=== PATIENT | female | born 1940 | race African-American/Black ===

== ENCOUNTER 2017-12-26 13:27 | Inpatient (IN) | payer MEDICARE, BC ==
[2017-12-26] MEDS ORDERED: RX INFO: IV CONTRAST WAS GIVEN 1 EACH MISC MISCELLANE PRN (13:56)
[2017-12-26] MEDS ORDERED: FAMOTIDINE 20 MG/2 ML VIAL IV STA (13:58)
[2017-12-26] MEDS ORDERED: methylPREDNISolone SOD SUCCI 125 MG/2 ML VIAL IV STA (13:58)
[2017-12-26] MEDS ORDERED: diphenhydrAMINE 50 MG/ML 1 ML VIAL IVP STA (13:58)
--- NOTE | 2017-12-26 14:17 | ED ---
Neuro HPI - General Chief Complaint: Neuro Symptoms/Deficit Stated Complaint: poss stroke Time Seen by Provider: 12/26/17 13:47 Source: patient Mode of arrival: wheelchair Limitations: no limitations - History of Present Illness Is the patient presenting with stroke symptoms?: Yes Last Known Well Date: 12/25/17 Last Known Well Time: 22:00 Initial Comments: 's patient is 77-year-old woman who presents to be evaluated for possible stroke. She states that she was feeling in her usual state condition when she went to bed last night, but she woke around 9 this morning and noticed that her right leg felt like it was heavy and swollen, and her right hand felt "like it was asleep." She states that the symptoms lasted for a number of minutes and did improve. However she noticed that around 10 AM she was having difficulty with expressing herself, she is having a hard time with word finding. When the patient's family saw her they felt that she should be seen in emergency department. Patient does note that she may have had a stroke in October of this year, having left-sided weakness and trouble with word finding and the patient states that she was not seen in the emergency Department for this, once here primary physician. Location: right arm, right leg History of same: Yes Place: home Severity: mild Quality: weak Improves With: time Worsens With: none Context: other (Woke with symptoms) Treatments Prior to Arrival: Aspirin - Related Data Home Medications: Home Medications Medication Instructions Recorded Confirmed Albuterol Inhaler [Ventolin Hfa 2 puff INHALATION RT-Q6H PRN 12/06/15 12/26/17 Inhaler] Budesonide [Pulmicort Flexhaler] 2 puff INHALATION RT-BID 12/26/17 12/26/17 Clopidogrel [Plavix] 75 mg PO DAILY 12/26/17 12/26/17 Levothyroxine Sodium [Synthroid] 75 mcg PO DAILY 12/26/17 12/26/17 Previous Rx's Medication Instructions Recorded Levalbuterol Nebulized [Xopenex 1.25 mg INHALATION RT-QID PRN #300 12/08/15 Nebulized] ml Aspirin EC [Ecotrin Low Dose] 81 mg PO DAILY #30 tablet. 12/28/17 Atorvastatin Calcium [Lipitor] 10 mg PO HS #30 tab 12/28/17 Allergies/Adverse Reactions: Allergies Allergy/AdvReac Type Severity Reaction Status Date / Time Iodinated Contrast- Oral and Allergy Anaphylaxis Verified 12/26/17 16:49 IV Dye [Iodinated Contrast Media - IV Dye] montelukast sodium Allergy Cough Verified 12/26/17 16:49 [From [facility]] Penicillins Allergy Rash/Hives Verified 12/26/17 16:49 prednisone Allergy Unknown Verified 12/26/17 16:49 Review of Systems ROS Statement: Those systems with pertinent positive or pertinent negative responses have been documented in the HPI. ROS Other: All systems not noted in ROS Statement are negative. Constitutional: Reports: weakness. Denies: fever, chills Eyes: Denies: vision change ENT: Denies: ear pain, hearing loss Respiratory: Denies: cough, dyspnea Cardiovascular: Denies: chest pain, palpitations, syncope Gastrointestinal: Denies: abdominal pain, vomiting, diarrhea Genitourinary: Denies: dysuria, hematuria Musculoskeletal: Denies: back pain Skin: Denies: rash Neurological: Reports: as per HPI, weakness, numbness. Denies: headache, paresthesias, confusion, abnormal gait, vertigo Hematological/Lymphatic: Denies: easy bleeding General Exam Limitations: no limitations General appearance: alert, in no apparent distress Head exam: Present: atraumatic, normocephalic, normal inspection Eye exam: Present: normal appearance. Absent: scleral icterus, conjunctival injection ENT exam: Present: normal oropharynx Neck exam: Present: normal inspection, full ROM Respiratory exam: Present: normal lung sounds bilaterally. Absent: respiratory distress, wheezes, rales, rhonchi, stridor Cardiovascular Exam: Present: regular rate, normal rhythm, normal heart sounds. Absent: systolic murmur, diastolic murmur, rubs, gallop GI/Abdominal exam: Present: soft. Absent: distended, tenderness, guarding, rebound, mass Extremities exam: Present: normal inspection, normal capillary refill. Absent: pedal edema, calf tenderness Back exam: Present: normal inspection. Absent: CVA tenderness (R), CVA tenderness (L) Skin exam: Present: warm, dry, intact, normal color. Absent: rash Stroke MDM - Lab Data Result diagrams: 12/28/17 05:40 12/28/17 05:40 Lab Results 12/26/17 12/26/17 12/26/17 Range/Units 14:23 14:23 14:23 WBC 5.3 (3.8-10.6) k/uL RBC 4.51 (3.80-5.40) m/uL Hgb 13.4 (11.4-16.0) gm/dL Hct 41.9 (34.0-46.0) % MCV 92.9 (80.0-100.0) fL MCH 29.6 (25.0-35.0) pg MCHC 31.8 (31.0-37.0) g/dL RDW 13.2 (11.5-15.5) % Plt Count 302 (150-450) k/uL Neutrophils % 65 % Lymphocytes % 23 % Monocytes % 6 % Eosinophils % 4 % Basophils % 1 % Neutrophils # 3.5 (1.3-7.7) k/uL Lymphocytes # 1.2 (1.0-4.8) k/uL Monocytes # 0.3 (0-1.0) k/uL Eosinophils # 0.2 (0-0.7) k/uL Basophils # 0.0 (0-0.2) k/uL PT (9.0-12.0) sec INR (<1.2) APTT (22.0-30.0) sec Sodium 144 (137-145) mmol/L Potassium 4.4 (3.5-5.1) mmol/L Chloride 107 (98-107) mmol/L Carbon Dioxide 27 (22-30) mmol/L Anion Gap 10 mmol/L BUN 14 (7-17) mg/dL Creatinine 1.00 (0.52-1.04) mg/dL Est GFR (CKD-EPI)AfAm 63 (>60 ml/min/1.73 sqM) Est GFR (CKD-EPI)NonAf 55 (>60 ml/min/1.73 sqM) Glucose 91 (74-99) mg/dL Calcium 9.5 (8.4-10.2) mg/dL Total Bilirubin 0.5 (0.2-1.3) mg/dL AST 26 (14-36) U/L ALT 27 (9-52) U/L Alkaline Phosphatase 44 (38-126) U/L Total Creatine Kinase 348 H (30-135) U/L CK-MB (CK-2) 4.3 H* (0.0-2.4) ng/mL CK-MB (CK-2) Rel Index 1.2 Troponin I <0.012 (0.000-0.034) ng/mL Total Protein 6.5 (6.3-8.2) g/dL Albumin 3.9 (3.5-5.0) g/dL 12/26/17 Range/Units 14:23 WBC (3.8-10.6) k/uL RBC (3.80-5.40) m/uL Hgb (11.4-16.0) gm/dL Hct (34.0-46.0) % MCV (80.0-100.0) fL MCH (25.0-35.0) pg MCHC (31.0-37.0) g/dL RDW (11.5-15.5) % Plt Count (150-450) k/uL Neutrophils % % Lymphocytes % % Monocytes % % Eosinophils % % Basophils % % Neutrophils # (1.3-7.7) k/uL Lymphocytes # (1.0-4.8) k/uL Monocytes # (0-1.0) k/uL Eosinophils # (0-0.7) k/uL Basophils # (0-0.2) k/uL PT 10.7 (9.0-12.0) sec INR 1.1 (<1.2) APTT 24.4 (22.0-30.0) sec Sodium (137-145) mmol/L Potassium (3.5-5.1) mmol/L Chloride (98-107) mmol/L Carbon Dioxide (22-30) mmol/L Anion Gap mmol/L BUN (7-17) mg/dL Creatinine (0.52-1.04) mg/dL Est GFR (CKD-EPI)AfAm (>60 ml/min/1.73 sqM) Est GFR (CKD-EPI)NonAf (>60 ml/min/1.73 sqM) Glucose (74-99) mg/dL Calcium (8.4-10.2) mg/dL Total Bilirubin (0.2-1.3) mg/dL AST (14-36) U/L ALT (9-52) U/L Alkaline Phosphatase (38-126) U/L Total Creatine Kinase (30-135) U/L CK-MB (CK-2) (0.0-2.4) ng/mL CK-MB (CK-2) Rel Index Troponin I (0.000-0.034) ng/mL Total Protein (6.3-8.2) g/dL Albumin (3.5-5.0) g/dL - Medical Decision Making Patient is a 77-year-old woman presenting with neurologic complaints but outside of the treatment window. It does appear that she is having multiple close TIAs, and patient be admitted to have further workup and neurology consultation. - EKG Data -: EKG Interpreted by Me EKG shows normal: sinus rhythm, axis (All), intervals (Normal), QRS complexes ( Normal), ST-T waves (Normal) Rate: normal (Rate 60 bpm) Interpretation: normal EKG Past Medical History Past Medical History: Asthma, CVA/TIA History of Any Multi-Drug Resistant Organisms: None Reported Past Surgical History: Hysterectomy, Orthopedic Surgery Additional Past Surgical History / Comment(s): thyroid, B/L knee surg Past Anesthesia/Blood Transfusion Reactions: No Reported Reaction Past Psychological History: No Psychological Hx Reported Smoking Status: Never smoker Past Alcohol Use History: None Reported Past Drug Use History: None Reported - Past Family History Father Family Medical History: Diabetes Mellitus Course Vital Signs 12/26/17 12/26/17 12/26/17 13:35 15:18 16:30 Temperature 97.7 F Pulse Rate 69 56 L 58 L Pulse Rate [ Internet Ecommerce Specialist ] Respiratory 18 17 17 Rate Blood Pressure 145/82 166/81 137/79 Blood Pressure [Right Arm] O2 Sat by Pulse 100 100 100 Oximetry 12/26/17 12/26/17 12/26/17 16:55 17:55 18:55 Temperature Pulse Rate Pulse Rate [ 60 72 62 Internet Ecommerce Specialist ] Respiratory 17 17 17 Rate Blood Pressure Blood Pressure 134/74 128/70 147/72 [Right Arm] O2 Sat by Pulse 100 99 Oximetry 12/26/17 19:37 Temperature Pulse Rate 64 Pulse Rate [ Internet Ecommerce Specialist ] Respiratory 17 Rate Blood Pressure 149/72 Blood Pressure [Right Arm] O2 Sat by Pulse 99 Oximetry Disposition Clinical Impression: TIA (transient ischemic attack) Disposition: ADMITTED IP TO THIS HOSP Condition: Stable Is patient prescribed a controlled substance at d/c from ED?: No
[2017-12-26 14:41] LABS: Albumin 3.9 g/dL (3.5-5.0); Calcium 9.5 mg/dL (8.4-10.2); Potassium 4.4 mmol/L (3.5-5.1); Total Bilirubin 0.5 mg/dL (0.2-1.3); Total Protein 6.5 g/dL (6.3-8.2)
[2017-12-26 14:43] LABS: Basophils % (A) 1 %; Eosinophils # (A) 0.2 k/uL (0-0.7); Eosinophils % (A) 4 %; HCT 41.9 % (34.0-46.0); HGB 13.4 gm/dL (11.4-16.0); Lymphocytes # (A) 1.2 k/uL (1.0-4.8); Lymphocytes % (A) 23 %; MCH 29.6 pg (25.0-35.0); MCHC 31.8 g/dL (31.0-37.0); MCV 92.9 fL (80.0-100.0); Monocytes # (A) 0.3 k/uL (0-1.0); Monocytes % (A) 6 %; Neutrophils # (A) 3.5 k/uL (1.3-7.7); Neutrophils % (A) 65 %; Platelet Count 302 k/uL (150-450); RBC 4.51 m/uL (3.80-5.40); RDW 13.2 % (11.5-15.5); WBC 5.3 k/uL (3.8-10.6)
[2017-12-26 14:46] LABS: INR 1.1 (<1.2); Partial Thromboplastin Time 24.4 sec (22.0-30.0); Prothrombin Time 10.7 sec (9.0-12.0)
--- NOTE | 2017-12-26 14:46 | XR ---
EXAMINATION TYPE: XR chest 1V portable DATE OF EXAM: 12/26/2017 COMPARISON: December 06, 2015. HISTORY: Shortness of breath TECHNIQUE: Single frontal view of the chest is obtained. FINDINGS: There is no focal air space opacity, pleural effusion, or pneumothorax seen. The cardiac silhouette size is within normal limits. The osseous structures are intact. IMPRESSION: No acute process.
[2017-12-26 14:54] LABS: Creatine Kinase 348 U/L (30-135)
--- NOTE | 2017-12-26 15:00 | CT ---
EXAMINATION TYPE: CT brain wo con for TPA DATE OF EXAM: 12/26/2017 COMPARISON: NONE HISTORY: Patient poor historian. Neuro deficits. CT DLP: 809.2 mGycm Automated exposure control for dose reduction was used. FINDINGS: No acute hemorrhage or major vessel territorial infarct is identified. There is no mass, mass effect, or midline shift. Calvarium is unremarkable. The ventricles and sulci are age-appropriate. However, there are mild chronic white matter ischemic changes noted. Mastoid air cells are well aerated. IMPRESSION: NO SIGNIFICANT FINDINGS. FINDINGS WERE DISCUSSED OVER THE PHONE WITH THE ORDERING PHYSICIAN DR. Yovani gary, BY DR. WING AT 1607 12/26/2017
[2017-12-26 15:05] LABS: Troponin I <0.012 ng/mL (0.000-0.034)
[2017-12-26 15:09] LABS: Creatine Kinase MB 4.3 ng/mL (0.0-2.4)
--- NOTE | 2017-12-26 15:39 | CT ---
EXAMINATION TYPE: CT angio head neck DATE OF EXAM: 12/26/2017 HISTORY: Patient poor historian. Neuro deficits. COMPARISON: CT of the head obtained earlier today CT DLP: 286.4 mGycm. Automated Exposure Control for Dose Reduction was Utilized. TECHNIQUE: CTA scan of the neck is performed with IV Contrast, patient injected with 100 mL of Isovu e 300, axial images are obtained, coronal and sagittal reformatted images are reviewed. Three-D recon structed and MIP images are created on an independent workstation and reviewed. FINDINGS: Carotid/Vascular Structures: There is a normal three-vessel aortic arch. There is a retropharyngeal c ourse to the left internal carotid artery especially at the level of C3. No significant stenosis is i dentified in either internal carotid artery. [place] vessels appear unremarkable. There is no definite aneurysm, dissection, or arteriove nous malformation identified. The right A1 segment is very hypoplastic. There is an anterior communic ating artery identified. Intracranial venous structures appear unremarkable. Other: None IMPRESSION: No significant abnormality is seen. Retropharyngeal course to the left internal carotid artery is noted.
[2017-12-26] MEDS ORDERED: ASPIRIN 325 MG TAB PO STA (16:24)
[2017-12-26 18:20] LABS: Appearance,Urine Clear (Clear); Bacteria,Urine Rare /hpf; Bilirubin,Urine Negative (Negative); Blood,Urine Negative (Negative); Color,Urine Light Yellow; Glucose,Urine (UA) Negative (Negative); Ketones,Urine Negative (Negative); Leukocyte Esterase,Urine Small (Negative); Nitrite,Urine Negative (Negative); Protein,Urine Negative (Negative); RBC,Urine <1 /hpf (0-5); Specific Gravity,Urine 1.037 (1.001-1.035); Squamous Epithelial Cell,Urine 3 /hpf (0-4); Urobilinogen,Urine <2.0 mg/dL (<2.0); WBC,Urine 1 /hpf (0-5)
[2017-12-26] MEDS: BUDESONIDE 1 MG/2 ML NEBU INHALATION SCH (19:53)
[2017-12-26 20:30] VITALS: BMI 32.2
[2017-12-27 04:12] LABS: Cholesterol 173 mg/dL (<200); HDL Cholesterol 70 mg/dL (40-60); LDL Cholesterol,Calculated 95 mg/dL (0-99); Triglycerides 42 mg/dL (<150)
[2017-12-27] MEDS: LEVOTHYROXINE 112 MCG TAB PO SCH (06:47)
[2017-12-27] MEDS: CLOPIDOGREL 75 MG TAB PO SCH (08:04)
[2017-12-27] MEDS: ASPIRIN 325 MG TAB PO SCH (08:04)
[2017-12-27] MEDS ORDERED: AZITHROMYCIN 500 MG TAB PO SCH (09:00)
--- NOTE | 2017-12-27 11:02 | P.HPIM ---
History of Present Illness H&P Date: 12/27/17 Chief Complaint: Right-sided weakness and heaviness in the arm and leg This is a 77-year-old female with a known history of CVA, asthma and hypothyroidism. Patient reports she was just recently diagnosed with a stroke in October. And recently last week she went to her PCP with concerns of stroke like symptoms. And workup was started outpatient. Dr. Gabriel had started patient on Plavix. Apparently yesterday morning around 9:00 patient woke up with headache in the front of her head with right arm and leg weakness and heaviness. She felt that the arm and leg were more swollen than the left. She also had some difficulty with finding her words. Patient reports that symptoms lasted for about 10 minutes. She called a family member who brought her into the emergency room for further evaluation and treatment. Patient reports that the evening before she had been in her usual state of health. Patient denies any chest pain or shortness of breath. Denies any heart palpitations, dizziness or lightheadedness and any vision changes. She denies any nausea or vomiting. Denies any bowel movement changes or urinary symptoms. Computed tomography scan of the brain shows no acute changes. CTA of the neck shows no significant abnormality. EKG shows normal sinus rhythm. Chest x-ray was negative. Echocardiogram is pending. Neurology has been consulted. Review of Systems Please refer to HPI otherwise unremarkable Past Medical History Past Medical History: Asthma, CVA/TIA, Hyperlipidemia, Pneumonia History of Any Multi-Drug Resistant Organisms: None Reported Past Surgical History: Hysterectomy, Orthopedic Surgery Additional Past Surgical History / Comment(s): thyroid, B/L knee surg Past Anesthesia/Blood Transfusion Reactions: No Reported Reaction Past Psychological History: No Psychological Hx Reported Smoking Status: Never smoker Past Alcohol Use History: None Reported Past Drug Use History: None Reported - Past Family History Father Family Medical History: Diabetes Mellitus Medications and Allergies Home Medications Medication Instructions Recorded Confirmed Type Albuterol Inhaler [Ventolin Hfa 2 puff INHALATION RT-Q6H PRN 12/06/15 12/26/17 History Inhaler] Levalbuterol Nebulized [Xopenex 1.25 mg INHALATION RT-QID PRN #300 12/08/15 Rx Nebulized] ml Budesonide [Pulmicort Flexhaler] 2 puff INHALATION RT-BID 12/26/17 12/26/17 History Clopidogrel [Plavix] 75 mg PO DAILY 12/26/17 12/26/17 History Levothyroxine Sodium [Synthroid] 75 mcg PO DAILY 12/26/17 12/26/17 History Allergies Allergy/AdvReac Type Severity Reaction Status Date / Time Iodinated Contrast- Oral and Allergy Anaphylaxis Verified 12/26/17 16:49 IV Dye [Iodinated Contrast Media - IV Dye] montelukast sodium Allergy Cough Verified 12/26/17 16:49 [From [facility]] Penicillins Allergy Rash/Hives Verified 12/26/17 16:49 prednisone Allergy Unknown Verified 12/26/17 16:49 Physical Exam Vitals: Vital Signs Temp Pulse Pulse Pulse Resp BP BP 12/27/17 08:00 16 12/27/17 07:58 97.5 F L 64 16 116/66 12/27/17 04:00 97 F L 58 L 16 90/51 12/27/17 00:00 97.5 F L 85 16 112/59 12/26/17 20:06 66 12/26/17 20:00 97.5 F L 90 16 122/66 12/26/17 19:54 62 12/26/17 19:37 64 17 149/72 12/26/17 18:55 62 17 147/72 12/26/17 17:55 72 17 128/70 12/26/17 16:55 60 17 134/74 12/26/17 16:30 58 L 17 137/79 12/26/17 15:18 56 L 17 166/81 12/26/17 13:35 97.7 F 69 18 145/82 Pulse Ox 12/27/17 08:00 12/27/17 07:58 98 12/27/17 04:00 97 12/27/17 00:00 99 12/26/17 20:06 12/26/17 20:00 100 12/26/17 19:54 12/26/17 19:37 99 12/26/17 18:55 99 12/26/17 17:55 100 12/26/17 16:55 12/26/17 16:30 100 12/26/17 15:18 100 12/26/17 13:35 100 Intake and Output 12/26/17 12/27/17 12/27/17 22:59 06:59 14:59 Intake Total 360 Balance 360 Intake: Oral 360 Other: # Voids 1 Weight 82.6 kg 82.6 kg Head normocephalic Neck supple Lungs clear to auscultation bilaterally no wheezing or crackles Heart regular rate and rhythm S1-S2, no rub or gallop Abdomen is soft nontender nondistended positive bowel sounds no hepatosplenomegaly Extremities no edema Neuro alert and orientated to 3. No facial droop or slurred speech. 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 Results CBC & Chem 7: 12/26/17 14:23 12/26/17 14:23 Labs: Abnormal Lab Results - Last 24 Hours (Table) 12/26/17 12/26/17 12/27/17 Range/Units 14:23 16:36 03:35 Total Creatine Kinase 348 H (30-135) U/L CK-MB (CK-2) 4.3 H* (0.0-2.4) ng/mL HDL Cholesterol 70 H (40-60) mg/dL Ur Specific [place] 1.037 H (1.001-1.035) Ur Leukocyte Esterase Small H (Negative) Urine Bacteria Rare H (None) /hpf Thrombosis Risk Factor Assmnt - Choose All That Apply Any of the Below Risk Factors Present?: Yes Each Factor Represents 1 point: Obesity (BMI >25) Other Risk Factors: Yes Each Risk Factor Represents 3 Points: Age 75 years or older Other congenital or acquired thrombophilia - If yes, enter type in comment: No Thrombosis Risk Factor Assessment Total Risk Factor Score: 4 Thrombosis Risk Factor Assessment Level: Moderate Risk Assessment and Plan Assessment: 1. Right-sided weakness with difficulty finding her words: Possible TIA. Symptoms resolved after 10 minutes. Computed tomography scan of the brain shows no acute changes. CT of the neckand abnormality. EKG and telemetry is showing normal sinus rhythm. Echo is pending. Neurology has been consulted. Continue with telemetry monitoring to rule out any atrial fibrillation. Continue with aspirin and Plavix. Consult PT OT 2. History of recent stroke in October 3. Hypothyroidism continue Synthroid 4. Asthma stable continue with the Pulmicort and albuterol nebulizer treatments GI prophylaxis Pepcid and DVT prophylaxis Lovenox Time with Patient: Greater than 30 (Greater than 50% of the total time spent in counseling and coordination of care.I performed an examination of the patient and discussed their management with the physician Sanitarian Aide. I have reviewed the Physician Sanitarian Aide's notes and agree with the documented findings and plan of care)
--- NOTE | 2017-12-27 11:29 | ECHOF ---
Referral Reason:Thrombus MEASUREMENTS -------- HEIGHT: 160.0 cm WEIGHT: 82.6 kg BP: 90/51 RVIDd: 2.5 cm (< 3.3) IVSd: 1.3 cm (0.6 - 1.1) LVIDd: 3.5 cm (3.9 - 5.3) LVPWd: 1.0 cm (0.6 - 1.1) IVSs: 1.4 cm LVIDs: 2.4 cm LVPWs: 1.1 cm LA Diam: 3.4 cm (2.7 - 3.8) LAESV Index (A-L): 29.68 ml/m Ao Diam: 2.8 cm (2.0 - 3.7) AV Cusp: 1.7 cm (1.5 - 2.6) LA Diam: 3.3 cm (2.7 - 3.8) MV EXCURSION: 16.703 mm (> 18.000) MV EF SLOPE: 37 mm/s (70 - 150) EPSS: 0.2 cm MV E Dylan: 0.63 m/s MV DecT: 189 ms MV A Dylan: 1.05 m/s MV E/A Ratio: 0.60 RAP: 5.00 mmHg RVSP: 14.00 mmHg FINDINGS -------- Sinus rhythm. This was a technically adequate study. The left ventricular size is normal. There is mild concentric left ventricular hypertrophy. Overa ll left ventricular systolic function is low-normal with, an EF between 50 - 55 %. The right ventricle is normal in size. The left atrial size is normal. LA is midly dilated 29-33ml/m2. The right atrial size is normal. The aortic valve is trileaflet, and appears structurally normal. No aortic stenosis or regurgitation. Mild mitral annular calcification present. Mild mitral regurgitation is present. Mild tricuspid regurgitation present. There is no evidence of pulmonary hypertension. The right v entricular systolic pressure, as measured by Doppler, is 14.00mmHg. Trace/mild (physiologic) pulmonic regurgitation. The aortic root size is normal. There is no pericardial effusion. CONCLUSIONS -------- 1. The left ventricular size is normal. 2. There is mild concentric left ventricular hypertrophy. 3. Overall left ventricular systolic function is low-normal with, an EF between 50 - 55 %. 4. LA is midly dilated 29-33ml/m2. 5. The aortic valve is trileaflet, and appears structurally normal. No aortic stenosis or regurgitati on. 6. Mild mitral annular calcification present. 7. Mild mitral regurgitation is present. 8. Mild tricuspid regurgitation present. 9. There is no evidence of pulmonary hypertension. 10. The right ventricular systolic pressure, as measured by Doppler, is 14.00mmHg. 11. Trace/mild (physiologic) pulmonic regurgitation. 12. The aortic root size is normal. 13. There is no pericardial effusion. AIRPLANE ELECTRICIAN: Mendy Montague RDCS
[2017-12-27] MEDS: ALBUTEROL NEBULIZED 2.5 MG/3 ML INHALATION PRN ×2 (11:49→20:26)
[2017-12-27] MEDS: BUDESONIDE 1 MG/2 ML NEBU INHALATION SCH ×2 (11:59→20:26)
[2017-12-27] MEDS: ENOXAPARIN 40 MG/0.4 ML SYRINGE SQ SCH (12:25)
--- NOTE | 2017-12-27 21:36 | P.CNNES ---
History of Present Illness Consult date: 12/27/17 History of Present Illness: The patient is a 77-year-old right-handed black female who woke up on Wednesday morning with swelling of the hands and legs and face. She also had a transient episode of slurred speech and right-sided weakness. One week prior to that she had had an event similar with swelling of the face arm and legs and slurred speech lasting for less than a minute. At that time she had seen her primary care physician Dr. Gabriel who placed her on Plavix. The patient states she stopped taking Plavix on because she was afraid that it might interfere with one of her asthma medications because she did not tell the doctor about the asthma pill. The patient reports that yesterday she had 2 events similar to each other where she experienced the swelling of the body as well as slurred speech. The episodes were very brief and her brother brought her to [facility] emergency room. She states that she was back to her normal self. There has been no more episodes of swelling or right-sided weakness or slurred speech. Emergency room she had a CAT scan of the brain which did not show any acute stroke or hemorrhage. She had a CTA in the emergency room did not show any significant abnormality. No significant stenosis were was identified in either internal carotid artery. She was admitted to the hospital with possible TIA and neurology was consulted. Patient denies any other neurologic complaints such as headache dizziness or ataxia. Review of Systems Constitutional: Denies chills, Denies fever Cardiovascular: Denies chest pain, Denies shortness of breath Respiratory: Denies cough Integumentary: Denies pruritus, Denies rash Neurological: Denies numbness, Denies weakness Psychiatric: Denies anxiety, Denies depression Past Medical History Past Medical History: Asthma, CVA/TIA, Hyperlipidemia, Pneumonia History of Any Multi-Drug Resistant Organisms: None Reported Past Surgical History: Hysterectomy, Orthopedic Surgery Additional Past Surgical History / Comment(s): thyroid, B/L knee surg Past Anesthesia/Blood Transfusion Reactions: No Reported Reaction Past Psychological History: No Psychological Hx Reported Smoking Status: Never smoker Past Alcohol Use History: None Reported Past Drug Use History: None Reported - Past Family History Father Family Medical History: Diabetes Mellitus Medications and Allergies Home Medications Medication Instructions Recorded Confirmed Type Albuterol Inhaler [Ventolin Hfa 2 puff INHALATION RT-Q6H PRN 12/06/15 12/26/17 History Inhaler] Levalbuterol Nebulized [Xopenex 1.25 mg INHALATION RT-QID PRN #300 12/08/15 Rx Nebulized] ml Budesonide [Pulmicort Flexhaler] 2 puff INHALATION RT-BID 12/26/17 12/26/17 History Clopidogrel [Plavix] 75 mg PO DAILY 12/26/17 12/26/17 History Levothyroxine Sodium [Synthroid] 75 mcg PO DAILY 12/26/17 12/26/17 History Allergies Allergy/AdvReac Type Severity Reaction Status Date / Time Iodinated Contrast- Oral and Allergy Anaphylaxis Verified 12/26/17 16:49 IV Dye [Iodinated Contrast Media - IV Dye] montelukast sodium Allergy Cough Verified 12/26/17 16:49 [From [facility]] Penicillins Allergy Rash/Hives Verified 12/26/17 16:49 prednisone Allergy Unknown Verified 12/26/17 16:49 Physical Examination - Vital Signs Vital Signs: Vital Signs Temp Pulse Pulse Resp BP Pulse Ox 12/27/17 20:41 76 12/27/17 20:27 75 12/27/17 20:15 97.8 F 75 17 101/69 98 12/27/17 20:10 75 17 12/27/17 16:00 97.5 F L 72 16 128/64 94 L 12/27/17 12:08 60 12/27/17 12:00 97.3 F L 70 18 106/68 95 12/27/17 11:59 60 12/27/17 11:49 60 12/27/17 11:41 16 12/27/17 08:00 16 12/27/17 07:58 97.5 F L 64 16 116/66 98 12/27/17 04:00 97 F L 58 L 16 90/51 97 12/27/17 00:00 97.5 F L 85 16 112/59 99 Intake and Output 12/27/17 12/27/17 12/27/17 06:59 14:59 22:59 Intake Total 240 490 Output Total 600 Balance -360 490 Intake: IV 10 0.9 10 Oral 240 480 Output: Urine 600 Other: Voiding Method Toilet # Voids 1 1 Weight 82.6 kg - Constitutional General appearance: obese - EENT EENT: PERRL, hearing intact, vision intact - Respiratory Respiratory: lungs clear - Cardiovascular Cardiovascular: regular rate, normal S1, normal S2 - Neurologic Mental status: She was awake alert and oriented. There was no a aphasia or dysarthria. Cranial nerve examination: PERRL, EOMI, VFF, V1/V2/V3 grossly intact, face symmetric, tongue midline Speech examination: intact Sensorimotor examination: intact Detailed motor examination: grossly full strength in all extremities Reflexes: 2+: knee - Psychiatric Psychiatric: mood/affect appropriate Results - Laboratory Findings CBC and BMP: 12/26/17 14:23 12/26/17 14:23 Abnormal Lab Findings: Abnormal Labs 12/26/17 12/26/17 12/27/17 14:23 16:36 03:35 Total Creatine Kinase 348 H CK-MB (CK-2) 4.3 H* HDL Cholesterol 70 H Ur Specific Hume 1.037 H Ur Leukocyte Esterase Small H Urine Bacteria Rare H Assessment and Plan (1) TIA (transient ischemic attack) Current Visit: Yes Status: Acute Code(s): G45.9 - TRANSIENT CEREBRAL ISCHEMIC ATTACK, UNSPECIFIED SNOMED Code(s): 879779622 Plan: The patient is a 77-year-old woman with history of previous TIA consisting of slurred speech admitted to the hospital with episode of slurred speech as well as right-sided weakness. This was transient. She has not had any further episodes. The patient had been placed on Plavix last week with her primary care physician but the patient stopped taking it several days ago concerned that it might interfere with one of her other medications. The patient has likely had a left hemispheric TIA. She has had a CTA which did not show any significant stenosis in either carotid internal carotid artery. She is on telemetry monitoring and she has had a CAT scan of the brain which was unremarkable. She reports that she is also had an MRI at [facility] and we will request a copy of that report to be sent here. Her CPK was elevated on admission as well as her MB fraction. Troponins were unremarkable echo shows mild mitral and tricuspid regurgitation. EF of 50-55% the left ventricular systolic function. Cholesterol is normal. Continue close neuro checks continue Plavix.
[2017-12-28] MEDS: LEVOTHYROXINE 112 MCG TAB PO SCH (06:24)
[2017-12-28 06:29] VITALS: TEMP 97.9
[2017-12-28 06:46] LABS: Basophils % (A) 0 %; Eosinophils # (A) 0.1 k/uL (0-0.7); Eosinophils % (A) 2 %; HCT 40.2 % (34.0-46.0); HGB 12.7 gm/dL (11.4-16.0); Lymphocytes # (A) 2.2 k/uL (1.0-4.8); Lymphocytes % (A) 27 %; MCHC 31.7 g/dL (31.0-37.0); MCV 94.4 fL (80.0-100.0); Mean Platelet Volume 6.9; Monocytes # (A) 0.4 k/uL (0-1.0); Monocytes % (A) 5 %; Neutrophils # (A) 5.3 k/uL (1.3-7.7); Neutrophils % (A) 64 %; Platelet Count 320 k/uL (150-450); RBC 4.25 m/uL (3.80-5.40); RDW 13.3 % (11.5-15.5); WBC 8.2 k/uL (3.8-10.6)
[2017-12-28 06:48] LABS: Glucose,Whole Blood 74 mg/dL (75-99)
[2017-12-28 07:07] LABS: Albumin 3.2 g/dL (3.5-5.0); Calcium 8.9 mg/dL (8.4-10.2); Potassium 4.2 mmol/L (3.5-5.1); Total Bilirubin 0.2 mg/dL (0.2-1.3); Total Protein 5.5 g/dL (6.3-8.2)
[2017-12-28] MEDS: CLOPIDOGREL 75 MG TAB PO SCH (07:59)
[2017-12-28] MEDS: ASPIRIN 325 MG TAB PO SCH (07:59)
[2017-12-28] MEDS: ENOXAPARIN 40 MG/0.4 ML SYRINGE SQ SCH (07:59)
[2017-12-28] MEDS: BUDESONIDE 1 MG/2 ML NEBU INHALATION SCH (08:36)
[2017-12-28] MEDS ORDERED: FAMOTIDINE 20 MG TAB PO SCH (09:00)
[2017-12-28 09:08] VITALS: BP 110/57; PULSE 84; RESP 18
--- NOTE | 2017-12-28 10:58 | P.DS ---
Providers Date of admission: 12/26/17 16:27 Expected date of discharge: 12/28/17 Attending physician: Kelsey Real Consults: 12/26/17 16:25 Consult Physician Routine Consulting Provider: Josseline Prabhakar Consult Reason/Comments: TIA Do you want consulting provider notified?: Yes Primary care physician: Melissa Gabriel Hospital Course: Discharge diagnosis 1. TIA with Right-sided weakness with difficulty finding her words: Symptoms resolved after 10 minutes. Computed tomography scan of the brain shows no acute changes. CTA of the neck no abnormality. EKG and telemetry is showing normal sinus rhythm. Echo shows an EF of 50-55% with no severe valvular abnormality. No arrhythmia noted on EKG or telemetry. Patient seen evaluated by neurology. Aspirin 81 mg daily and Lipitor 10 mg daily has been added. 2. History of recent stroke in October 3. Hypothyroidism continue Synthroid 4. Asthma stable continue with the Pulmicort and albuterol nebulizer treatments 5. Mild renal insufficiency: Creatinine 1.10. Encouraged patient to drink plenty of water repeat BMP in 1 week Hospital course This is a 77-year-old female with a known history of CVA, asthma and hypothyroidism. Patient reports she was just recently diagnosed with a stroke in October. And recently last week she went to her PCP with concerns of stroke like symptoms. And workup was started outpatient. Dr. Gabriel had started patient on Plavix. Apparently yesterday morning around 9:00 patient woke up with headache in the front of her head with right arm and leg weakness and heaviness. She felt that the arm and leg were more swollen than the left. She also had some difficulty with finding her words. Patient reports that symptoms lasted for about 10 minutes. She called a family member who brought her into the emergency room for further evaluation and treatment. Patient reports that the evening before she had been in her usual state of health. Patient denies any chest pain or shortness of breath. Denies any heart palpitations, dizziness or lightheadedness and any vision changes. She denies any nausea or vomiting. Denies any bowel movement changes or urinary symptoms. Computed tomography scan of the brain shows no acute changes. CTA of the neck shows no significant abnormality. EKG shows normal sinus rhythm. Chest x-ray was negative. Echocardiogram is pending. Neurology has been consulted. Patient's symptoms had resolved. Results of testing as stated above. Patient likely suffered from a TIA. Aspirin 81 mg daily and Lipitor 10 mg daily have been added to her regimen of medications. She is medical stable for discharge. And will follow-up with neurology in the office. I performed an examination of the patient and discussed their management with the physician Office Helper [employer]er[employer]. I have reviewed the Physician Office Helper [employer]er[employer]'s notes and agree with the documented findings and plan of care Patient Condition at Discharge: Stable Plan - Discharge Summary New Discharge Prescriptions: New Aspirin EC [Ecotrin Low Dose] 81 mg PO DAILY #30 tablet. Atorvastatin Calcium [Lipitor] 10 mg PO HS #30 tab Continue Albuterol Inhaler [Ventolin Hfa Inhaler] 2 puff INHALATION RT-Q6H PRN PRN Reason: Shortness Of Breath Levalbuterol Nebulized [Xopenex Nebulized] 1.25 mg INHALATION RT-QID PRN # 300 ml PRN Reason: Shortness Of Breath Clopidogrel [Plavix] 75 mg PO DAILY Levothyroxine Sodium [Synthroid] 75 mcg PO DAILY Budesonide [Pulmicort Flexhaler] 2 puff INHALATION RT-BID Discharge Medication List Albuterol Inhaler [Ventolin Hfa Inhaler] 2 puff INHALATION RT-Q6H PRN 12/06/15 [ History] Levalbuterol Nebulized [Xopenex Nebulized] 1.25 mg INHALATION RT-QID PRN #300 ml 12/08/15 [Rx] Budesonide [Pulmicort Flexhaler] 2 puff INHALATION RT-BID 12/26/17 [History] Clopidogrel [Plavix] 75 mg PO DAILY 12/26/17 [History] Levothyroxine Sodium [Synthroid] 75 mcg PO DAILY 12/26/17 [History] Aspirin EC [Ecotrin Low Dose] 81 mg PO DAILY #30 tablet. 12/28/17 [Rx] Atorvastatin Calcium [Lipitor] 10 mg PO HS #30 tab 12/28/17 [Rx] Follow up Appointment(s)/Referral(s): Amy Prabhakar MD [STAFF PHYSICIAN] - 01/06/18 2:30 pm () Melissa Gabriel DO [Primary Care Provider] - 01/10/18 2:00 pm (Wednesday) Ambulatory/Diagnostic Orders: Basic Metabolic Panel [LAB.AMB] Time Frame: 1 Week, Location: Determined By Patient Patient Instructions/Handouts: Transient Ischemic Attack (DC)
== END 2017-12-28 12:47 | disposition home or self-care (01) | DRG 69 ==
LOC: EC 13:27 → 6SEL 16:27
PROVIDERS: ADMIT Internal Medicine; ATTEND Internal Medicine
DX: G45.9 Transient cerebral ischemic attack, unspecified (principal); E78.5 Hyperlipidemia, unspecified; E03.9 Hypothyroidism, unspecified; J45.909 Unspecified asthma, uncomplicated; E66.9 Obesity, unspecified; N28.9 Disorder of kidney and ureter, unspecified; Z79.890 Hormone replacement therapy; Z86.73 Personal history of transient ischemic attack (TIA), and cerebral infarction without residual deficits; Z79.02 Long term (current) use of antithrombotics/antiplatelets; Z79.82 Long term (current) use of aspirin; Z68.32 Body mass index [BMI] 32.0-32.9, adult; Z88.0 Allergy status to penicillin; Z88.8 Allergy status to other drugs, medicaments and biological substances; Z91.041 Radiographic dye allergy status; Z79.899 Other long term (current) drug therapy; Z83.3 Family history of diabetes mellitus; Z90.710 Acquired absence of both cervix and uterus; Z87.01 Personal history of pneumonia (recurrent); R53.1 Weakness
CPT/HCPCS: 36415; 70450; 70496; 70498; 71045; 80053; 80061; 81001; 82550; 82553; 84484; 85025; 85610; 85730; 93005; 93306; 94640; 96374; 96375; 99285

== ENCOUNTER → 2018-01-19 | Outpatient (CLI) | payer MEDICARE, BC | END | disposition home or self-care (01) | LOC: RADECHMAIN 12:20 | PROVIDERS: ATTEND Family Medicine | DX: R00.2 Palpitations (principal); G45.9 Transient cerebral ischemic attack, unspecified | CPT/HCPCS: 93270; 93271 ==

== ENCOUNTER 2018-01-22 08:59 | Emergency (ER) | payer MEDICARE, BC ==
[2018-01-22 09:09] VITALS: BP 136/82; PULSE 69; RESP 16; TEMP 97.8
--- NOTE | 2018-01-22 09:32 | ED ---
General Adult HPI - General Chief complaint: Overdose Stated complaint: Accidentally took 2nd dose of medication Time Seen by Provider: 01/22/18 09:12 Source: patient, RN notes reviewed, old records reviewed Mode of arrival: ambulatory Limitations: no limitations - History of Present Illness Initial comments: Patient is 77-year-old female presented to the emergency room today with a chief complaint of an accidental second dose of her Plavix this morning. She states she wakes up early in the morning at 3 AM to take her dose of Plavix has been she takes her Synthroid later when she wakes up. She states that when she woke up again at 7 AM she went to take her Synthroid pill but then noticed that she accidentally grabbed the wrong pill bottle and took a second dose of Plavix. Patient denies any complaints or symptoms. Patient denies any recent fever, chills, shortness of breath, chest pain, back pain, abdominal pain, nausea or vomiting, numbness or tingling, dysuria or hematuria, constipation or diarrhea, headaches or visual changes, or any other complaints. - Related Data Home Medications Medication Instructions Recorded Confirmed Albuterol Inhaler [Ventolin Hfa 2 puff INHALATION RT-Q6H PRN 12/06/15 01/22/18 Inhaler] Budesonide [Pulmicort Flexhaler] 2 puff INHALATION RT-BID 12/26/17 01/22/18 Clopidogrel [Plavix] 75 mg PO DAILY 12/26/17 01/22/18 Levothyroxine Sodium [Synthroid] 75 mcg PO DAILY 12/26/17 01/22/18 Previous Rx's Medication Instructions Recorded Levalbuterol Nebulized [Xopenex 1.25 mg INHALATION RT-QID PRN #300 12/08/15 Nebulized] ml Aspirin EC [Ecotrin Low Dose] 81 mg PO DAILY #30 tablet. 12/28/17 Atorvastatin Calcium [Lipitor] 10 mg PO HS #30 tab 12/28/17 Allergies Allergy/AdvReac Type Severity Reaction Status Date / Time Iodinated Contrast- Oral and Allergy Anaphylaxis Verified 01/22/18 09:09 IV Dye [Iodinated Contrast Media - IV Dye] montelukast sodium Allergy Cough Verified 01/22/18 09:09 [From [facility]] Penicillins Allergy Rash/Hives Verified 01/22/18 09:09 prednisone Allergy Unknown Verified 01/22/18 09:09 Review of Systems ROS Statement: Those systems with pertinent positive or pertinent negative responses have been documented in the HPI. ROS Other: All systems not noted in ROS Statement are negative. Past Medical History Past Medical History: Asthma, CVA/TIA History of Any Multi-Drug Resistant Organisms: None Reported Past Surgical History: Hysterectomy, Orthopedic Surgery Additional Past Surgical History / Comment(s): thyroid, B/L knee surg Past Anesthesia/Blood Transfusion Reactions: No Reported Reaction Past Psychological History: No Psychological Hx Reported Smoking Status: Never smoker Past Alcohol Use History: None Reported Past Drug Use History: None Reported - Past Family History Father Family Medical History: Diabetes Mellitus General Exam - General Exam Comments Initial Comments: General: The patient is awake and alert, in no distress, and does not appear acutely ill. Eye: extra-ocular movements are intact. No nystagmus. There is normal conjunctiva bilaterally. Neck: The neck is supple, there is no tenderness or JVD. Cardiovascular: There is a regular rate and rhythm. No murmur, rub or gallop is appreciated. Respiratory: Lungs are clear to auscultation, respirations are non-labored, breath sounds are equal. No wheezes, stridor, rales, or rhonchi. Musculoskeletal: Normal ROM, no tenderness. Strength 5/5. Sensation intact. Neurological: A&O x 3. CN II-XII intact, There are no obvious motor or sensory deficits. Coordination appears grossly intact. Speech is normal. Skin: Skin is warm and dry and no rashes or lesions are noted. Psychiatric: Cooperative, appropriate mood & affect, normal judgment. Limitations: no limitations Course Vital Signs 01/22/18 09:05 Temperature 97.8 F Pulse Rate 69 Respiratory 16 Rate Blood Pressure 136/82 O2 Sat by Pulse 98 Oximetry Disposition Clinical Impression: Accidental overdose Disposition: HOME SELF-CARE Condition: Good Instructions: Clopidogrel (By mouth) Is patient prescribed a controlled substance at d/c from ED?: No Referrals: Melissa Gabriel DO [Primary Care Provider] - 1-2 days Time of Disposition: 09:32
== END 2018-01-22 09:58 | disposition home or self-care (01) ==
LOC: EC 08:59
DX: T45.521A Poisoning by antithrombotic drugs, accidental (unintentional), initial encounter (principal); J45.909 Unspecified asthma, uncomplicated; Z86.73 Personal history of transient ischemic attack (TIA), and cerebral infarction without residual deficits; Z79.51 Long term (current) use of inhaled steroids; Z79.02 Long term (current) use of antithrombotics/antiplatelets; Z79.899 Other long term (current) drug therapy; Z91.041 Radiographic dye allergy status; Z88.8 Allergy status to other drugs, medicaments and biological substances; Z88.0 Allergy status to penicillin
CPT/HCPCS: 99284

== ENCOUNTER 2018-03-17 07:49 | Day surgery (SDC) | payer MEDICARE, BC ==
[2018-03-14 14:35] VITALS: BMI 32.5
[2018-03-17] MEDS ORDERED: SODIUM CHLORIDE 0.9% 1,000 ML IV ONE (08:04)
[2018-03-17] MEDS ORDERED: MIDAZOLAM 2 MG/2 ML VIAL ONE (09:31)
[2018-03-17] MEDS ORDERED: fentaNYL (PF) 50 MCG/ML 2 ML AMP ONE (09:32)
[2018-03-17] MEDS ORDERED: fentaNYL (PF) 50 MCG/ML 2 ML AMP IV ONE (09:49)
[2018-03-17] MEDS ORDERED: BENZOCAINE SPRAY 1 CAN MUCOUS MEM ONE (09:49)
[2018-03-17] MEDS ORDERED: MIDAZOLAM 2 MG/2 ML VIAL IV ONE ×2 (09:50→09:57)
[2018-03-17] MEDS ORDERED: PROPOFOL 10 MG/ML 20 ML VIAL IV ONE (10:05)
--- NOTE | 2018-03-17 10:43 | ECHOT ---
TRANSESOPHAGEAL ECHOCARDIOGRAM DATE OF SERVICE: 03/17/2018. REASON FOR THE STUDY: This is a pleasant 77-year-old female patient who was diagnosed with TIA, which was recurrent. The transesophageal echocardiogram is to rule out any cardiac source of embolization. COMPLICATION: None. LEVEL OF SEDATION: Deep sedation was performed using propofol with anesthesiologist in the room. PROCEDURE DESCRIPTION: After obtaining an informed consent, explaining the procedure, benefits, risks, complications and alternatives, the patient was brought to the transesophageal echocardiogram suite. A pulse oximetry and heart rate monitors were attached to the patient prior to the procedure. The patient's throat was sprayed using lidocaine locally. Following that, the patient was turned into left lateral position. A bite guard was placed and the patient was then sedated with the above doses of Versed and fentanyl in divided doses. Following that, the transesophageal echocardiogram probe was advanced through the bite guard into the mid esophagus where 2-D echocardiogram images as well as color Doppler images of various cardiac structures were obtained. We evaluated the interatrial septum using 2-D echocardiogram, color Doppler, and contrast study. The procedure was completed. There were no complications. FINDINGS: The left ventricular dimension and systolic function appeared to be within normal limits. The right ventricle dimension and systolic function appeared to be within normal limits. Left atrium appeared to be mildly dilated. The interatrial septum appeared to be aneurysmal with evidence of mweud-eu-sozu shunt consistent with patent hickman ovale. The left atrial appendage appeared to be free from any thrombus. The aortic valve is trileaflet valve without stenosis or regurgitation. The mitral valve seems to be normal with trace MR. Normal tricuspid valve and pulmonic valve. CONCLUSION: 1. 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 2. Normal left atrial appendage without any evidence of thrombus. 3. Normal left ventricular dimension and systolic function. 4. Normal cardiac chamber sizes. 5. Normal intracardiac valves. POSTPROCEDURE MANAGEMENT: PFO closure. MMODL / IJN: [id number] /
[2018-03-17 10:46] VITALS: TEMP 98
[2018-03-17 11:18] VITALS: RESP 16
[2018-03-17 12:58] VITALS: BP 131/61; PULSE 72
== END 2018-03-17 12:59 | disposition home or self-care (01) ==
LOC: CATHCVL 07:49
PROVIDERS: ATTEND Internal Medicine Interventional Cardiology
DX: G45.9 Transient cerebral ischemic attack, unspecified (principal); I74.9 Embolism and thrombosis of unspecified artery; J45.909 Unspecified asthma, uncomplicated; E78.5 Hyperlipidemia, unspecified; E03.9 Hypothyroidism, unspecified; Q21.1 Atrial septal defect; Z79.02 Long term (current) use of antithrombotics/antiplatelets; Z79.899 Other long term (current) drug therapy; Z88.0 Allergy status to penicillin; Z86.73 Personal history of transient ischemic attack (TIA), and cerebral infarction without residual deficits; Z88.8 Allergy status to other drugs, medicaments and biological substances; Z88.4 Allergy status to anesthetic agent; Z91.041 Radiographic dye allergy status
CPT/HCPCS: 93312; 93320; 93325; J2250; J3010; J2704

== ENCOUNTER → 2018-04-18 | Outpatient (CLI) | payer MEDICARE, BC ==
[2018-04-18 17:23] LABS: HCT 40.7 % (34.0-46.0); HGB 12.9 gm/dL (11.4-16.0); Hypochromasia Slight; MCH 30.2 pg (25.0-35.0); MCHC 31.7 g/dL (31.0-37.0); MCV 95.2 fL (80.0-100.0); Mean Platelet Volume 6.5; Platelet Count 276 k/uL (150-450); RBC 4.27 m/uL (3.80-5.40); RDW 14.4 % (11.5-15.5); WBC 7.3 k/uL (3.8-10.6)
[2018-04-18 18:06] LABS: Potassium 4.9 mmol/L (3.5-5.1)
== END | disposition home or self-care (01) ==
LOC: LABPAT 16:39
PROVIDERS: ATTEND Internal Medicine Interventional Cardiology
DX: Z01.812 Encounter for preprocedural laboratory examination (principal); Q21.0 Ventricular septal defect
CPT/HCPCS: 36415; 80051; 82565; 84520; 85027

== ENCOUNTER 2018-04-27 11:07 | Inpatient (IN) | payer MEDICARE, BC ==
[2018-04-20 10:07] VITALS: BMI 32.1
[~2018-04-27 11:07] MED LIST: CLINDAMYCIN 600 MG in DEXTROSE 5% IN WATER 50 ML IVPB ONE; SODIUM CHLORIDE 0.9% 1,000 ML in EMPTY BAG 1 BAG IV ONE
[2018-04-27] MEDS: ASPIRIN 325 MG TAB PO SCH ×2 (11:30→18:36)
[2018-04-27] MEDS ORDERED: SODIUM CHLORIDE 0.9% 1,000 ML IV ONE (11:50)
[2018-04-27] MEDS ORDERED: MIDAZOLAM 2 MG/2 ML VIAL IVP ONE (14:01)
[2018-04-27] MEDS: LIDOCAINE 1% INJ 10MG/ML (20 ML MDV) SQ ONE ×2 (14:08→14:11)
[2018-04-27] MEDS ORDERED: HEPARIN SODIUM 1,000 UN/ML (10ML VL) IV ONE (14:10)
[2018-04-27] MEDS ORDERED: fentaNYL (PF) 50 MCG/ML 2 ML AMP IVP ONE (14:10)
[2018-04-27] MEDS ORDERED: IOPAMIDOL-250 50ML BTL IV ONE (14:30)
[2018-04-27] MEDS ORDERED: CLOPIDOGREL 75 MG TAB PO ONE (14:50)
--- NOTE | 2018-04-27 15:30 | CC ---
CARDIAC CATHETERIZATION REPORT DATE OF SERVICE: April 27, 2018 PERFORMING PHYSICIAN: Edison Armenta MD, coordinate measuring equipment operator. PROCEDURE PERFORMED: 1. Intracardiac echocardiogram imaging. 2. Successful percutaneous closure of patent hickman ovale using 35 mm Amplatzer PFO occluder with good results and without any residual shunt. 3. Right atrial angiogram. INDICATION: This is a pleasant 77-year-old female patient who suffered from a stroke. She underwent transesophageal echocardiogram and that revealed patent hickman ovale with [id number] shunt. COMPLICATION: None. LEVEL OF SEDATION: Moderate with sedation length of 25 minutes. APPROACH: Right common femoral vein. PROCEDURE DESCRIPTION: After obtaining an informed consent, the patient was brought to cardiac construction or leak gang laborer. The right common femoral vein was cannulated x2. I placed two 8-Armenian sheaths in the right common femoral vein. Subsequently I did start anticoagulation using heparin and the patient was given 8000 units of heparin with ACT monitoring throughout the procedure. After that I did advance the intracardiac echocardiogram probe to the right atrium where I did interrogate the heart and interrogated the interatrial septum and measured the patent hickman ovale tunnel. After that I did cross the PFO using a J-wire with multipurpose catheter. I did advance the wire to the left upper pulmonary vein. After that, I did decide to close the PFO using 35 mm Amplatzer PFO occluder. At that point, I did exchange my 11 cm L 8-Armenian sheath in the right common femoral vein into the long delivery sheath. I did exchange my J-wire into a stiff Amplatzer wire. I did exchange sheath over the Amplatzer stiff wire and the tip of the sheath was positioned in the left atrium. After that, I did advanced the Amplatzer PFO occluder through the sheath where I deployed initially the left atrial occluded and then the right atrial occluded. Before I released the device, I did interrogate again using the eyes and there was no residual shunt. The procedure was completed without any complication. After that I did exchange my long sheath into short sheath using an 0.035 wire. The procedure was completed without any complication. POSTPROCEDURE MANAGEMENT: 1. Dual anti-platelet therapy. 2. Risk factors modifications. 3. Follow up with the patient. MMODL / IJN: [id number] /
--- NOTE | 2018-04-27 15:36 | LTR ---
April 27, [address] Gabriel: Ms. Rhoda Crane underwent successful percutaneous closure of patent hickman ovale using Amplatzer device with good results and without any complication. Thank you for allowing me to participate in her care and please do not hesitate to call if you have any question or concern. MMODL / IJN: [id number] /
[2018-04-27] MEDS: BUDESONIDE 1 MG/2 ML NEBU INHALATION SCH (20:10)
[2018-04-27] MEDS ORDERED: ATORVASTATIN 40 MG TAB PO SCH (21:00)
[2018-04-28] MEDS ORDERED: LEVOTHYROXINE 75 MCG TAB PO SCH (06:30)
[2018-04-28 06:41] LABS: Basophils % (A) 0 %; Eosinophils # (A) 0.1 k/uL (0-0.7); Eosinophils % (A) 1 %; HCT 40.8 % (34.0-46.0); HGB 12.4 gm/dL (11.4-16.0); Hypochromasia Slight; Lymphocytes # (A) 1.8 k/uL (1.0-4.8); Lymphocytes % (A) 18 %; MCH 29.6 pg (25.0-35.0); MCHC 30.3 g/dL (31.0-37.0); MCV 97.7 fL (80.0-100.0); Mean Platelet Volume 6.3; Monocytes # (A) 0.5 k/uL (0-1.0); Monocytes % (A) 5 %; Neutrophils # (A) 7.4 k/uL (1.3-7.7); Neutrophils % (A) 75 %; Platelet Count 261 k/uL (150-450); RBC 4.18 m/uL (3.80-5.40); RDW 14.7 % (11.5-15.5); WBC 9.9 k/uL (3.8-10.6)
[2018-04-28 06:52] LABS: Calcium 9.1 mg/dL (8.4-10.2); Potassium 4.3 mmol/L (3.5-5.1)
[2018-04-28] MEDS ORDERED: SYMBICORT 80-4.5 MCG INHALER INHALATION SCH (08:00)
[2018-04-28] MEDS: BUDESONIDE 1 MG/2 ML NEBU INHALATION SCH (08:37)
--- NOTE | 2018-04-28 08:50 | XR ---
EXAMINATION TYPE: XR chest 2V DATE OF EXAM: 04/28/2018 COMPARISON: 12/26/2017 TECHNIQUE: PA and lateral views submitted. HISTORY: Suggestion of previous cardiac surgery correlate clinically. FINDINGS: The lungs are clear and there is no pneumothorax, pleural effusion, or focal pneumonia. Suggestion of previous cardiac surgery. Correlate clinically. Subsegmental changes at the left lung base. No pne umothorax or overt failure. IMPRESSION: 1. Left basilar atelectasis or early infiltrate with evidence of previous cardiac surgery. Correlate clinically.
[2018-04-28] MEDS ORDERED: CLOPIDOGREL 75 MG TAB PO SCH ×2 (09:00)
[2018-04-28] MEDS ORDERED: ASPIRIN 325 MG TAB PO SCH ×2 (09:00)
[2018-04-28 09:09] VITALS: BP 100/56; PULSE 64; RESP 18; TEMP 98
[2018-04-28] MEDS: ASPIRIN 325 MG TAB PO SCH (09:25)
--- NOTE | 2018-04-28 12:18 | ECHOF ---
Referral Reason:Post ASD/PFO Insertion MEASUREMENTS -------- HEIGHT: 160.0 cm WEIGHT: 83.5 kg BP: 101/56 RVIDd: 2.0 cm (< 3.3) IVSd: 0.7 cm (0.6 - 1.1) LVIDd: 3.7 cm (3.9 - 5.3) LVPWd: 0.9 cm (0.6 - 1.1) IVSs: 1.0 cm LVIDs: 2.1 cm LVPWs: 1.1 cm LAESV Index (A-L): 20.71 ml/m Ao Diam: 3.0 cm (2.0 - 3.7) AV Cusp: 1.8 cm (1.5 - 2.6) LA Diam: 2.2 cm (2.7 - 3.8) EPSS: 0.2 cm MV E Dylan: 0.92 m/s MV DecT: 251 ms MV A Dylan: 0.90 m/s MV E/A Ratio: 1.02 RAP: 5.00 mmHg RVSP: 12.41 mmHg MV EF SLOPE: 67.46 mm/s (70 - 150) MV EXCURSION: 1.41 cm (> 18.000) FINDINGS -------- Sinus rhythm. This was a technically good study. The left ventricular size is normal. Left ventricular wall thickness is normal. Overall left vent ricular systolic function is normal with, an EF between 55 - 60 %. The right ventricle is normal in size and function. Normal LA size by volume 22+/-6 ml/m2. The right atrium is normal in size. The aortic valve is trileaflet, and appears structurally normal. No aortic stenosis or regurgitation. The mitral valve leaflets are mildly thickened. Mild mitral regurgitation is present. Trace tricuspid regurgitation present. Right ventricular systolic pressure is normal at < 35 mmHg. The right ventricular systolic pressure, as measured by Doppler, is 12.41mmHg. Trace/mild (physiologic) pulmonic regurgitation. The aortic root size is normal. Normal inferior vena cava with normal inspiratory collapse consistent with estimated right atrial pre ssure of 5 mmHg. There is no pericardial effusion. CONCLUSIONS -------- 1. Sinus rhythm. 2. This was a technically good study. 3. The left ventricular size is normal. 4. Left ventricular wall thickness is normal. 5. Overall left ventricular systolic function is normal with, an EF between 55 - 60 %. 6. Normal LA size by volume 22+/-6 ml/m2. 7. The aortic valve is trileaflet, and appears structurally normal. No aortic stenosis or regurgitati on. 8. The mitral valve leaflets are mildly thickened. 9. Mild mitral regurgitation is present. 10. Trace tricuspid regurgitation present. 11. Right ventricular systolic pressure is normal at < 35 mmHg. 12. Trace/mild (physiologic) pulmonic regurgitation. 13. The aortic root size is normal. 14. There is no pericardial effusion. INSIDE SALES TRAINER: Rory Goodwin RDCS
--- NOTE | 2018-04-28 12:33 | ECHOF ---
Referral Reason:Post ASD/PFO Insertion MEASUREMENTS -------- HEIGHT: 160.0 cm WEIGHT: 83.5 kg BP: FINDINGS -------- Sinus rhythm. Pt had PFO/ASD Closure 04/27/18 Limited Echo to check device. CONCLUSIONS -------- 1. Pt had PFO/ASD Closure 04/27/18 Limited Echo to check device. WATER PLANT PUMP OPERATOR: Mendy Montague RDCS
--- NOTE | 2018-04-28 16:04 | DS ---
DISCHARGE SUMMARY DATE OF ADMISSION: 04/27/2018 DATE OF DISCHARGE: 04/28/2018 BRIEF HISTORY: This is a very pleasant 77-year-old -[place] female patient who suffered from stroke. She underwent transesophageal echocardiogram recently that revealed aneurysmal interatrial septum with evidence of patent hickman ovale and iyizl-it-gnuk shunt. The patient underwent yesterday successful percutaneous closure of patent foramen ovale using 35 mm Amplatzer PFO occluder device with good results by the end and without any residual shunt. The procedure was performed from the right groin. Her right groin today is soft and non-tender and without any bruises. The patient is going to be discharged home on dual anti-platelet therapy, and I will follow up with the patient in the office in a week from now. TONY / CHRISTINAN: [id number] /
== END 2018-04-28 13:15 | disposition home or self-care (01) | DRG 274 ==
LOC: CATHCVL 11:07 → 6SEL 15:57
PROVIDERS: ADMIT Internal Medicine Interventional Cardiology; ATTEND Internal Medicine Interventional Cardiology
PROC: B244ZZ4 Ultrasonography of Right Heart, Transesophageal (ICD-10-PCS; 2018-04-27)
PROC: 02U53JZ Supplement Atrial Septum with Synthetic Substitute, Percutaneous Approach (ICD-10-PCS; principal; 2018-04-27 13:47)
PROC: B214YZZ Fluoroscopy of Right Heart using Other Contrast (ICD-10-PCS; 2018-04-27 13:47)
DX: Q21.1 Atrial septal defect (principal); E78.5 Hyperlipidemia, unspecified; E03.9 Hypothyroidism, unspecified; Z79.02 Long term (current) use of antithrombotics/antiplatelets; Z79.890 Hormone replacement therapy; Z79.51 Long term (current) use of inhaled steroids; Z79.899 Other long term (current) drug therapy; Z86.73 Personal history of transient ischemic attack (TIA), and cerebral infarction without residual deficits; Z88.0 Allergy status to penicillin; Z88.8 Allergy status to other drugs, medicaments and biological substances
CPT/HCPCS: 71046; 80048; 85025; 86850; 86900; 86901; 93306; 93308; 93581; 93662; 94640

== ENCOUNTER → 2018-05-18 | Outpatient (CLI) | payer MEDICARE, BC ==
[2018-05-18 13:19] LABS: T4, Free (Free Thyroxine) 1.04 ng/dL (0.78-2.19)
== END | disposition home or self-care (01) ==
LOC: LABWHC1 12:12
PROVIDERS: ATTEND Internal Medicine Critical Care Medicine
DX: C73 Malignant neoplasm of thyroid gland (principal)
CPT/HCPCS: 36415; 84439; 84443

== ENCOUNTER → 2019-01-02 | Outpatient (CLI) | payer MEDICARE, BC | END | disposition home or self-care (01) | LOC: LABWHC1 12:45 | PROVIDERS: ATTEND Internal Medicine Endocrinology, Diabetes & Metabolism | DX: E03.8 Other specified hypothyroidism (principal) | CPT/HCPCS: 36415; 84443 ==

== ENCOUNTER → 2019-02-20 | Outpatient (CLI) | payer MEDICARE, BC | END | disposition home or self-care (01) | LOC: LABWHC1 12:32 | PROVIDERS: ATTEND Internal Medicine Endocrinology, Diabetes & Metabolism | DX: E03.8 Other specified hypothyroidism (principal) | CPT/HCPCS: 36415; 84443 ==

== ENCOUNTER → 2019-04-18 | Outpatient (CLI) | payer MEDICARE, BC | END | disposition home or self-care (01) | LOC: LABPAT 13:10 | PROVIDERS: ATTEND Orthopaedic Surgery | DX: Z01.812 Encounter for preprocedural laboratory examination (principal) | CPT/HCPCS: 87070 ==

== ENCOUNTER → 2019-04-20 | Outpatient (CLI) | payer MEDICARE, BC ==
--- NOTE | 2019-04-20 17:16 | XR ---
EXAMINATION TYPE: XR chest 2V DATE OF EXAM: 04/20/2019 COMPARISON: Prior chest x-ray 04/28/2018 HISTORY: Preop testing TECHNIQUE: Frontal and lateral views of the chest are obtained. FINDINGS: There is no focal air space opacity, pleural effusion, or pneumothorax seen. Some subsegme ntal atelectatic change or scarring suspected at the right lung base. The cardiac silhouette size is within normal limits. There is eventration of the right hemidiaphragm. Patient is rotated. Atrial se ptal defect repair device remains in place and is stable. The osseous structures are intact. IMPRESSION: No acute cardiopulmonary process.
== END | disposition home or self-care (01) ==
LOC: RADXRMAIN 15:39
PROVIDERS: ATTEND Family Medicine
DX: Z01.818 Encounter for other preprocedural examination (principal)
CPT/HCPCS: 71046

== ENCOUNTER 2019-05-08 13:36 | Inpatient (IN) | payer MEDICARE, BC ==
[2019-05-02 15:34] VITALS: BMI 30.8
--- NOTE | 2019-05-07 14:30 | HP ---
HISTORY AND PHYSICAL REASON FOR ADMISSION: Surgery scheduled for 05/08/2019 HISTORY OF PRESENT ILLNESS: Rhoda Crane is a 70-year-old patient seen with symptomatic left knee osteoarthritis. We discussed treatment options with her. She elected to proceed with total knee arthroplasty. Consent was obtained. Medical clearance was provided by Dr. Santiago. Cardiac clearance was provided by Dr. Armenta. PAST MEDICAL HISTORY: Asthma. PAST SURGICAL HISTORY: Knee arthroscopy. MEDICATIONS: Albuterol. ALLERGIES: PENICILLIN. SOCIAL HISTORY: She denies tobacco use. PHYSICAL EXAMINATION: Evaluation of the left knee: Range of motion 0 to 130 degrees. Tenderness medial joint line. Crepitus medial patellofemoral and patellofemoral compartments. Ligaments stable. Hip rotation without pain. Distal neurovascular exam intact. RADIOGRAPHS: Left knee radiographs revealed moderate medial moderate lateral and severe patellofemoral compartment osteoarthritis. IMPRESSION: 1. Left knee osteoarthritis. 2. Asthma. PLAN: Left total knee arthroplasty. Surgery scheduled for 05/08/2019. MMODL / IJN: [id number] /
[~2019-05-08 13:36] MED LIST changes: +ACETAMINOPHEN TAB 500 MG TAB PO ONE; -CLINDAMYCIN 600 MG in DEXTROSE 5% IN WATER 50 ML IVPB ONE; +HYDROmorphone 0.5 MG/0.5 ML SYRINGE IVP PRN; +MELOXICAM 7.5 MG TAB PO ONE; +MIDAZOLAM 2 MG/2 ML VIAL IV PRN; +ONDANSETRON 4 MG/2 ML VIAL IVP ONE; +ROPIVACAINE 246.25 MG, EPINEPHrine 0.5 MG, KETOROLAC 30 MG, cloNIDine HCL/PF 80 MCG, WA... MISCELLANE ONE; -SODIUM CHLORIDE 0.9% 1,000 ML in EMPTY BAG 1 BAG IV ONE; +TRANEXAMIC ACID 1,000 MG in SODIUM CHLORIDE 0.9% 100 ML IVPB ONE
[2019-05-08] MEDS: LACTATED RINGERS 1,000 ML IV SCH (13:56)
[2019-05-08 14:21] LABS: HCT 42.3 % (34.0-46.0); MCH 30.7 pg (25.0-35.0); MCHC 33.2 g/dL (31.0-37.0); MCV 92.4 fL (80.0-100.0); Mean Platelet Volume 6.5; Platelet Count 276 k/uL (150-450); RBC 4.58 m/uL (3.80-5.40); RDW 14.2 % (11.5-15.5); WBC 6.6 k/uL (3.8-10.6)
[2019-05-08 14:29] LABS: Glucose,Whole Blood 80 mg/dL (75-99)
[2019-05-08] MEDS ORDERED: ROPIVACAINE 0.2%-NS ON-Q PUMP 1,090 MG, EMPTY PAIN BALL 1 EACH MISCELLANE PRN (14:49)
--- NOTE | 2019-05-08 14:49 | P.ANPRN ---
Procedure Note - Anesthesia - Nerve Block Performed Left Adductor Canal Time Out Performed: Yes (14:28) Date of Procedure: 05/08/19 Procedure Start Time: : Procedure Stop Time: : Location of Patient Procedure: PreOp Indication: Acute Post-Operative Pain, Requested by Surgeon (Dr Lao) Sedation Type: Sedate with meaningful contact maintained Preparation: Sterile Prep, Sterile Dressing Position: Supine Catheter: Indwelling Needle Types: On-Q Needle Gauge: 21 Ultrasound used to visualize needle placement: Yes Ultrasound used to observe medication spread: Yes Injectate: 0.5% Ropivacaine (see comment for volume) (20cc) Blood Aspirated: No Pain Paresthesia on Injection Noted: No Resistance on Injection: Normal Image Stored and Saved: Yes Events: Uneventful and Well Tolerated
[2019-05-08] MEDS ORDERED: TRANEXAMIC ACID 1,000 MG/10 ML VIAL ONE (14:58)
[2019-05-08] MEDS ORDERED: PHENYLEPHRINE-0.9% NACL SYG 1 MG/10 ML SYRINGE ONE (14:58)
[2019-05-08] MEDS ORDERED: fentaNYL (PF) 50 MCG/ML 2 ML AMP ONE (14:58)
[2019-05-08] MEDS ORDERED: MIDAZOLAM 2 MG/2 ML VIAL ONE (14:58)
[2019-05-08] MEDS ORDERED: SODIUM CHLORIDE 0.9% 100 ML BAG ONE (14:58)
[2019-05-08] MEDS ORDERED: PROPOFOL 10 MG/ML 20 ML VIAL IV ONE (14:58)
[2019-05-08] MEDS ORDERED: ceFAZolin 3,000 MG in SODIUM CHLORIDE 0.9% IRRIGATIO 3,000 ML IRRIGATION ONE (15:03)
[2019-05-08] MEDS ORDERED: LACTATED RINGERS 1,000 ML IV ONE (16:15)
--- NOTE | 2019-05-08 17:08 | P.OP ---
Date of Procedure: 05/08/19 Preoperative Diagnosis: Left knee osteoarthritis Postoperative Diagnosis: Left knee osteoarthritis Procedure(s) Performed: Left total knee arthroplasty Implants: 1. Depuy attune size 5 narrow left cruciate retaining cemented femur 2. Depuy attune size 4 fixed bearing cemented tibial baseplate 3. Depuy attune size 5 fixed bearing cruciate retaining 6 mm polyethylene tibial insert 4. Depuy attune 38 mm all polyethylene cemented patella Anesthesia: regional (Adductor canal catheter), local, spinal Surgeon: Micah Lao Estimated Blood Loss (ml): 40 Pathology: other (Bone) Condition: stable Disposition: PACU Indications for Procedure: 78-year-old patient seen with symptomatic left knee osteoarthritis. After treatment options were discussed, she elected to proceed with total knee arthroplasty. Operative Findings: See description of procedure Description of Procedure: Patient was taken to the operative suite after having an adductor canal catheter placed by the department of anesthesia for postoperative pain management. Patient underwent a spinal anesthetic by the department of anesthesia. Patient was given preoperative IV intake antibiotics and TXA. A well-padded tourniquet was placed about the left lower extremity. The lower extremity was then prepped and draped in the normal sterile orthopedic fashion. The extremity was elevated, a tourniquet was insufflated to 300. A standard anterior incision was made sharply through skin. Dissection was taken down through the subcutaneous soft tissues down to the extensor mechanism. A medial arthrotomy was performed, patella was everted and knee was flexed. There was advanced osteoarthritis noted. I introduced my distal intramedullary femoral drill. I then introduced the distal femoral cutting jig. My assistant farm operations manager secured the cutting jig with 2 pins. I held retractors in position while my assistant farm operations manager performed the distal femoral resection through the guide area we now removed her distal femoral cutting guide. We now placed our 4-in-1 femoral cutting block and positioned and it was secured with 2 pins by my assistant farm operations manager while I held the block in position. The distal femoral finishing was now completed. A proximal tibial cutting guide was positioned. I held the guide in the appropriate position with both hands while my assistant farm operations manager inserted stabilizing pins into the guide. Proximal tibial cut was made. We now placed a trial femoral component into position, along with an appropriate size tibial tray and insert. We now took the knee through range of motion and had full extension good flexion and good overall soft tissue balance noted. The patella was everted and stabilized with 2 towel clips held by my assistant farm operations manager while I performed a flush with patellar quad tendon utilizing a fresh sawblade. We templated the patella, appropriate drill holes were made. An appropriate trial patella was positioned, knee was taken through full range of motion with the patella tracking very nicely. The trial patella was removed. Drill holes were made through the femoral component. All trial components were removed after marking off the appropriate rotation of the tibia. Retractors were now positioned along the proximal tibia. An appropriate keel punch was made with the appropriate size tibial guide by myself on my assistant farm operations manager assisted by holding retractors. At this point appropriate size implants were chosen and opened. The joint was irrigated copiously with pulse lavage mechanical irrigation. The posterior capsule was infiltrated with local analgesic. The wound was irrigated with pulse lavage mechanical irrigation. We mixed antibiotic methylmethacrylate. We placed the knee into flexion. We placed multiple retractors assisted by my assistant farm operations manager to expose the proximal tibia. Once the methyl methacrylate was ready, the tibial component was cemented into place removing any excess methylmethacrylate form by both myself and my assistant farm operations manager. The femoral component was cemented into place removing the r emoving any excess methylmethacrylate performed by both myself and my assistant farm operations manager. We then inserted the appropriate size polyethylene tibial insert. We made sure that it was locked into position. We took the knee into full extension, and then back in a flexion making sure we had removed any excess methylmethacrylate. The patellar component was then cemented down and secured with clamp. Excess m ethylmethacrylate removed. We kept the knee in full extension, patellar clamp in position until methylmethacrylate had hardened. Once it had hardened the patellar clamp was removed. The knee was taken through full range of motion. The patella tracked nicely. There was good soft tissue balancing. The tourniquet was now released. Additional hemostasis was achieved via electrocautery. A second gram of TXA was given. The wound again was irrigated with pulse lavage mechanical irrigation. The superficial soft tissues were infiltrated local analgesic. The extensor mechanism was repaired with Vicryl. We checked the repair with range of motion and it was stable. The subcutaneous soft tissues were repaired with Vicryl in layers. The skin was approximated with pernio/Dermabond. Sterile dressings were applied followed by loose web roll and Harry bandage. The patient was transferred to a bed, and taken to recovery in stable and satisfactory condition.
[2019-05-08] MEDS ORDERED: HYDROmorphone 0.5 MG/0.5 ML SYRINGE IVP PRN ×2 (17:09)
[2019-05-08] MEDS ORDERED: ONDANSETRON 4 MG/2 ML VIAL IVP PRN (17:09)
[2019-05-08] MEDS ORDERED: NALOXONE 0.4 MG/ML 1 ML VIAL IV PRN (17:09)
[2019-05-08] MEDS ORDERED: HYDROcodone/APAP 5-325MG 1 EACH TAB PO PRN (17:09)
--- NOTE | 2019-05-08 17:41 | XR ---
EXAMINATION TYPE: XR knee limited LT DATE OF EXAM: 05/08/2019 CLINICAL HISTORY: Left knee pain and arthritis status post total knee replacement. TECHNIQUE: Portable AP and crosstable lateral views of the left knee are obtained immediately postop eratively. COMPARISON: Bilateral knee x-ray March 01, 2019 FINDINGS: Metallic hardware from total left knee arthroplasty is seen and appears satisfactory in al ignment and position. There is evidence of recent surgery with diffuse subcutaneous gas and soft tis siddhartha swelling noted. IMPRESSION: METALLIC HARDWARE FROM TOTAL LEFT KNEE ARTHROPLASTY IS SATISFACTORY IN ALIGNMENT.
[2019-05-08] MEDS: SENNOSIDES-DOCUSATE SODIUM 1 EACH TAB PO SCH (23:06)
[2019-05-08] MEDS: SODIUM CHLORIDE 0.9% 1,000 ML IV SCH (23:08)
[2019-05-08] MEDS: HYDROmorphone 0.5 MG/0.5 ML SYRINGE IVP PRN (23:46)
[2019-05-09] MEDS: LACTATED RINGERS 1,000 ML IV SCH (04:27)
--- NOTE | 2019-05-09 07:05 | P.PN ---
Progress Note - Text Progress Note Date: 05/09/19 Postoperative day # 1 status post total knee arthroplasty, under spinal anesthesia, and adductor canal catheter placed for postoperative analgesia, currently at ropivacaine 0.2% 8 mL per hour and continuous infusion, visual analogue scale is 3/10, patient using oral pain medication for breakthrough pain. Assessment and plan= Acute postoperative pain, adductor canal catheter for pain control, pain is well controlled we'll continue the same management.
[2019-05-09 07:07] LABS: Basophils % (A) 1 %; Eosinophils # (A) 0.1 k/uL (0-0.7); Eosinophils % (A) 1 %; HCT 36.9 % (34.0-46.0); HGB 11.7 gm/dL (11.4-16.0); Lymphocytes # (A) 0.9 k/uL (1.0-4.8); Lymphocytes % (A) 12 %; MCHC 31.8 g/dL (31.0-37.0); MCV 94.3 fL (80.0-100.0); Mean Platelet Volume 6.7; Monocytes # (A) 0.4 k/uL (0-1.0); Monocytes % (A) 5 %; Neutrophils # (A) 5.9 k/uL (1.3-7.7); Neutrophils % (A) 79 %; Platelet Count 248 k/uL (150-450); RBC 3.92 m/uL (3.80-5.40); RDW 14.4 % (11.5-15.5); WBC 7.5 k/uL (3.8-10.6)
--- NOTE | 2019-05-09 07:28 | P.PN ---
Progress Note - Text Progress Note Date: 05/09/19 Patient seen lying in bed comfortable. She reports some discomfort in the left knee area. She has no other complaints. Incision appears stable. Negative Vidal, negative Homans. Distal neurovascular exam is intact. Impression: Status post left total knee arthroplasty Plan: DVT prophylaxis Physical therapy Medical management
[2019-05-09] MEDS: HYDROmorphone 0.5 MG/0.5 ML SYRINGE IVP PRN ×2 (09:03→19:40)
[2019-05-09] MEDS: ENOXAPARIN 30 MG/0.3 ML SYRINGE SQ SCH ×2 (09:06→22:08)
[2019-05-09] MEDS: SODIUM CHLORIDE 0.9% 1,000 ML IV SCH (09:10)
[2019-05-09] MEDS: LEVOTHYROXINE 75 MCG TAB PO SCH (10:43)
[2019-05-09] MEDS: ASPIRIN 81 MG PO SCH (10:44)
--- NOTE | 2019-05-09 12:24 | P.CONS ---
History of Present Illness - Reason for Consult Consult date: 05/09/19 Medical management - History of Present Illness This is a 78-year-old -[place] female patient of Dr. 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 Patient has been brought into the hospital under the care of Dr. Lao status post left total knee arthroplasty completed yesterday. Patient has had no postop complications. She has been afebrile, blood pressure stable, pulse ox 95% on room air. WBC is 7.5, hemoglobin 11.7. Patient is on Lovenox currently for DVT prophylaxis. Review of Systems Constitutional: Denies anorexia, Denies chills, Denies chronic pain, Denies daytime sleepiness, Denies fatigue, Denies fever, Denies poor appetite, Denies weight loss Ears, nose, mouth and throat: Denies dysphagia, Denies nasal congestion, Denies nasal discharge, Denies vertigo Cardiovascular: Denies chest pain, Denies decreased exercise tolerance, Denies dyspnea on exertion, Denies edema, Denies leg edema, Denies lightheadedness, Denies shortness of breath, Denies syncope Respiratory: Denies cough, Denies cough with sputum, Denies dyspnea, Denies excessive sputum, Denies hemoptysis, Denies home oxygen, Denies wheezing Gastrointestinal: Denies abdominal pain, Denies diarrhea, Denies loss of appetite, Denies nausea, Denies vomiting Genitourinary: Denies dysuria, Denies hematuria, Denies urgency, Denies urinary frequency Musculoskeletal: Denies frequent falls, Denies gait dysfunction, Denies muscle weakness, Denies myalgias Musculoskeletal: left: knee pain Integumentary: Reports wounds, Denies pruritus, Denies rash Neurological: Denies aphasia, Denies change in mentation, Denies confusion, Denies numbness, Denies seizures, Denies weakness Psychiatric: Denies anxiety, Denies depression Endocrine: Denies fatigue, Denies weight change Past Medical History Past Medical History: Asthma, CVA/TIA, Hyperlipidemia, Osteoarthritis (OA), Thyroid Disorder Additional Past Medical History / Comment(s): ? leaky valve,CVA-2019-no residual History of Any Multi-Drug Resistant Organisms: None Reported Past Surgical History: Hysterectomy, Orthopedic Surgery, Tonsillectomy, Tubal Ligation Additional Past Surgical History / Comment(s): Thyroid, R and L knee surgery, cataracts,"closed heart flap" Past Anesthesia/Blood Transfusion Reactions: Previous Problems w/ Anesthesia, Motion Sickness Additional Past Anesthesia/Blood Transfusion Reaction / Comm: States whole body feels like it is burning up when getting what she believes is called propofol. Past Psychological History: Anxiety Smoking Status: Never smoker Past Alcohol Use History: Occasional Additional Past Alcohol Use History / Comment(s): Patient is a lifelong nonsmoker. No alcohol use. No illicit drug use. 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 She is single. Past Drug Use History: None Reported - Past Family History Father Family Medical History: Diabetes Mellitus Additional Family Medical History / Comment(s): Father in his 60s from c oronary artery disease. Mother Family Medical History: Cancer Additional Family Medical History / Comment(s): Mother in her 50s from asthma. Brother(s) Additional Family Medical History / Comment(s): Patient has 6 brothers and sisters. One has from MS. One is alive with MS. 2 have asthma. Daughter(s) Additional Family Medical History / Comment(s): Patient has a total of 5 children. One is from diabetes complication. One living has diabetes. Medications and Allergies Home Medications Medication Instructions Recorded Confirmed Type Levothyroxine Sodium [Synthroid] 75 mcg PO QAM 12/26/17 05/08/19 History Budesonide 1 mg INHALATION RT-BID 03/14/18 05/08/19 History Aspirin 81 mg PO Q2D 05/02/19 05/08/19 History Budesonide/Formoterol Fumarate 1 puff INHALATION BID 05/02/19 05/08/19 History [Symbicort 160-4.5 Mcg Inhaler] Ergocalciferol [Vitamin D2] 50,000 unit PO Q7D 05/02/19 05/08/19 History Naproxen Sodium [Aleve] 220 mg PO BID PRN 05/02/19 05/08/19 History Allergies Allergy/AdvReac Type Severity Reaction Status Date / Time Iodinated Contrast- Oral and Allergy Anaphylaxis Verified 05/08/19 14:08 IV Dye [Iodinated Contrast Media - IV Dye] montelukast sodium Allergy Cough Verified 05/08/19 14:08 [From Singulair] Penicillins Allergy Rash/Hives Verified 05/08/19 14:08 prednisone Allergy muscle Verified 05/08/19 14:08 cramping propofol Allergy burning Verified 05/08/19 14:08 sensation in her body. azithromycin AdvReac abdominal Verified 05/08/19 14:08 cramps Physical Exam Vitals: Vital Signs Temp Pulse Resp BP Pulse Ox 05/09/19 08:00 16 05/09/19 07:36 97.5 F L 74 16 107/61 95 05/09/19 04:00 16 05/09/19 01:32 97.9 F 49 L 18 144/69 96 05/08/19 23:45 18 05/08/19 23:00 97.7 F 53 L 16 101/63 98 05/08/19 19:20 96.1 F L 51 L 16 102/64 94 L 05/08/19 18:30 64 16 102/55 96 05/08/19 18:15 68 16 105/56 99 05/08/19 18:00 63 16 102/57 98 05/08/19 17:48 72 16 102/55 92 L 05/08/19 17:30 70 16 108/56 100 05/08/19 17:15 70 16 109/59 100 05/08/19 14:45 61 16 109/61 100 05/08/19 14:14 98 F 60 16 126/67 98 Intake and Output 05/08/19 05/09/19 05/09/19 22:59 06:59 14:59 Intake Total 1501 236 Output Total 40 Balance 1461 236 Intake: IV 1251 Oral 250 236 Output: Estimated Blood Loss 40 Other: Voiding Method Toilet Toilet # Voids 1 Gen: This is a 78-year-old -[place] female. She is found resting in recliner with her legs elevated. Patient appears to be in no acute distress. HEENT: Head is atraumatic, normocephalic. Pupils equal, round. Sclerae is anicteric. Oral mucous membranes moist. NECK: Supple. No JVD. No lymphadenopathy. No thyromegaly. LUNGS: Clear to auscultation. No wheezes or rhonchi. No intercostal retractions. HEART: Regular rate and rhythm. No murmur. ABDOMEN: Soft. Bowel sounds are present. No masses. No tenderness. EXTREMITIES: No pedal edema. No calf tenderness. Dressing in place to the left knee. No breakthrough drainage or bleeding. NEUROLOGICAL: Patient is awake, alert and oriented x3. Cranial nerves 2 through 12 are grossly intact. Results CBC & Chem 7: 05/09/19 06:12 Labs: Abnormal Lab Results - Last 24 Hours (Table) 05/09/19 Range/Units 06:12 Lymphocytes # 0.9 L (1.0-4.8) k/uL Assessment and Plan Plan: 1. Osteoarthritis status post left total knee arthroplasty, postop day #1. Patient has had no postop comp occasions. Continue PT OT, pain management per orthopedics. Incentive spirometry to reduce incidence of atelectasis and hospi harrison-acquired pneumonia. Patient is on Lovenox for DVT prophylaxis. 2. Hypothyroidism. Continue levothyroxine 75 g daily. 3. Mild intermittent asthma. Continue Pulmicort twice daily. 4. DVT prophylaxis. Lovenox. 5. GI prophylaxis. Pepcid. Discharge plan: To be determined Impression and plan of care have been directed as dictated by the signing physician. Ava Gillespie nurse practitioner acting as scribe for signing physician.
[2019-05-09] MEDS: BUDESONIDE 1 MG/2 ML NEBU INHALATION SCH (20:45)
[2019-05-09] MEDS: SENNOSIDES-DOCUSATE SODIUM 1 EACH TAB PO SCH (22:08)
[2019-05-10] MEDS: HYDROcodone/APAP 10-325MG 1 EACH TAB PO PRN ×4 (02:20→17:50)
[2019-05-10] MEDS: HYDROmorphone 0.5 MG/0.5 ML SYRINGE IVP PRN (02:54)
[2019-05-10] MEDS: LEVOTHYROXINE 75 MCG TAB PO SCH (05:22)
[2019-05-10] MEDS: LACTATED RINGERS 1,000 ML IV SCH (05:23)
[2019-05-10] MEDS ORDERED: LEVOTHYROXINE 75 MCG TAB PO SCH (06:30)
--- NOTE | 2019-05-10 06:41 | P.PN ---
Progress Note - Text Anesthesia POD 2, 0 6:30. Patient is status post left TKR under spinal anesthesia with a left adductor canal catheter placed for postoperative pain relief. With ropivacaine 0.2% running at 8 cc's per hour, the patient's VAS is (4, 8). Catheter site is clean dry and intact. Patient is laying comfortably watching television so I'm not really convinced that her VAS is as high as (4, 8).
[2019-05-10] MEDS: ENOXAPARIN 30 MG/0.3 ML SYRINGE SQ SCH ×2 (07:52→21:40)
[2019-05-10] MEDS: SODIUM CHLORIDE 0.9% 1,000 ML IV SCH (09:18)
[2019-05-10] MEDS: BUDESONIDE 1 MG/2 ML NEBU INHALATION SCH ×2 (09:26→21:28)
--- NOTE | 2019-05-10 11:27 | P.PN ---
Progress Note - Text Progress Note Date: 05/10/19 Patient seen lying in bed comfortably. She states that she has been up with a walker. She still having a difficult time getting around. Her pain is fairly well controlled at this point. Incision stable. Distal neurovascular exam. Franck and Vidal negative. Impression: Status post left total knee arthroplasty Plan: DVT prophylaxis Physical therapy Medical management Probable rehab discharge tomorrow
--- NOTE | 2019-05-10 14:51 | P.PN ---
Subjective Progress Note Date: 05/10/19 This is a 78-year-old -[place] female patient of Dr. 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 Patient has been brought into the hospital under the care of Dr. Lao status post left total knee arthroplasty completed yesterday. Patient has had no postop complications. She has been afebrile, blood pressure stable, pulse ox 95% on room air. WBC is 7.5, hemoglobin 11.7. Patient is on Lovenox currently for DVT prophylaxis. 05/10: Patient is complaining of pain to the left knee. She has been working with physical therapy. Plan is for discharge to [facility] on Wednesday as patient will need to 3 nights stay. Patient has been afebrile, heart rate 82, blood pressure 131/77, pulse ox 95% on room air. Incentive spirometry 1000 mL. Objective - Vital Signs Vital signs: Vital Signs Temp 98.8 F 05/10/19 07:00 Pulse 85 05/10/19 07:00 Resp 15 05/10/19 07:00 BP 131/77 05/10/19 07:00 Pulse Ox 95 05/10/19 07:00 Intake & Output 05/09/19 05/10/19 05/10/19 18:59 06:59 18:59 Intake Total 458 Balance 458 Intake: Oral 458 Other: Voiding Method Toilet Toilet # Voids 1 1 - Exam Review of Systems Constitutional: Denies chills, Denies fever, Denies poor appetite, Denies weight loss Ears, nose, mouth and throat: Denies dysphagia, Denies nasal congestion, Denies nasal discharge, Denies vertigo Cardiovascular: Denies chest pain, Denies decreased exercise tolerance, Denies dyspnea on exertion, Denies edema, Denies leg edema, Denies lightheadedness, D enies shortness of breath, Denies syncope Respiratory: Denies cough, Denies cough with sputum, Denies dyspnea, Denies excessive sputum, Denies hemoptysis, Denies home oxygen, Denies wheezing Gastrointestinal: Denies abdominal pain, Denies diarrhea, Denies loss of appetite, Denies nausea, Denies vomiting Genitourinary: Denies dysuria, Denies hematuria, Denies urgency, Denies urinary frequency Musculoskeletal: Denies frequent falls, Denies gait dysfunction, Denies muscle weakness, Denies myalgias Musculoskeletal: left: knee pain Integumentary: Reports wounds, Denies pruritus, Denies rash Neurological: Denies aphasia, Denies change in mentation, Denies confusion, Denies numbness, Denies seizures, Denies weakness Psychiatric: Denies anxiety, Denies depression Endocrine: Denies fatigue, Denies weight change Gen: This is a 78-year-old -[place] female. She is found resting in recliner with her legs elevated. HEENT: Head is atraumatic, normocephalic. Pupils equal, round. Sclerae is anicteric. Oral mucous membranes moist. NECK: Supple. No JVD. No lymphadenopathy. No thyromegaly. LUNGS: Clear to auscultation. No wheezes or rhonchi. No intercostal retr actions. HEART: Regular rate and rhythm. No murmur. ABDOMEN: Soft. Bowel sounds are present. No masses. No tenderness. EXTREMITIES: No pedal edema. No calf tenderness. Dressing in place to the left knee. No breakthrough drainage or bleeding. NEUROLOGICAL: Patient is awake, alert and oriented x3. Cranial nerves 2 through 12 are grossly intact. - Labs CBC & Chem 7: 05/09/19 06:12 Assessment and Plan Plan: 1. Osteoarthritis status post left total knee arthroplasty, postop day #2. Patient has had no postop comp occasions. Continue PT OT, pain management per orthopedics. Incentive spirometry to reduce incidence of atelectasis and hospital-acquired pneumonia. Patient is on Lovenox for DVT prophylaxis. 2. Hypothyroidism. Continue levothyroxine 75 g daily. 3. Mild intermittent asthma. Continue Pulmicort twice daily. 4. DVT prophylaxis. Lovenox. 5. GI prophylaxis. Pepcid. Discharge plan: on Wednesday Impression and plan of care have been directed as dictated by the signing phys ician. Ava Gillespie nurse practitioner acting as scribe for signing physician.
[2019-05-10] MEDS: SENNOSIDES-DOCUSATE SODIUM 1 EACH TAB PO SCH (21:40)
[2019-05-10] MEDS: traMADol 50 MG TAB PO PRN (21:41)
[2019-05-11] MEDS: HYDROcodone/APAP 10-325MG 1 EACH TAB PO PRN ×3 (02:56→17:16)
[2019-05-11] MEDS: LEVOTHYROXINE 75 MCG TAB PO SCH (05:34)
[2019-05-11] MEDS: LACTATED RINGERS 1,000 ML IV SCH (05:35)
[2019-05-11] MEDS: SODIUM CHLORIDE 0.9% 1,000 ML IV SCH (05:35)
[2019-05-11] MEDS: ENOXAPARIN 30 MG/0.3 ML SYRINGE SQ SCH ×2 (07:55→20:46)
[2019-05-11 08:57] LABS: Basophils # (A) 0.2 k/uL (0-0.2); Basophils % (A) 2 %; Eosinophils # (A) 0.1 k/uL (0-0.7); Eosinophils % (A) 1 %; HCT 38.4 % (34.0-46.0); HGB 12.7 gm/dL (11.4-16.0); Lymphocytes # (A) 1.7 k/uL (1.0-4.8); Lymphocytes % (A) 19 %; MCH 30.9 pg (25.0-35.0); MCHC 33.2 g/dL (31.0-37.0); MCV 93.2 fL (80.0-100.0); Mean Platelet Volume 7.6; Monocytes # (A) 0.6 k/uL (0-1.0); Monocytes % (A) 7 %; Neutrophils # (A) 6.2 k/uL (1.3-7.7); Neutrophils % (A) 70 %; Platelet Count 279 k/uL (150-450); RBC 4.12 m/uL (3.80-5.40); RDW 14.3 % (11.5-15.5); WBC 8.9 k/uL (3.8-10.6)
--- NOTE | 2019-05-11 10:13 | P.PN ---
Progress Note - Text Progress Note Date: 05/11/19 Patient seen lying in bed comfortably. Her pain is well-controlled. She was told by her medical management provider that she will not be going to rehab until Wednesday. Incision stable. Homans and Vidal or negative. Distal neurovascular exam is intact. Impression: Status post left total knee arthroplasty Plan: DVT prophylaxis Physical therapy Medical management Probable transfer to rehab tomorrow as per recommendation from medicine
[2019-05-11] MEDS: ASPIRIN 81 MG PO SCH (11:08)
[2019-05-11] MEDS: BUDESONIDE 1 MG/2 ML NEBU INHALATION SCH ×2 (12:38→19:37)
--- NOTE | 2019-05-11 16:00 | P.PN ---
Subjective Progress Note Date: 05/11/19 This is a 78-year-old -[place] female patient of Dr. 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 Patient has been brought into the hospital under the care of Dr. Lao status post left total knee arthroplasty completed yesterday. Patient has had no postop complications. She has been afebrile, blood pressure stable, pulse ox 95% on room air. WBC is 7.5, hemoglobin 11.7. Patient is on Lovenox currently for DVT prophylaxis. 05/10: Patient is complaining of pain to the left knee. She has been working with physical therapy. Plan is for discharge to [facility] on Wednesday as patient will need to 3 nights stay. Patient has been afebrile, heart rate 82, blood pressure 131/77, pulse ox 95% on room air. Incentive spirometry 1000 mL. 05/11: Patient states she has some pain in her left knee after ambulating. She feels that she is getting better after each episode of ambulation. She denies any chest pain or shortness of breath. She has been afebrile, heart rate 80, blood pressure 127/76. Hemoglobin 12.7. Anticipate discharge to [facility] tomorrow. Objective - Vital Signs Vital signs: Vital Signs Temp 98.2 F 05/11/19 07:00 Pulse 80 05/11/19 07:00 Resp 16 05/11/19 08:00 BP 127/76 05/11/19 07:00 Pulse Ox 96 05/11/19 07:00 Intake & Output 05/10/19 05/11/19 05/11/19 18:59 06:59 18:59 Intake Total 240 Balance 240 Intake: Oral 240 Other: Voiding Method Toilet # Voids 2 1 1 - Exam Review of Systems Constitutional: Denies chills, Denies fever, Denies poor appetite, Denies weight loss Ears, nose, mouth and throat: Denies dysphagia, Denies nasal congestion, Denies nasal discharge, Denies vertigo Cardiovascular: Denies chest pain, Denies decreased exercise tolerance, Denies dyspnea on exertion, Denies edema, Denies leg edema, Denies lightheadedness, Denies shortness of breath, Denies syncope Respiratory: Denies cough, Denies cough with sputum, Denies dyspnea, Denies excessive sputum, Denies hemoptysis, Denies home oxygen, Denies wheezing Gastrointestinal: Denies abdominal pain, Denies diarrhea, Denies loss of appetite, Denies nausea, Denies vomiting Genitourinary: Denies dysuria, Denies hematuria, Denies urgency, Denies urinary frequency Musculoskeletal: Denies frequent falls, Denies gait dysfunction, Denies muscle weakness, Denies myalgias Musculoskeletal: left: knee pain Integumentary: Reports wounds, Denies pruritus, Denies rash Neurological: Denies aphasia, Denies change in mentation, Denies confusion, Denies numbness, Denies seizures, Denies weakness Endocrine: Denies fatigue, Denies weight change Gen: This is a 78-year-old -[place] female. She is found resting in recliner with her legs elevated and appears to be comfortable and in no acute distress. HEENT: Head is atraumatic, normocephalic. Pupils equal, round. Sclerae is anicteric. Oral mucous membranes moist. NECK: Supple. No JVD. No lymphadenopathy. No thyromegaly. LUNGS: Clear to auscultation. No wheezes or rhonchi. No intercostal retract ions. HEART: Regular rate and rhythm. No murmur. ABDOMEN: Soft. Bowel sounds are present. No masses. No tenderness. EXTREMITIES: No pedal edema. No calf tenderness. Dressing in place to the left knee. No breakthrough drainage or bleeding. NEUROLOGICAL: Patient is awake, alert and oriented x3. Cranial nerves 2 through 12 are grossly intact. - Labs CBC & Chem 7: 05/11/19 07:50 Assessment and Plan Plan: 1. Osteoarthritis status post left total knee arthroplasty, postop day #3. Patient has had no postop complications. Continue PT OT, pain management per orthopedics. Incentive spirometry to reduce incidence of atelectasis and hospital-acquired pneumonia. Patient is on Lovenox for DVT prophylaxis. 2. Hypothyroidism. Continue levothyroxine 75 g daily. 3. Mild intermittent asthma. Continue Pulmicort twice daily. 4. DVT prophylaxis. Lovenox. 5. GI prophylaxis. Pepcid. Discharge plan: on Wednesday Impression and plan of care have been directed as dictated by the signing physician. Ava Gillespie nurse practitioner acting as scribe for signing physician.
[2019-05-11] MEDS: SENNOSIDES-DOCUSATE SODIUM 1 EACH TAB PO SCH (20:46)
[2019-05-12] MEDS: HYDROcodone/APAP 10-325MG 1 EACH TAB PO PRN ×2 (01:56→08:28)
[2019-05-12] MEDS: LACTATED RINGERS 1,000 ML IV SCH (03:20)
[2019-05-12] MEDS: SODIUM CHLORIDE 0.9% 1,000 ML IV SCH (05:08)
[2019-05-12] MEDS: LEVOTHYROXINE 75 MCG TAB PO SCH (05:08)
[2019-05-12] MEDS: traMADol 50 MG TAB PO PRN (05:52)
[2019-05-12 07:44] VITALS: BP 133/79; RESP 16; TEMP 98
[2019-05-12] MEDS: ENOXAPARIN 30 MG/0.3 ML SYRINGE SQ SCH (08:27)
--- NOTE | 2019-05-12 09:12 | P.DS ---
Providers Date of admission: 05/09/19 16:10 Attending physician: Micah Lao Consults: 05/08/19 17:09 Consult Physician Routine Consulting Provider: Samina Santiago Reason/Comments: Medical management Do you want consulting provider notified?: Yes Primary care physician: Pamela Yee [facility] Course: Date of admission: 05/08/2019 Date of discharge: 05/12/2019 Admission diagnosis: Left knee osteoarthritis Discharge diagnosis: Left total knee arthroplasty Attending physician: Micah Lao DO Surgical procedure: Left total knee arthroplasty Brief history: Patient is a 78-year-old female with a history of symptomatic left knee osteoarthritis.. At this point patient has failed outpatient conservative treatment measures and has opted to proceed with an elective left total knee arthroplasty.. Hospital course: Details the patient surgery can be found in the operative report. Patient tolerated the procedure well and was subsequently transported to orthopedic floor. Patient orthopedic and medical care was provided daily. Patient had daily laboratory tests performed for evaluation of overall blood counts. Patient had daily physical therapy to include strengthening, range of motion as well as education with walker ambulation. Patient had daily physical therapy. Patient was treated with Lovenox for the postoperative DVT prophylaxis during there inpatient stay. Patient noted to have a relatively uneventful postoperative course. Patient reported satisfactory pain control with oral pain medication by postoperative day 4. Patient showed satisfactory progress with physical therapy. Patient removed steadily through the program and had no difficulty meeting goals by postop day 4. Given patient's otherwise satisfactory course and having met physical therapy goals, plan is to discharge patient to rehab on postoperative day 4. Discharge condition/disposition: Patient discharged to rehab in stable and satisfactory condition. Discharge medications: Patient is prescribed home medications per medicine as well as appropriate oral analgesics and anticoagulants. Discharge instructions: 1. Wound care and infectious precautions, keep incision dry and covered while showering, no lotions, creams, moisturized. No soaking, tubs, pools, hot tubs. Do not scrub over the incision 2. Weight-bear as tolerated with walker/cane until follow-up 3. Ice and elevate when necessary. Do not exceed 20 minutes per hour with ice pack. 4. Utilize compression sleeve until seen first postoperative appointment. 5. Visiting nursing care 6. Home physical therapy including home CPM. 7. Pain meds and anticoagulations per prescription 8. Pain medication has potential to cause constipation. Increase oral fluid and fiber intake. Contact primary care provider if you have not had a bowel movement within 48 hours after discharge. 9. No anti-inflammatory medication until discussed the first postoperative visit, this includes Motrin, Aleve, Mobic, diclofenac. 10. Follow-up in [facility] in 2 weeks with Zafar Stratton PA-C 11. Follow up with your primary care doctor 7-10 days after discharge. 12. Contact advanced [facility] with any questions, Patient Condition at Discharge: Good Plan - Discharge Summary Discharge Rx Participant: No New Discharge Prescriptions: New Aspirin [Adult Low Dose Aspirin EC] 81 mg PO BID #60 tablet. Docusate [Colace] 100 mg PO DAILY #30 capsule HYDROcodone/APAP 7.5-325MG [[place] 7.5-325] 1 - 2 each PO Q6HR PRN #56 tab PRN Reason: Pain traMADol HCL [Ultram] 50 mg PO Q6HR PRN 7 Days #28 tab PRN Reason: Pain No Action Levothyroxine Sodium [Synthroid] 75 mcg PO QAM Budesonide 1 mg INHALATION RT-BID Naproxen Sodium [Aleve] 220 mg PO BID PRN PRN Reason: Pain Ergocalciferol [Vitamin D2] 50,000 unit PO Q7D Aspirin 81 mg PO Q2D Budesonide/Formoterol Fumarate [Symbicort 160-4.5 Mcg Inhaler] 1 puff INHALATION BID Discharge Medication List Levothyroxine Sodium [Synthroid] 75 mcg PO QAM 12/26/17 [History] Budesonide 1 mg INHALATION RT-BID 03/14/18 [History] Aspirin 81 mg PO Q2D 05/02/19 [History] Budesonide/Formoterol Fumarate [Symbicort 160-4.5 Mcg Inhaler] 1 puff INHALATION BID 05/02/19 [History] Ergocalciferol [Vitamin D2] 50,000 unit PO Q7D 05/02/19 [History] Naproxen Sodium [Aleve] 220 mg PO BID PRN 05/02/19 [History] Aspirin [Adult Low Dose Aspirin EC] 81 mg PO BID #60 tablet. 05/12/19 [Rx] Docusate [Colace] 100 mg PO DAILY #30 capsule 09/13/19 [Rx] HYDROcodone/APAP 7.5-325MG [[place] 7.5-325] 1 - 2 each PO Q6HR PRN #56 tab 05/12/19 [Rx] traMADol HCL [Ultram] 50 mg PO Q6HR PRN 7 Days #28 tab 05/12/19 [Rx] Follow up Appointment(s)/Referral(s): Samina Santiago MD [STAFF PHYSICIAN] - 1 Week Chang Stratton PAC [PHYSICIAN INTERNATIONAL LOGISTICS ANALYST] - 05/24/19 1:50 pm Activity/Diet/Wound Care/Special Instructions: Orthopedic discharge instructions: 1. Wound care infection precautions keep incision dry and covered while showering, no lotions, creams, moisturizers. No soaking, pools, hot tubs. Do not scrub over incision. 2. Weight-bear [as tolerated] with walker/cane until follow-up 3. Ice and elevate when necessary. Do not exceed 20 minutes per hour with ice pack. 4. Utilize compression sleeve until seen at first follow-up appointment. 5. Pain meds and anticoagulation per prescription. 6. Pain medication is potential to cause constipation. Increase oral fluids and fiber. Contact primary care provider. Has not had a bowel movement within 48 hours of discharge. 7. No anti-inflammatory medication and discussed at first postop visit, this includes Motrin, Aleve, Mobic, diclofenac. 8. Follow up in office at 2 weeks postoperatively with Zafar Stratton PA-C 9. Follow-up with primary care doctor within 7-10 days after discharge. 10. Contact [facility] with any questions, Discharge Disposition: TRANSFER TO SNF/ECF
[2019-05-12] MEDS: BUDESONIDE 1 MG/2 ML NEBU INHALATION SCH (09:19)
[2019-05-12 09:29] VITALS: PULSE 76
--- NOTE | 2019-05-12 15:07 | P.PN ---
Subjective Progress Note Date: 05/12/19 This is a 78-year-old -[place] female patient of Dr. 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 Patient has been brought into the hospital under the care of Dr. Lao status post left total knee arthroplasty completed yesterday. Patient has had no postop complications. She has been afebrile, blood pressure stable, pulse ox 95% on room air. WBC is 7.5, hemoglobin 11.7. Patient is on Lovenox currently for DVT prophylaxis. 05/10: Patient is complaining of pain to the left knee. She has been working with physical therapy. Plan is for discharge to [facility] on Wednesday as patient will need to 3 nights stay. Patient has been afebrile, heart rate 82, blood pressure 131/77, pulse ox 95% on room air. Incentive spirometry 1000 mL. 05/11: Patient states she has some pain in her left knee after ambulating. She feels that she is getting better after each episode of ambulation. She denies any chest pain or shortness of breath. She has been afebrile, heart rate 80, blood pressure 127/76. Hemoglobin 12.7. Anticipate discharge to [facility] tomorrow. 05/12: Patient has been afebrile, heart rate in the 70s and 80s, blood pressure 133/79, pulse ox 97% on room air. Patient's pain is well controlled today. Plan is for discharge to [facility] under the care of Dr. Valles. Objective - Vital Signs Vital signs: Vital Signs Temp 98.0 F 05/12/19 07:00 Pulse 86 05/12/19 07:00 Resp 16 05/12/19 07:00 BP 133/79 05/12/19 07:00 Pulse Ox 97 05/12/19 07:00 Intake & Output 05/11/19 05/12/19 05/12/19 18:59 06:59 18:59 Intake Total 240 540 Output Total 3 Balance 237 540 Intake: Oral 240 540 Output: Urine 3 Other: Voiding Method Toilet # Voids 1 1 - Exam Review of Systems Constitutional: Denies chills, Denies fever, Denies poor appetite, Denies weight loss Ears, nose, mouth and throat: Denies dysphagia, Denies nasal congestion, Denies nasal discharge, Denies vertigo Cardiovascular: Denies chest pain, Denies decreased exercise tolerance, Denies dyspnea on exertion, Denies edema, Denies leg edema, Denies lightheadedness, Denies shortness of breath, Denies syncope Respiratory: Denies cough, Denies cough with sputum, Denies dyspnea, Denies excessive sputum, Denies hemoptysis, Denies home oxygen, Denies wheezing Gastrointestinal: Denies abdominal pain, Denies diarrhea, Denies loss of appetite, Denies nausea, Denies vomiting Genitourinary: Denies dysuria, Denies hematuria, Denies urgency, Denies urinary frequency Musculoskeletal: Denies frequent falls, Denies gait dysfunction, Denies muscle weakness, Denies myalgias Musculoskeletal: left: knee pain-improving Integumentary: Reports wounds, Denies pruritus, Denies rash Neurological: Denies aphasia, Denies change in mentation, Denies confusion, Denies numbness, Denies seizures, Denies weakness Endocrine: Denies fatigue, Denies weight change Gen: This is a 78-year-old -[place] female. She appears to be comfortable and in no acute distress. HEENT: Head is atraumatic, normocephalic. Pupils equal, round. Sclerae is anicteric. Oral mucous membranes moist. NECK: Supple. No JVD. No lymphadenopathy. No thyromegaly. LUNGS: Clear to auscultation. No wheezes or rhonchi. No intercostal retractions. HEART: Regular rate and rhythm. No murmur. ABDOMEN: Soft. Bowel sounds are present. No masses. No tenderness. EXTREMITIES: No pedal edema. No calf tenderness. Dressing in place to the left knee. No breakthrough drainage or bleeding. NEUROLOGICAL: Patient is awake, alert and oriented x3. Cranial nerves 2 through 12 are grossly intact. - Labs CBC & Chem 7: 05/11/19 07:50 Assessment and Plan Plan: 1. Osteoarthritis status post left total knee arthroplasty, postop day #4. P atient has had no postop complications. Continue PT OT, pain management per orthopedics. Incentive spirometry to reduce incidence of atelectasis and hospital-acquired pneumonia. Patient is on Lovenox for DVT prophylaxis. 2. Hypothyroidism. Continue levothyroxine 75 g daily. 3. Mild intermittent asthma. Continue Pulmicort twice daily. 4. DVT prophylaxis. Lovenox. Transition to aspirin twice daily. 5. GI prophylaxis. Pepcid. Discharge plan: on Wednesday under the care of Dr. Valles Impression and plan of care have been directed as dictated by the signing physician. Ava Gillespie nurse practitioner acting as scribe for signing physician.
== END 2019-05-12 12:17 | DRG 470 ==
LOC: OR 13:36 → 4SSUR 18:30 → OR 05-09 09:35 → 4SSUR 05-09 16:10
PROVIDERS: ADMIT Orthopaedic Surgery; ATTEND Orthopaedic Surgery
PROC: 0SRD0J9 Replacement of Left Knee Joint with Synthetic Substitute, Cemented, Open Approach (ICD-10-PCS; principal; 2019-05-08 15:15)
DX: M17.12 Unilateral primary osteoarthritis, left knee (principal); E03.9 Hypothyroidism, unspecified; G89.18 Other acute postprocedural pain; E78.5 Hyperlipidemia, unspecified; J45.20 Mild intermittent asthma, uncomplicated; R73.03 Prediabetes; Z79.82 Long term (current) use of aspirin; Z79.890 Hormone replacement therapy; Z79.51 Long term (current) use of inhaled steroids; Z79.899 Other long term (current) drug therapy; Z90.710 Acquired absence of both cervix and uterus; Z98.51 Tubal ligation status; Z86.73 Personal history of transient ischemic attack (TIA), and cerebral infarction without residual deficits; Z98.890 Other specified postprocedural states; Z86.59 Personal history of other mental and behavioral disorders; Z98.42 Cataract extraction status, left eye; Z98.41 Cataract extraction status, right eye; Z88.0 Allergy status to penicillin; Z88.8 Allergy status to other drugs, medicaments and biological substances; Z88.4 Allergy status to anesthetic agent; Z88.1 Allergy status to other antibiotic agents; Z91.041 Radiographic dye allergy status; Z83.3 Family history of diabetes mellitus; Z82.49 Family history of ischemic heart disease and other diseases of the circulatory system; Z82.5 Family history of asthma and other chronic lower respiratory diseases; Z80.9 Family history of malignant neoplasm, unspecified
CPT/HCPCS: 85025; 85027; 88300; 94640

== ENCOUNTER 2020-01-28 18:52 | Emergency (ER) | payer OTHER, MEDICARE, BC ==
[2020-01-28] MEDS ORDERED: IBUPROFEN 600 MG TAB PO STA (19:15)
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
[2020-01-28 20:32] LABS: Basophils # (A) 0.1 k/uL (0-0.2); Basophils % (A) 1 %; Eosinophils # (A) 0.3 k/uL (0-0.7); Eosinophils % (A) 4 %; HCT 41.7 % (34.0-46.0); HGB 13.6 gm/dL (11.4-16.0); Lymphocytes # (A) 1.9 k/uL (1.0-4.8); Lymphocytes % (A) 26 %; MCH 31.6 pg (25.0-35.0); MCHC 32.7 g/dL (31.0-37.0); MCV 96.8 fL (80.0-100.0); Monocytes # (A) 0.3 k/uL (0-1.0); Monocytes % (A) 4 %; Neutrophils # (A) 4.6 k/uL (1.3-7.7); Neutrophils % (A) 63 %; Platelet Count 291 k/uL (150-450); RBC 4.31 m/uL (3.80-5.40); RDW 13.7 % (11.5-15.5); WBC 7.3 k/uL (3.8-10.6)
[2020-01-28 20:46] LABS: Partial Thromboplastin Time 24.5 sec (22.0-30.0); Prothrombin Time 10.2 sec (9.0-12.0)
[2020-01-28 20:50] LABS: Calcium 9.4 mg/dL (8.4-10.2); Total Bilirubin 0.4 mg/dL (0.2-1.3); Total Protein 6.8 g/dL (6.3-8.2)
[2020-01-28 20:54] LABS: Potassium 5.2 mmol/L (3.5-5.1)
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
[2020-01-28] MEDS ORDERED: ACETAMINOPHEN TAB 325 MG TAB PO STA (22:05)
[2020-01-28] MEDS ORDERED: ACET/COD 300 MG/30 MG STARTER PACK 6 TAB BTL PO STA (22:08)
[2020-01-28 22:17] VITALS: BP 145/85; PULSE 63; RESP 19; TEMP 97.1
== END 2020-01-28 22:17 | disposition home or self-care (01) ==
LOC: EC 18:52
DX: R07.89 Other chest pain (principal); R74.0 Nonspecific elevation of levels of transaminase and lactic acid dehydrogenase [LDH]; Z91.041 Radiographic dye allergy status; Z88.0 Allergy status to penicillin; Z88.1 Allergy status to other antibiotic agents; Z88.8 Allergy status to other drugs, medicaments and biological substances; V49.40XA Driver injured in collision with unspecified motor vehicles in traffic accident, initial encounter; Y92.410 Unspecified street and highway as the place of occurrence of the external cause
CPT/HCPCS: 36415; 71250; 80053; 84484; 85025; 85610; 85730; 99285

== ENCOUNTER → 2021-04-07 | Outpatient (CLI) | payer MEDICARE, BC ==
--- NOTE | 2021-04-07 17:03 | US ---
EXAMINATION TYPE: US venous doppler duplex LE LT DATE OF EXAM: 04/07/2021 4:42 PM COMPARISON: NONE CLINICAL HISTORY: 80-year-old female I80.9 PHLEBITIS AND THROMBOPHLEBITIS OF SITE. Left knee and calf pain SIDE PERFORMED: Left TECHNIQUE: The lower extremity deep venous system is examined utilizing real time linear array sonog fanny with graded compression, doppler sonography and color-flow sonography. FINDINGS: VESSELS IMAGED: Common Femoral Vein Deep Femoral Vein Greater Saphenous Vein * Femoral Vein Popliteal Vein Small Saphenous Vein * Proximal Calf Veins (* superficial vessels) Left Leg: Appears negative for DVT IMPRESSION: No evidence for DVT within the left lower extremity imaged from the groin to the upper calf.
== END | disposition home or self-care (01) ==
LOC: RADUSWWP 16:23
PROVIDERS: ATTEND Orthopaedic Surgery
DX: I80.9 Phlebitis and thrombophlebitis of unspecified site (principal)

== ENCOUNTER → 2021-04-21 | Outpatient (CLI) | payer BC, MEDICARE, OTHER ==
--- NOTE | 2021-04-21 15:56 | NM ---
EXAMINATION TYPE: NM bone scan whole body DATE OF EXAM: 04/21/2021 COMPARISON: NONE HISTORY: Pain Delayed whole-body scanning was performed following the injection of 22.8 mCi Tc 99m MDP. Images acq uired 3 hours post injection. FINDINGS: Photopenic defect involving the left knee compatible with previous surgery. Abnormal uptake involving the shoulders, sternoclavicular joints, wrists, right knee, bilateral feet greater on the right suggestive of arthritic changes. Nonspecific mild to moderate uptake seen throughout the thoracic, lower cervical and lower lumbar spi ne likely degenerative. IMPRESSION: 1. Nonspecific uptake throughout the vertebral column likely degenerative. 2. Correlate for previous left knee surgery. There is increased uptake surrounding the prostheses. Th is could be postsurgical. If there is concern for infection or loosening correlate with triple phase bone scan.
== END | disposition home or self-care (01) ==
LOC: RADNMMAIN 11:06
PROVIDERS: ATTEND Orthopaedic Surgery
DX: R94.8 Abnormal results of function studies of other organs and systems (principal)
CPT/HCPCS: 78306; A9503

== ENCOUNTER → 2021-07-01 | Outpatient (CLI) | payer OTHER | END | disposition home or self-care (01) | LOC: LABWHC1 13:08 | PROVIDERS: ATTEND Orthopaedic Surgery | DX: M25.562 Pain in left knee (principal); Z96.652 Presence of left artificial knee joint | CPT/HCPCS: 36415; 85379; 85652; 86140 ==

== ENCOUNTER → 2021-07-10 | Outpatient (CLI) | payer BC, MEDICARE, OTHER ==
--- NOTE | 2021-07-10 13:52 | NM ---
EXAMINATION TYPE: NM bone 3 phase DATE OF EXAM: 07/10/2021 COMPARISON: NONE HISTORY: Pain left knee Triple phase bone scintigraphy was performed following the injection of 22.8 mCi Tc 99m MDP. Immedia te images and 5 hours post injection images acquired. FINDINGS: There is to be slightly increased perfusion to the left knee. There is soft tissue uptake bilaterally with photopenic defects suggestive of previous left knee arth roplasty. Arthropathy of the right knee. Delayed imaging demonstrates increased uptake surrounding th e prostheses. IMPRESSION: Loosening or infection in the differential diagnosis correlation with tagged WBC study recommended.
== END | disposition home or self-care (01) ==
LOC: RADNMMAIN 07:31
PROVIDERS: ATTEND Orthopaedic Surgery
DX: M25.562 Pain in left knee (principal)
CPT/HCPCS: 78315; A9503

== ENCOUNTER → 2021-11-03 | Outpatient (CLI) | payer OTHER ==
--- NOTE | 2021-11-03 14:07 | US ---
EXAMINATION TYPE: US venous doppler duplex LE LT DATE OF EXAM: 11/03/2021 1:17 PM COMPARISON: NONE CLINICAL HISTORY: I80.9 PHLEBITIS AND THROMBOPHLEBITIS OF UNSPECIFIE. Knee pain. No swelling. Not on blood thinners. SIDE PERFORMED: Left TECHNIQUE: The lower extremity deep venous system is examined utilizing real time linear array sonog fanny with graded compression, doppler sonography and color-flow sonography. VESSELS IMAGED: Common Femoral Vein Deep Femoral Vein Greater Saphenous Vein * Femoral Vein Popliteal Vein Small Saphenous Vein * Proximal Calf Veins (* superficial vessels) There is normal flow, compressibility, vascular waveforms. Left Leg: Negative for DVT IMPRESSION: Evident deep venous thrombosis within the left lower extremity from the level the knee ce ntrally
== END | disposition home or self-care (01) ==
LOC: RADUSWWP 12:57
PROVIDERS: ATTEND Orthopaedic Surgery
DX: I82.4Z2 Acute embolism and thrombosis of unspecified deep veins of left distal lower extremity (principal)

== ENCOUNTER → 2021-12-10 | Outpatient (CLI) | payer MEDICARE, BC ==
[2021-12-11 14:46] LABS: Alt. alternata IgE Class CLASS 0; Alternaria alternata IgE <0.10 kU/L (<0.10); Asperg. fumagatus IgE <0.10 kU/L (<0.10); Asperg. fumagatus IgE Class CLASS 0; Bermuda Grass IgE <0.10 kU/L (<0.10); Birch(Com.Silvr) IgE <0.10 kU/L (<0.10); Birch(Com.Silvr) IgE Class CLASS 0; Cat Epith & Dander IgE <0.10 kU/L (<0.10); Cat Epith & Dander IgE Class CLASS 0; Clad herbarum IgE <0.10 kU/L (<0.10); Clad herbarum IgE Class CLASS 0; Cockroach IgE <0.10 kU/L (<0.10); Cottonwood IgE <0.10 kU/L (<0.10); Dermato. Pteronyssinus Class CLASS 0; Dermato. Pteronyssinus IgE <0.10 kU/L (<0.10); Dermato. farinae IgE <0.10 kU/L (<0.10); Dermato. farinae IgE Class CLASS 0; Dog Dander IgE <0.10 kU/L (<0.10); Elm IgE <0.10 kU/L (<0.10); IgE (Allergen) 30.4 IU/mL (<114.0); Maple (Box Elder) IgE <0.10 kU/L (<0.10); Maple (Box Elder) IgE Class CLASS 0; Mountain Cedar IgE <0.10 kU/L (<0.10); Mountain Cedar IgE Class CLASS 0; Mouse Urine IgE Class CLASS 0; Mouse Urine Proteins,IgE <0.10 kU/L (<0.10); Nettle IgE <0.10 kU/L (<0.10); Nettle IgE Class CLASS 0; Oak IgE <0.10 kU/L (<0.10); Penicillium chrysogenum IgE <0.10 kU/L (<0.10); Penicillium chrysogenum IgE Cl CLASS 0; Rough Marshelder IgE <0.10 kU/L (<0.10); Rough Marshelder IgE Class CLASS 0; Timothy Grass IgE <0.10 kU/L (<0.10); Timothy Grass IgE Class CLASS 0; White Ash IgE Class CLASS 0
== END | disposition home or self-care (01) ==
LOC: LABWHC1 12:23
PROVIDERS: ATTEND Internal Medicine Critical Care Medicine
DX: J45.40 Moderate persistent asthma, uncomplicated (principal)
CPT/HCPCS: 36415; 82785; 85008; 86003

== ENCOUNTER 2022-01-25 13:05 | Emergency (ER) | payer MEDICARE, BC ==
[2022-01-25 14:33] VITALS: TEMP 97.7
[2022-01-25] MEDS ORDERED: IPRATROPIUM-ALBUTEROL 3 ML NEB INHALATION STA ×2 (14:52→15:54)
[2022-01-25] MEDS ORDERED: cefTRIAXone 1,000 MG VIAL (IM USE) IM STA (14:52)
--- NOTE | 2022-01-25 14:55 | ED ---
General Adult HPI - General Source: patient, family, RN notes reviewed Mode of arrival: ambulatory Limitations: no limitations <Tyree Small - Last Filed: 01/25/22 15:40> <Elisha Deutsch - Last Filed: 01/25/22 17:15> - General Chief complaint: Shortness of Breath Stated complaint: asthma, SOB & body cramps Time Seen by Provider: 01/25/22 14:36 - History of Present Illness Initial comments: Patient is a pleasant 81-year-old female presenting to the emergency Department with several complaints. Patient does feel short of breath with history of asthma. Jevon guerrero saw her doctor beginning of the month and was taking steroids. Patient has been somewhat fatigued and achy since that time. They do question side effects of steroids. Patient's breathing has worsened over the past couple of days. Patient saw her doctor and was recently diagnosed with urinary tract infection. Prescription just called a couple days ago however patient is not picked it up because she felt fatigued. (Tyree Small) - Related Data Home Medications Medication Instructions Recorded Confirmed Levothyroxine Sodium [Synthroid] 75 mcg PO QAM 12/26/17 05/09/19 Budesonide 1 mg INHALATION RT-BID 03/14/18 05/09/19 Budesonide/Formoterol Fumarate 1 puff INHALATION BID 05/02/19 05/09/19 [Symbicort 160-4.5 Mcg Inhaler] Ergocalciferol [Vitamin D2 50,000 unit PO Q7D 05/02/19 05/09/19 (DRISDOL)] Previous Rx's Medication Instructions Recorded Aspirin [Adult Low Dose Aspirin EC] 81 mg PO BID #60 tablet.dr 05/12/19 Docusate [Colace] 100 mg PO DAILY #30 capsule 05/12/19 HYDROcodone/APAP 7.5-325MG [Geraldine 1 - 2 each PO Q6HR PRN #56 tab 05/12/19 7.5-325] traMADol HCL [Ultram] 50 mg PO Q6HR PRN 7 Days #28 tab 05/12/19 Ipratropium-Albuterol Nebulize 3 ml INHALATION Q6HR PRN #90 ml 01/25/22 [Duoneb 0.5 mg-3 mg/3 ml Soln] Allergies Allergy/AdvReac Type Severity Reaction Status Date / Time Iodinated Contrast Media Allergy Anaphylaxis Verified 01/25/22 14:33 [Iodinated Contrast Media - IV Dye] montelukast sodium Allergy Cough Verified 01/25/22 14:33 [From Singulair] Penicillins Allergy Rash/Hives Verified 01/25/22 14:33 prednisone Allergy muscle Verified 01/25/22 14:33 cramping propofol Allergy burning Verified 01/25/22 14:33 sensation in her body. azithromycin AdvReac abdominal Verified 01/25/22 14:33 cramps Review of Systems ROS Other: All systems not noted in ROS Statement are negative. Constitutional: Reports: chills. Denies: fever Eyes: Denies: eye pain ENT: Denies: ear pain Respiratory: Reports: cough (Productive yellow sputum), dyspnea Cardiovascular: Denies: chest pain Endocrine: Denies: fatigue Gastrointestinal: Denies: abdominal pain Genitourinary: Reports: as per HPI Skin: Denies: rash Neurological: Denies: weakness <Tyree Small - Last Filed: 01/25/22 15:40> ROS Other: All systems not noted in ROS Statement are negative. <Elisha Deutsch - Last Filed: 01/25/22 17:15> ROS Statement: Those systems with pertinent positive or pertinent negative responses have been documented in the HPI. Past Medical History Past Medical History: Asthma, CVA/TIA, Hyperlipidemia, Osteoarthritis (OA), Thyroid Disorder Additional Past Medical History / Comment(s): States irreg h/r, ? leaky valve History of Any Multi-Drug Resistant Organisms: None Reported Past Surgical History: Hysterectomy, Orthopedic Surgery, Tonsillectomy, Tubal Ligation Additional Past Surgical History / Comment(s): Thyroid, R and L knee surgery, cataracts. Past Anesthesia/Blood Transfusion Reactions: Previous Problems w/ Anesthesia Additional Past Anesthesia/Blood Transfusion Reaction / Comment(s): States whole body feels like it is burning up when getting what she believes is called propofol. Past Psychological History: No Psychological Hx Reported Smoking Status: Never smoker Past Alcohol Use History: Rare Past Drug Use History: None Reported - Past Family History Father Family Medical History: Diabetes Mellitus Additional Family Medical History / Comment(s): Father in his 60s from coronary artery disease. Mother Family Medical History: Cancer Additional Family Medical History / Comment(s): Mother in her 50s from asthma. Brother(s) Additional Family Medical History / Comment(s): Patient has 6 brothers and sisters. One has from MS. One is alive with MS. 2 have asthma. Daughter(s) Additional Family Medical History / Comment(s): Patient has a total of 5 children. One is from diabetes complication. One living has diabetes. <Tyree Small - Last Filed: 01/25/22 15:40> General Exam Limitations: no limitations General appearance: alert, in no apparent distress Head exam: Present: normocephalic Eye exam: Present: normal appearance Neck exam: Present: normal inspection Respiratory exam: Present: wheezes Cardiovascular Exam: Present: regular rate, normal rhythm GI/Abdominal exam: Present: soft. Absent: tenderness Extremities exam: Present: normal inspection. Absent: pedal edema, calf tenderness Neurological exam: Present: alert Psychiatric exam: Present: normal affect, normal mood Skin exam: Present: normal color <Tyree Small - Last Filed: 01/25/22 15:40> Course <Tyree Small - Last Filed: 01/25/22 15:40> Vital Signs 01/25/22 01/25/22 01/25/22 14:27 15:33 15:39 Temperature 97.7 F Pulse Rate 68 68 Respiratory 20 18 Rate Blood Pressure 155/78 O2 Sat by Pulse 99 Oximetry 01/25/22 01/25/22 15:54 16:25 Temperature Pulse Rate 72 68 Respiratory Rate Blood Pressure O2 Sat by Pulse Oximetry - Reevaluation(s) Reevaluation #1: 01/25/22 14:55 Patient has untreated urinary tract infection. Patient will be given injection of Rocephin for this as they do not feel the pharmacy is open today or tomorrow. Previous penicillin reaction was rash. Some of patient's symptoms could likely be related to untreated urinary tract infection. Patient will be reevaluated following advise her treatment. Patient has had 2 negative COVID-19 tests recently. Patient does not want another one. (Tyree Small) Medical Decision Making - Radiology Data Radiology results: image reviewed (Chest x-ray shows subsegmental atelectasis without other acute process. No significant change.) <Tyree Small - Last Filed: 01/25/22 15:40> <Elisha Deutsch - Last Filed: 01/25/22 17:15> - Medical Decision Making Patient care was signed out to me by Dr. Small at 4 PM, patient received a single breathing treatment reported feeling only mildly better, as an outpatient was receiving a DuoNeb. After DuoNeb patient reported feeling much better requesting to be discharged home with prescription for DuoNeb's. (Elisha Deutsch) Disposition <Tyree Small - Last Filed: 01/25/22 15:40> Is patient prescribed a controlled substance at d/c from ED?: No <Elisha Deutsch - Last Filed: 01/25/22 17:15> Clinical Impression: Asthma Disposition: HOME SELF-CARE Condition: Stable Instructions (If sedation given, give patient instructions): Asthma (ED) Prescriptions: Ipratropium-Albuterol Nebulize [Duoneb 0.5 mg-3 mg/3 ml Soln] 3 ml INHALATION Q6HR PRN #90 ml PRN Reason: Wheezing Referrals: Samina Santiago MD [Primary Care Provider] - 1-2 days
--- NOTE | 2022-01-25 15:37 | XR ---
EXAMINATION TYPE: XR chest 2V DATE OF EXAM: 01/25/2022 COMPARISON: 05/28/2021 HISTORY: Short of breath TECHNIQUE: 2 views FINDINGS: Heart is normal. There is mild subsegmental atelectasis left lung base. There are no hilar masses. The other lung barton are clear. Bony thorax is intact. IMPRESSION: Subsegmental atelectasis left lung base without much change. Normal heart. No heart failu re.
[2022-01-25 16:12] VITALS: RESP 18
[2022-01-25 16:31] VITALS: PULSE 68
[2022-01-25 17:36] VITALS: BP 142/78
== END 2022-01-25 17:36 | disposition home or self-care (01) ==
LOC: EC 13:05
DX: J45.909 Unspecified asthma, uncomplicated (principal); E78.5 Hyperlipidemia, unspecified; E07.9 Disorder of thyroid, unspecified; Z79.1 Long term (current) use of non-steroidal anti-inflammatories (NSAID); Z88.0 Allergy status to penicillin; Z88.8 Allergy status to other drugs, medicaments and biological substances; Z88.4 Allergy status to anesthetic agent; Z88.1 Allergy status to other antibiotic agents
CPT/HCPCS: 94640 ×2; 71046; 99284; J0696

== ENCOUNTER → 2022-02-03 | Outpatient (CLI) | payer MEDICARE, BC ==
--- NOTE | 2022-02-03 14:51 | NM ---
EXAMINATION TYPE: NM pul vent and perfuse DATE OF EXAM: 02/03/2022 COMPARISON: Chest x-ray 02/03/2022 HISTORY: Shortness of breath TECHNIQUE: Utilizing inhalation of 37.8 mCi Tc 99m DTPA aerosol and intravenous injection of 4.84 mC i of Tc 99m MAA, ventilation and perfusion images are acquired post injection in multiple projections . FINDINGS: There is a triple match at the right lung base. No sizable mismatch perfusion ventilation defects are seen. IMPRESSION: Intermediate probability for pulmonary embolism.
--- NOTE | 2022-02-03 15:23 | XR ---
EXAMINATION TYPE: XR chest 2V DATE OF EXAM: 02/03/2022 COMPARISON: 01/25/2022 HISTORY: 81-year-old female shortness of breath, I26.99, PE, R79.1. TECHNIQUE: Frontal and lateral views FINDINGS: Electronic device projects over the left mediastinum. PFO occluder. Heart upper limits of normal in s ize. Patchy peripheral basilar densities on both sides. Upper and mid lungs appear clear. IMPRESSION: Interval development of some focal density at the costophrenic angles. Either patchy atelectasis vers us infiltrate or trace pleural effusions.
--- NOTE | 2022-02-03 15:58 | US ---
EXAMINATION TYPE: US venous doppler duplex LE DATE OF EXAM: 02/03/2022 3:12 PM COMPARISON: NONE CLINICAL HISTORY: R79.1 ABNORMAL COAGULATION PROFILE. elevated D dimer SIDE PERFORMED: Bilateral TECHNIQUE: The lower extremity deep venous system is examined utilizing real time linear array sonog fanny with graded compression, doppler sonography and color-flow sonography. VESSELS IMAGED: Common Femoral Vein Deep Femoral Vein Greater Saphenous Vein * Femoral Vein Popliteal Vein Small Saphenous Vein * Proximal Calf Veins (* superficial vessels) Right Leg: Negative for DVT Left Leg: Negative for DVT IMPRESSION: Grayscale, color doppler, spectral doppler imaging performed of the deep veins of the lo wer extremities. There is normal flow, compressibility, vascular waveforms.
== END | disposition home or self-care (01) ==
LOC: RADNMMAIN 12:55
PROVIDERS: ATTEND Family Medicine
DX: J98.4 Other disorders of lung (principal); R79.1 Abnormal coagulation profile; R79.89 Other specified abnormal findings of blood chemistry
CPT/HCPCS: 71046; 93970; 78582; A9540; A9567

== ENCOUNTER → 2023-03-15 | Outpatient (CLI) | payer MEDICARE, BC ==
[2023-03-15 10:01] VITALS: BP 123/75; PULSE 62; RESP 16
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
== END ==
LOC: PNWHC3 09:08
PROVIDERS: ATTEND Specialist
DX: M17.12 Unilateral primary osteoarthritis, left knee (principal); E03.9 Hypothyroidism, unspecified; E78.5 Hyperlipidemia, unspecified; G89.29 Other chronic pain; J45.909 Unspecified asthma, uncomplicated; Z86.73 Personal history of transient ischemic attack (TIA), and cerebral infarction without residual deficits; Z79.82 Long term (current) use of aspirin; Z96.652 Presence of left artificial knee joint; Z79.890 Hormone replacement therapy; Z91.041 Radiographic dye allergy status; Z88.0 Allergy status to penicillin; Z88.1 Allergy status to other antibiotic agents; Z88.8 Allergy status to other drugs, medicaments and biological substances; Z79.51 Long term (current) use of inhaled steroids
CPT/HCPCS: 99211

== ENCOUNTER → 2023-04-29 | Outpatient (CLI) | payer MEDICARE, BC | END | disposition home or self-care (01) | LOC: LABWHC1 15:20 | PROVIDERS: ATTEND Orthopaedic Surgery | DX: Z96.659 Presence of unspecified artificial knee joint (principal) | CPT/HCPCS: 36415; 85652; 86140 ==

== ENCOUNTER → 2023-05-05 | Outpatient (CLI) | payer MEDICARE, BC ==
--- NOTE | 2023-05-06 09:17 | NM ---
EXAMINATION TYPE: NM bone scan whole body DATE OF EXAM: 05/05/2023 COMPARISON: 07/10/2021 CLINICAL INDICATION: Female, 82 years old with history of Z96.659 PRESENCE OF UNSPECIFIED ARTIFICIAL KNEE ISMAEL; Delayed whole-body scanning was performed following the injection of 23.7 mCi Tc 99m MDP. Images acq uired 5 hours post injection. FINDINGS: Abnormal uptake involving the feet, right knee and bilateral shoulder. Postarthritic. Abnormal uptake scoliosis throughout the vertebral column mild to moderate intensity most likely dege nerative. Abnormal uptake involving the first carpal and intercarpal joints bilaterally compatible with lytic c hanges. Photopenic defect involving the left knee compatible with previous surgery. There is moderate intensity uptake along the patellar surface and posterior tibial surface of the kne e prostheses. Similar to prior exam. IMPRESSION: 1. Photopenic defect with increased uptake along the area of the patella, posterior margin of the tib ia, and articular portion of the femur adjacent to the photopenic defects. Findings are compatible wi th previous surgery. The abnormal uptake could be on the basis of postsurgical findings and appear si milar to the prior exam. If there is concern for loosening or infection correlating with triple phase bone scan. 2. Abnormal uptake involving the shoulders, wrists, right knee, and feet most likely on the basis of postarthritic change. 3. Scoliosis with multilevel degenerative disc disease likely accounting for the mild to moderate int ensity abnormal uptake throughout the vertebral column most marked at levels L4-S1.
== END | disposition home or self-care (01) ==
LOC: RADNMMAIN 07:34
PROVIDERS: ATTEND Orthopaedic Surgery
DX: M41.87 Other forms of scoliosis, lumbosacral region (principal); Z96.659 Presence of unspecified artificial knee joint
CPT/HCPCS: 78306; A9503

== ENCOUNTER → 2023-08-24 | Outpatient (CLI) | payer MEDICARE, BC ==
--- NOTE | 2023-08-27 14:31 | MM ---
Reason for Exam: Screening (asymptomatic). Last screening mammogram was performed 12 month(s) ago. Patient History: Menarche at age 13. First Full-Term at age 17. Postmenopausal. Excisional Biopsy on the Left side. Risk Values: Kamini 5 year model risk: 1.5%. NCI Lifetime model risk: 2.1%. Prior Study Comparison: 06/26/2021 Bilateral Screening Mammogram, [facility]. 08/27/2022 Bilateral Screening Mammogram, [facility]. Tissue Density: There are scattered fibroglandular densities. Findings: Analyzed By CAD. There is no suspicious group of microcalcifications or new suspicious mass. Benign-appearing calcifications bilaterally. Overall Assessment: Benign, BI-RAD 2 Management: Screening Mammogram of both breasts in [address] [facility] will attempt to contact patient to return for supplemental views and ultrasound if indicated. Patient should continue monthly self-breast exams. A clinical breast exam by your physician is recommended on an annual basis. This exam should not preclude additional follow-up of suspicious palpable abnormalities. Note on Kamini scores and lifetime risk: 1. A Kamini score greater than 3% is considered moderate risk. If this is the case, consider specialist referral to assess eligibility for a risk reducing agent. 2. If overall lifetime risk for the development of breast cancer is 20% or higher, the patient may qualify for future screening with alternating mammogram and breast MRI. Electronically signed and approved by: Los Dawn DO
== END | disposition home or self-care (01) ==
LOC: RADMAMWWP 13:15
PROVIDERS: ATTEND Internal Medicine Geriatric Medicine
DX: Z12.31 Encounter for screening mammogram for malignant neoplasm of breast (principal); Z78.0 Asymptomatic menopausal state
CPT/HCPCS: 77063; 77067

== ENCOUNTER 2023-08-26 14:03 | Inpatient (IN) | payer MEDICARE, BC ==
--- NOTE | 2023-08-26 16:57 | ED ---
General Adult HPI <Tyson Zepeda - Last Filed: 08/26/23 16:58> <YovanicookieArden - Last Filed: 09/06/23 19:19> - General Stated complaint: Asthma Time Seen by Provider: 08/26/23 16:57 - History of Present Illness Initial comments: 82-year-old female with past medical history significant for asthma presented to the ED with a chief complaint of shortness of breath. Patient states for the past 2 weeks has had cough. since onset, patient reports this has worsened and now notes that she is starting to feel short of breath due to this. (Tyson Zepeda) - Related Data Home Medications Medication Instructions Recorded Confirmed Levothyroxine Sodium [Synthroid] 75 mcg PO QAM 12/26/17 08/31/23 Albuterol Sulfate [Ventolin HFA] 2 puff INHALATION RT-Q6H PRN 08/27/23 08/31/23 Budesonide [Pulmicort] 0.5 mg INHALATION RT-BID 08/27/23 08/31/23 Budesonide/Glycopyr/Formoterol 2 puff INHALATION RT-BID 08/27/23 08/31/23 [Breztri Aerosphere Inhaler] Furosemide [Lasix] 20 mg PO DAILY PRN 08/27/23 08/31/23 Naproxen Sodium [Aleve] 220 mg PO BID PRN 08/27/23 08/31/23 Pantoprazole Sodium [Protonix] 40 mg PO DAILY PRN 08/27/23 08/31/23 Previous Rx's Medication Instructions Recorded Acetaminophen Tab [Tylenol] 650 mg PO Q4HR PRN tab 08/27/23 Baclofen 10 mg PO DAILY PRN #0 09/03/23 Lidocaine 4% Patch 1 patch TOPICAL DAILY #30 patch 09/03/23 Sennosides [Senokot] 8.6 mg PO HS PRN #20 tab 09/03/23 guaiFENesin [Mucinex] 600 mg PO Q12H 10 Days #20 tab 09/03/23 polyethylene glycoL 3350 [Miralax] 17 gm PO DAILY #30 packet 09/03/23 predniSONE 10 mg PO DIRECTED #16 tab 09/03/23 Allergies Allergy/AdvReac Type Severity Reaction Status Date / Time Iodinated Contrast Media Allergy Anaphylaxis Verified 08/31/23 06:41 [Iodinated Contrast Media - IV Dye] Penicillins Allergy Rash/Hives Verified 08/31/23 06:41 azithromycin AdvReac abdominal Verified 08/31/23 06:41 cramps montelukast sodium AdvReac Cough Verified 08/31/23 06:41 [From Singulair] prednisone AdvReac muscle Verified 08/31/23 06:41 cramping propofol AdvReac burning Verified 08/31/23 06:41 sensation in her body. Review of Systems ROS Other: All systems not noted in ROS Statement are negative. <Tyson Zepeda - Last Filed: 08/26/23 16:58> ROS Other: All systems not noted in ROS Statement are negative. <Arden Peters - Last Filed: 09/06/23 19:19> ROS Statement: Those systems with pertinent positive or pertinent negative responses have been documented in the HPI. Past Medical History Past Medical History: Asthma, CVA/TIA, Hyperlipidemia, Osteoarthritis (OA), Thyroid Disorder Additional Past Medical History / Comment(s): States irreg h/r, ? leaky valve History of Any Multi-Drug Resistant Organisms: None Reported Past Surgical History: Hysterectomy, Orthopedic Surgery, Tonsillectomy, Tubal Ligation Additional Past Surgical History / Comment(s): Thyroid, R and L knee surgery, cataracts. Past Anesthesia/Blood Transfusion Reactions: Previous Problems w/ Anesthesia Additional Past Anesthesia/Blood Transfusion Reaction / Comment(s): States whole body feels like it is burning up when getting what she believes is called propofol. Smoking Status: Never smoker - Past Family History Father Family Medical History: Diabetes Mellitus Additional Family Medical History / Comment(s): Father in his 60s from coronary artery disease. Mother Family Medical History: Cancer Additional Family Medical History / Comment(s): Mother in her 50s from asthma. Brother(s) Additional Family Medical History / Comment(s): Patient has 6 brothers and sisters. One has from MS. One is alive with MS. 2 have asthma. Daughter(s) Additional Family Medical History / Comment(s): Patient has a total of 5 children. One is from diabetes complication. One living has diabetes. <Tyson Zepeda - Last Filed: 08/26/23 16:58> General Exam <Tyson Zepeda - Last Filed: 08/26/23 16:58> Limitations: no limitations General appearance: alert, in no apparent distress Head exam: Present: atraumatic, normocephalic Eye exam: Present: normal appearance. Absent: scleral icterus, conjunctival injection Neck exam: Present: normal inspection Respiratory exam: Present: wheezes. Absent: respiratory distress, rales, rhonchi, stridor, accessory muscle use Cardiovascular Exam: Present: regular rate, normal rhythm, normal heart sounds. Absent: systolic murmur, diastolic murmur, rubs, gallop GI/Abdominal exam: Present: soft. Absent: distended, tenderness, guarding, rebound, rigid, mass Extremities exam: Present: normal inspection, normal capillary refill. Absent: pedal edema, calf tenderness Back exam: Present: normal inspection. Absent: CVA tenderness (R), CVA tenderness (L) Neurological exam: Present: alert Skin exam: Present: warm, dry, intact, normal color. Absent: rash <Arden Peters - Last Filed: 09/06/23 19:19> - General Exam Comments Initial Comments: Visual Physical Exam Vital signs reviewed General: Well-appearing, nontoxic, no acute distress. Head: Normocephalic, atraumatic Eyes: PERRLA, EOMI ENT: Airway patent Chest: coarse breath sounds bilaterally Skin: No visual rash, normal skin tone Neuro: Alert and oriented 3 Musculoskeletal: No gross abnormalities (Tyson Zepeda) Course Vital Signs 08/26/23 08/26/23 08/26/23 17:05 23:01 23:03 Temperature 98.3 F Pulse Rate 63 63 Respiratory 20 25 H 25 H Rate Blood Pressure 149/81 151/80 O2 Sat by Pulse 97 96 Oximetry 08/26/23 08/26/23 08/27/23 23:38 23:53 00:30 Temperature Pulse Rate 58 L 59 L 62 Respiratory 16 Rate Blood Pressure 146/74 O2 Sat by Pulse 100 Oximetry 08/27/23 08/27/23 08/27/23 01:30 02:30 03:30 Temperature Pulse Rate 60 58 L 56 L Respiratory 15 16 16 Rate Blood Pressure 160/81 119/86 132/74 O2 Sat by Pulse 99 99 99 Oximetry 08/27/23 08/27/23 08/27/23 04:30 05:30 06:00 Temperature Pulse Rate 60 62 60 Respiratory 18 18 18 Rate Blood Pressure 123/69 118/72 118/72 O2 Sat by Pulse 96 100 98 Oximetry EKG Findings - EKG Results: EKG: interpreted by ERMD, sinus rhythm (Rate 69 bpm) - Blocks, [place], Hypertrophy, ST Abn: QRS axis and voltage: low voltage (<0.5 MV total QRS and <1.0 MV in each precordial lead) <Arden Peters - Last Filed: 09/06/23 19:19> Medical Decision Making <Tyson Zepeda - Last Filed: 08/26/23 16:58> - Lab Data Result diagrams: 08/26/23 20:55 08/26/23 20:55 <Arden Peters - Last Filed: 09/06/23 19:19> - Medical Decision Making Quicknote portion performed. Signed Tyson Zepeda PA-C (Tyson Zepeda) This patient is an 82-year-old woman presenting for cough and wheeze swells chest tightness. She states that it feels identical to previous asthma exacerbations. The patient did have nebulized treatments but was not feeling near her baseline. She did have some mild improvement. I discussed further treatment including steroids, and the patient does agree to take low-dose prednisone. She states that high-dose prednisone causes severe muscle spasms for her. I will admit to have steroid and nebulized medications. The patient had chest x-ray which I interpreted as negative for acute infiltrate , pneumothorax, congestive heart failure Was pt. sent in by a medical professional or institution (RENAN Sandra, DIRECTOR PLANS, urgent care, hospital, or halfway...) When possible be specific @ -[No] Did you speak to anyone other than the patient for history (EMS, parent, family, police, friend...)? What history was obtained from this source @ -[No] Did you review nursing and triage notes (agree or disagree)? Why? @ -[I reviewed and agree with nursing and triage notes] Were old charts reviewed (outside hosp., previous admission, EMS record, old EKG, old radiological studies, urgent care reports/EKG's, halfway records)? Report findings @ -[Yes old charts were reviewed] Differential Diagnosis (chest pain, altered mental status, abdominal pain women, abdominal pain men, vaginal bleeding, weakness, fever, dyspnea, syncope, headache, dizziness, GI bleed, back pain, seizure, CVA, palpatations, mental health, musculoskeletal)? @ -[Differential Dyspnea: Coronary syndrome, arrhythmia, tamponade, asthma, COPD, pulmonary embolism, pneumonia, pneumothorax, pulmonary effusion, anaphylaxis, diabetic ketoacidosis, flailed chest, pulmonary contusion, diaphragmatic rupture, anemia, neuromuscular, this is not meant to be an all-inclusive list. EKG interpreted by me (3pts min.). @ -[ X-rays interpreted by me (1pt min.). @ -[I interpreted as above CT interpreted by me (1pt min.). @ -[None done] U/S interpreted by me (1pt. min.). @ -[None done] What testing was considered but not performed or refused? (CT, X-rays, U/S, labs)? Why? @ -[None] What meds were considered but not given or refused? Why? @ -[None] Did you discuss the management of the patient with other professionals (professionals i.e. , PA, DIRECTOR PLANS, lab, RT, psych nurse, social media marketing analyst, chiropractic practice manager, t eacher, correctional program officer, watch case polisher)? Give summary @ -[Case discussed with admitting physician and treatment recommendations are incorporated Was smoking cessation discussed for >3mins.? @ -[No] Was critical care preformed (if so, how long)? @ -[Yes the patient required 3 nebulized treatments in the department and reevaluation's as well as admission orders and consultation Were there social determinants of health that impacted care today? How? (Homelessness, low income, unemployed, alcoholism, drug addiction, transportation, low edu. Level, literacy, decrease access to med. care, fpc, rehab)? @ -[No] Was there de-escalation of care discussed even if they declined (Discuss DNR or withdrawal of care, Hospice)? DNR status @ -[No] What co-morbidities impacted this encounter? (DM, HTN, Smoking, COPD, CAD, Cancer, CVA, ARF, Chemo, Hep., AIDS, mental health diagnosis, sleep apnea, morbid obesity)? @ -[Underlying asthma] Was patient admitted / discharged? Hospital course, mention meds given and route, prescriptions, significant lab abnormalities, going to OR and other pertinent info. @ -[As above Undiagnosed new problem with uncertain prognosis? @ -[No] Drug Therapy requiring intensive monitoring for toxicity (Heparin, Nitro, Insulin, Cardizem)? @ -[No] Were any procedures done? @ -[No] Diagnosis/symptom? @ -[Acute exacerbation of asthma Acute, or Chronic, or Acute on Chronic? @ -[Acute on chronic Uncomplicated (without systemic symptoms) or Complicated (systemic symptoms)? @ -[, Complicated with dyspnea Side effects of treatment? @ -[No] Exacerbation, Progression, or Severe Exacerbation? @ -[Moderately severe exacerbation Poses a threat to life or bodily function? How? (Chest pain, [place], [place], pneumonia, PE, COPD, DKA, ARF, appy, cholecystitis, CVA, Diverticulitis, Homicidal, Suicidal, threat to staff... and all critical care pts) @ -[Yes worsening of asthma may result in respiratory failure/stent (Arden Peters) - Lab Data Lab Results 08/26/23 08/26/23 08/26/23 Range/Units 20:55 20:55 20:55 WBC 5.1 (3.8-10.6) k/uL RBC 4.51 (3.80-5.40) m/uL Hgb 14.1 (11.4-16.0) gm/dL Hct 43.1 (34.0-46.0) % MCV 95.7 (80.0-100.0) fL MCH 31.2 (25.0-35.0) pg MCHC 32.6 (31.0-37.0) g/dL RDW 14.0 (11.5-15.5) % Plt Count 280 (150-450) k/uL MPV 7.3 Neutrophils % 59 % Lymphocytes % 33 % Monocytes % 5 % Eosinophils % 1 % Basophils % 1 % Neutrophils # 3.0 (1.3-7.7) k/uL Lymphocytes # 1.7 (1.0-4.8) k/uL Monocytes # 0.3 (0-1.0) k/uL Eosinophils # 0.0 (0-0.7) k/uL Basophils # 0.0 (0-0.2) k/uL Sodium 141 (137-145) mmol/L Potassium 3.8 (3.5-5.1) mmol/L Chloride 108 H (98-107) mmol/L Carbon Dioxide 26 (22-30) mmol/L Anion Gap 7 mmol/L BUN 15 (7-17) mg/dL Creatinine 1.05 H (0.52-1.04) mg/dL Est GFR (CKD-EPI)AfAm 57 (>60 ml/min/1.73 sqM) Est GFR (CKD-EPI)NonAf 50 (>60 ml/min/1.73 sqM) Glucose 139 H (74-99) mg/dL Calcium 9.3 (8.4-10.2) mg/dL Total Bilirubin 0.5 (0.2-1.3) mg/dL AST 33 (14-36) U/L ALT 26 (4-34) U/L Alkaline Phosphatase 54 (38-126) U/L Total Protein 6.5 (6.3-8.2) g/dL Albumin 3.7 (3.5-5.0) g/dL Urine Color Colorless Urine Appearance Clear (Clear) Urine pH 5.0 (5.0-8.0) Ur Specific [place] 1.011 (1.001-1.035) Urine Protein Negative (Negative) Urine Glucose (UA) Negative (Negative) Urine Ketones Negative (Negative) Urine Blood Trace H (Negative) Urine Nitrite Negative (Negative) Urine Bilirubin Negative (Negative) Urine Urobilinogen <2.0 (<2.0) mg/dL Ur Leukocyte Esterase Negative (Negative) Urine RBC <1 (0-5) /hpf Urine WBC <1 (0-5) /hpf Urine Mucus Rare H (None) /hpf Influenza Type A (PCR) (Not Detectd) Influenza Type B (PCR) (Not Detectd) RSV (PCR) (Not Detectd) SARS-CoV-2 (PCR) (Not Detectd) 08/26/23 Range/Units 23:04 WBC (3.8-10.6) k/uL RBC (3.80-5.40) m/uL Hgb (11.4-16.0) gm/dL Hct (34.0-46.0) % MCV (80.0-100.0) fL MCH (25.0-35.0) pg MCHC (31.0-37.0) g/dL RDW (11.5-15.5) % Plt Count (150-450) k/uL MPV Neutrophils % % Lymphocytes % % Monocytes % % Eosinophils % % Basophils % % Neutrophils # (1.3-7.7) k/uL Lymphocytes # (1.0-4.8) k/uL Monocytes # (0-1.0) k/uL Eosinophils # (0-0.7) k/uL Basophils # (0-0.2) k/uL Sodium (137-145) mmol/L Potassium (3.5-5.1) mmol/L Chloride (98-107) mmol/L Carbon Dioxide (22-30) mmol/L Anion Gap mmol/L BUN (7-17) mg/dL Creatinine (0.52-1.04) mg/dL Est GFR (CKD-EPI)AfAm (>60 ml/min/1.73 sqM) Est GFR (CKD-EPI)NonAf (>60 ml/min/1.73 sqM) Glucose (74-99) mg/dL Calcium (8.4-10.2) mg/dL Total Bilirubin (0.2-1.3) mg/dL AST (14-36) U/L ALT (4-34) U/L Alkaline Phosphatase (38-126) U/L Total Protein (6.3-8.2) g/dL Albumin (3.5-5.0) g/dL Urine Color Urine Appearance (Clear) Urine pH (5.0-8.0) Ur Specific [place] (1.001-1.035) Urine Protein (Negative) Urine Glucose (UA) (Negative) Urine Ketones (Negative) Urine Blood (Negative) Urine Nitrite (Negative) Urine Bilirubin (Negative) Urine Urobilinogen (<2.0) mg/dL Ur Leukocyte Esterase (Negative) Urine RBC (0-5) /hpf Urine WBC (0-5) /hpf Urine Mucus (None) /hpf Influenza Type A (PCR) Not Detected (Not Detectd) Influenza Type B (PCR) Not Detected (Not Detectd) RSV (PCR) Not Detected (Not Detectd) SARS-CoV-2 (PCR) Not Detected (Not Detectd) Critical Care Time Critical Care Time: Yes (30 minutes) <Arden Peters - Last Filed: 09/06/23 19:19> Disposition <Tyson Zepeda - Last Filed: 08/26/23 16:58> Is patient prescribed a controlled substance at d/c from ED?: No <Arden Peters - Last Filed: 09/06/23 19:19> Clinical Impression: Acute asthma exacerbation Disposition: ADMITTED IP TO THIS HOSP Condition: Fair
--- NOTE | 2023-08-26 18:55 | XR ---
EXAMINATION TYPE: XR chest 2V DATE OF EXAM: 08/26/2023 COMPARISON: 02/03/2022 HISTORY: 82-year-old female increased shortness of breath and back pain, rule out pneumonia TECHNIQUE: PA and lateral views FINDINGS: Heart upper limits of normal in size. Tortuous/ectatic thoracic aorta. Interstitial prominence. Mild hyperinflation. No consolidation or pleural effusion. PFO closure device. IMPRESSION: 1. Interstitial prominence, possible underlying COPD. 2. Correlate to exclude bronchitis or asthma. No focal infiltrate seen.
[2023-08-26 21:03] LABS: Basophils % (A) 1 %; Eosinophils % (A) 1 %; HCT 43.1 % (34.0-46.0); HGB 14.1 gm/dL (11.4-16.0); Lymphocytes # (A) 1.7 k/uL (1.0-4.8); Lymphocytes % (A) 33 %; MCH 31.2 pg (25.0-35.0); MCHC 32.6 g/dL (31.0-37.0); MCV 95.7 fL (80.0-100.0); Mean Platelet Volume 7.3; Monocytes # (A) 0.3 k/uL (0-1.0); Monocytes % (A) 5 %; Neutrophils % (A) 59 %; Platelet Count 280 k/uL (150-450); RBC 4.51 m/uL (3.80-5.40); WBC 5.1 k/uL (3.8-10.6)
[2023-08-26 21:38] LABS: ALT 26 U/L (4-34); AST 33 U/L (14-36); African American GFR (CKD) 57 (>60 ml/min/1.73 sqM); Albumin 3.7 g/dL (3.5-5.0); Alkaline Phosphatase 54 U/L (38-126); Anion Gap 7 mmol/L; Blood Urea Nitrogen 15 mg/dL (7-17); Calcium 9.3 mg/dL (8.4-10.2); Carbon Dioxide 26 mmol/L (22-30); Chloride 108 mmol/L (98-107); Glucose 139 mg/dL (74-99); Non-African American GFR(CKD) 50 (>60 ml/min/1.73 sqM); Potassium 3.8 mmol/L (3.5-5.1); Sodium 141 mmol/L (137-145); Total Bilirubin 0.5 mg/dL (0.2-1.3); Total Protein 6.5 g/dL (6.3-8.2)
[2023-08-26] MEDS ORDERED: ALBUTEROL NEBULIZED 2.5 MG/3 ML INHALATION STA (22:07)
[2023-08-26] MEDS ORDERED: IPRATROPIUM-ALBUTEROL 3 ML NEB INHALATION STA (23:30)
[2023-08-26 23:38] LABS: Appearance,Urine Clear (Clear); Bilirubin,Urine Negative (Negative); Blood,Urine Trace (Negative); Color,Urine Colorless; Glucose,Urine (UA) Negative (Negative); Ketones,Urine Negative (Negative); Leukocyte Esterase,Urine Negative (Negative); Mucus,Urine Rare /hpf; Nitrite,Urine Negative (Negative); Protein,Urine Negative (Negative); RBC,Urine <1 /hpf (0-5); Specific Gravity,Urine 1.011 (1.001-1.035); Urobilinogen,Urine <2.0 mg/dL (<2.0); WBC,Urine <1 /hpf (0-5)
[2023-08-27] MEDS ORDERED: NALOXONE 0.4 MG/ML 1 ML VIAL IVP PRN (00:33)
[2023-08-27] MEDS ORDERED: ACETAMINOPHEN TAB 325 MG TAB PO PRN (00:33)
[2023-08-27] MEDS ORDERED: IPRATROPIUM-ALBUTEROL 3 ML NEB INHALATION PRN (00:33)
[2023-08-27] MEDS ORDERED: predniSONE 20 MG TAB PO SCH (01:00)
--- NOTE | 2023-08-27 06:50 | P.CNPUL ---
History of Present Illness Consult date: 08/27/23 Reason for consult: asthma Chief complaint: Shortness of breath and coughing especially at night. History of present illness: This is an 82-year-old -[place] female with past medical history significant for severe persistent asthma. Patient has been experiencing progressively worsening shortness of breath accompanied with a mostly dry nonproductive cough, occasionally clear sputum. Cough is worse especially at night. She awakens during the night with coughing fits. Endorses chest tightness and wheezing. Denies any fever, significant purulent sputum production, chest pain, or hemoptysis. Denies sick contacts. She does follow in the pulmonary office with Dr. Yee for her severe persistent asthma. She utilizes a combination of Breztri inhaler, DuoNeb's [id number], and when necessary albuterol rescue inhaler. She is also on Fasenra injections every 8 weeks. Patient came to the emergency room yesterday afternoon. Chest x-ray does not show any focal infiltrates or evidence of pneumonia. She has been started on a combination of DuoNeb's, Symbicort, and IV Solu-Medrol. She is currently sitting up in bed, on 2 L/m nasal cannula, in no acute distress. There is significant expiratory wheezes on auscultation. Labs unremarkable, no leukocytosis. Negative for influenza, RSV, COVID-19. Afebrile. Vitals are stable. Review of Systems REVIEW OF SYSTEMS: CONSTITUTIONAL: Denies any recent significant weight loss or weight gain. Denies fevers. EYES: Denies change in vision. EARS, NOSE, MOUTH, THROAT: Denies headaches, denies sore throat. CARDIOVASCULAR: Denies chest pain, palpitations or syncopal episodes. RESPIRATORY: See HPI. GASTROINTESTINAL: Denies change in appetite, abdominal pain, nausea and vomiting, or diarrhea GENITOURINARY: Denies hematuria, denies infections. MUSKULOSKELETAL: Denies pain, denies swelling. Reports chronic left leg pain INTEGUMENTARY: Denies rash, denies eczema. NEUROLOGICAL: Denies recent memory loss, no recent seizure activity. PSYCHIATRIC: Denies anxiety, denies depression. HEMATOLOGIC/LYMPHATIC: Denies anemia, denies enlarged lymph node Past Medical History Past Medical History: Asthma, CVA/TIA, Hyperlipidemia, Osteoarthritis (OA), Th yroid Disorder Additional Past Medical History / Comment(s): States irreg h/r, ? leaky valve History of Any Multi-Drug Resistant Organisms: None Reported Past Surgical History: Hysterectomy, Orthopedic Surgery, Tonsillectomy, Tubal Ligation Additional Past Surgical History / Comment(s): Thyroid, R and L knee surgery, cataracts. Past Anesthesia/Blood Transfusion Reactions: Previous Problems w/ Anesthesia Additional Past Anesthesia/Blood Transfusion Reaction / Comment(s): States whole body feels like it is burning up when getting what she believes is called propofol. Past Psychological History: No Psychological Hx Reported Smoking Status: Never smoker - Past Family History Father Family Medical History: Diabetes Mellitus Additional Family Medical History / Comment(s): Father in his 60s from coronary artery disease. Mother Family Medical History: Cancer Additional Family Medical History / Comment(s): Mother in her 50s from asthma. Brother(s) Additional Family Medical History / Comment(s): Patient has 6 brothers and sisters. One has from MS. One is alive with MS. 2 have asthma. Daughter(s) Additional Family Medical History / Comment(s): Patient has a total of 5 childre n. One is from diabetes complication. One living has diabetes. Medications and Allergies Home Medications Medication Instructions Recorded Confirmed Type Levothyroxine Sodium [Synthroid] 75 mcg PO QAM 12/26/17 03/15/23 History Budesonide 1 mg INHALATION RT-BID 03/14/18 03/15/23 History Budesonide/Formoterol Fumarate 1 puff INHALATION BID 05/02/19 03/15/23 History [Symbicort 160-4.5 Mcg Inhaler] Ergocalciferol [Vitamin D2 50,000 unit PO Q7D 05/02/19 03/15/23 History (MASOUD)] Aspirin [Adult Low Dose Aspirin EC] 81 mg PO BID #60 tablet.dr 05/12/19 03/15/23 Rx Docusate [Colace] 100 mg PO DAILY #30 capsule 05/12/19 03/15/23 Rx HYDROcodone/APAP 7.5-325MG [[place] 1 - 2 each PO Q6HR PRN #56 tab 05/12/19 03/15/23 Rx 7.5-325] traMADol HCL [Ultram] 50 mg PO Q6HR PRN 7 Days #28 tab 05/12/19 03/15/23 Rx Ipratropium-Albuterol Nebulize 3 ml INHALATION Q6HR PRN #90 ml 01/25/22 03/15/23 Rx [Duoneb 0.5 mg-3 mg/3 ml Soln] Lidocaine 5% Patch [Lidoderm] 1 each TP QAM 30 Days #30 patch 03/15/23 Rx Allergies Allergy/AdvReac Type Severity Reaction Status Date / Time Iodinated Contrast Media Allergy Anaphylaxis Verified 08/26/23 17:11 [Iodinated Contrast Media - IV Dye] montelukast sodium Allergy Cough Verified 08/26/23 17:11 [From Singulair] Penicillins Allergy Rash/Hives Verified 08/26/23 17:11 prednisone Allergy muscle Verified 08/26/23 17:11 cramping propofol Allergy burning Verified 08/26/23 17:11 sensation in her body. azithromycin AdvReac abdominal Verified 08/26/23 17:11 cramps Physical Exam Vitals: Vital Signs Temp Pulse Resp BP Pulse Ox 08/27/23 05:30 62 18 118/72 100 08/27/23 04:30 60 18 123/69 96 08/27/23 03:30 56 L 16 132/74 99 08/27/23 02:30 58 L 16 119/86 99 08/27/23 01:30 60 15 160/81 99 08/27/23 00:30 62 16 146/74 100 08/26/23 23:53 59 L 08/26/23 23:38 58 L 08/26/23 23:03 63 25 H 151/80 96 08/26/23 23:01 25 H 08/26/23 17:05 98.3 F 63 20 149/81 97 Intake and Output 08/26/23 08/26/23 08/27/23 14:59 22:59 06:59 Other: Weight 76.204 kg GENERAL EXAM: Alert, 82-year-old -[place] female, comfortable in no apparent distress. HEAD: Normocephalic and atraumatic EYES: Normal reaction of pupils, equal size. NOSE: Clear with pink turbinates. THROAT: No erythema or exudates. NECK: No masses, no JVD. CHEST: No chest wall deformity. LUNGS: Equal air entry with expiratory wheezes heard throughout. No crackles. No focal dullness. On 2 L/m nasal cannula. SpO2 is reading 98%. No conversational dyspnea or accessory muscle use.. CVS: S1 and S2 normal with no audible murmur, regular rhythm. No extra heart sounds ABDOMEN: No hepatosplenomegaly, active bowel sounds, no guarding or rigidity. SPINE: No scoliosis or deformity SKIN: No rashes CENTRAL NERVOUS SYSTEM: No focal deficits, tone is normal in all 4 extremities. EXTREMITIES: There is mild bilateral ankle edema. No clubbing, or cyanosis. Peripheral pulses are intact. Results - Laboratory Findings CBC and BMP: 08/26/23 20:55 08/26/23 20:55 Abnormal lab findings: Abnormal Labs 08/26/23 08/26/23 20:55 20:55 Chloride 108 H Creatinine 1.05 H Glucose 139 H Urine Blood Trace H Urine Mucus Rare H - Diagnostic Findings Chest x-ray: image reviewed Assessment and Plan Assessment: Exacerbation of severe persistent asthma, chest x-ray does not show any focal consolidation or evidence of pneumonia. Negative for influenza, RSV, COVID-19. Acute hypoxemic respiratory failure, secondary to above Hyperlipidemia History of CVA/TIA History of PFO, with closure device Hypothyroidism Chronic lower back pain and left knee pain with prior total knee replacement. Plan: Patient's medications, labs, chest x-ray reviewed. Continue supplemental oxygen as needed. Patient is started on a combination of Symbicort inhaler, DuoNeb [id number], and IV Solu-Medrol. On an outpatient basis, the patient also receives Fasenra injections. Her total esonophil count was 444. CXR does not show evidence of focal consolidation suggesting pneumonia. No need for antibiotics at this time. Vitals are stable. We will continue to follow I have personally seen and examined the patient, performed the documentation and the assessment and plan as written. Number of minutes spent on the visit:20 Time with Patient: Greater than 30
[2023-08-27] MEDS ORDERED: ALBUTEROL HFA INHALER INHALATION PRN (07:46)
[2023-08-27] MEDS ORDERED: PANTOPRAZOLE 40 MG TABLET PO PRN (07:46)
[2023-08-27] MEDS ORDERED: SYMBICORT 160-4.5 MCG INHALER INHALATION SCH (08:00)
[2023-08-27] MEDS: methylPREDNISolone SOD SUCCI 40 MG/ML 1 ML VIAL IV SCH ×2 (08:46→16:26)
[2023-08-27] MEDS ORDERED: LEVOTHYROXINE 75 MCG TAB PO SCH (09:00)
[2023-08-27] MEDS: IPRATROPIUM-ALBUTEROL 3 ML NEB INHALATION SCH ×3 (09:04→16:13)
[2023-08-27] MEDS ORDERED: NAPROXEN 250 MG TAB PO PRN (12:09)
[2023-08-27] MEDS ORDERED: DEXTROSE 50% SYRINGE 50 ML IVP PRN ×2 (12:09)
[2023-08-27] MEDS ORDERED: INSULIN ASPART (NovoLOG) 100 UNIT/ML VIAL SQ SCH (12:30)
[2023-08-27 12:56] LABS: Glucose,Whole Blood 161 mg/dL (70-110)
[2023-08-27 15:34] VITALS: BP 125/78; PULSE 117; RESP 20; TEMP 97.1
--- NOTE | 2023-08-27 19:49 | P.CNPUL ---
History of Present Illness Consult date: 08/27/23 Reason for consult: dyspnea, asthma History of present illness: Reason for consult: asthma Chief complaint: Shortness of breath and coughing especially at night. History of present illness: This is an 82-year-old -[place] female with past medical history signi ficant for severe persistent asthma. Patient has been followed up with me in the office for many years. She is known to have CAD persistent bronchial asthma and she is currently maintained on a combination of Breztri in addition to albuterol about treatments and albuterol HFA and more recently, Fasenra [id number] treatment. The patient has done very well while being on Fasenra and her need for steroids as reference significantly down as the patient was having frequent exacerbations requiring systemic 0 treatment. Unfortunately, over the past few days, she has been expressing worsening shortness of breath. She contacted my office and she was unable to be seen for that reason she came to the emergency department was has less for an acute asthma exacerbation. ient has been experiencing progressively worsening shortness of breath accompanied with a mostly dry nonproductive cough, occasionally clear sputum. Cough is worse especially at night. She awakens during the night with coughing fits. Endorses chest tightness and wheezing. Denies any fever, significant purulent sputum production, chest pain, or hemoptysis. Denies sick contacts. She utilizes a combination of Breztri inhaler, DuoNeb's [id number], and when necessary albuterol rescue inhaler. She is also on Fasenra injections every 8 weeks. Patient came to the emergency room yesterday afternoon. Chest x-ray does not show any focal infiltrates or evidence of pneumonia. She has been started on a combination of DuoNeb's, Symbicort, and IV Solu-Medrol. She is currently sitting up in bed, on 2 L/m nasal cannula, in no acute distress. There is significant expiratory wheezes on auscultation. Labs unremarkable, no leukocytosis. Negative for influenza, RSV, COVID-19. Afebrile. Vitals are stable. this morning, the patient is feeling significantly improved. He is on room air oxygen. She is a lifetime nonsmoker. Review of Systems REVIEW OF SYSTEMS: CONSTITUTIONAL: Denies any recent significant weight loss or weight gain. Denies fevers. EYES: Denies change in vision. EARS, NOSE, MOUTH, THROAT: Denies headaches, denies sore throat. CARDIOVASCULAR: Denies chest pain, palpitations or syncopal episodes. RESPIRATORY: See HPI. GASTROINTESTINAL: Denies change in appetite, abdominal pain, nausea and vomiting, or diarrhea GENITOURINARY: Denies hematuria, denies infections. MUSKULOSKELETAL: Denies pain, denies swelling. Reports chronic left leg pain INTEGUMENTARY: Denies rash, denies eczema. NEUROLOGICAL: Denies recent memory loss, no recent seizure activity. PSYCHIATRIC: Denies anxiety, denies depression. HEMATOLOGIC/LYMPHATIC: Denies anemia, denies enlarged lymph node Past Medical History Past Medical History: Asthma, CVA/TIA, Hyperlipidemia, Osteoarthritis (OA), Thyroid Disorder Additional Past Medical History / Comment(s): States irreg h/r, ? leaky valve History of Any Multi-Drug Resistant Organisms: None Reported Past Surgical History: Hysterectomy, Orthopedic Surgery, Tonsillectomy, Tubal Ligation Additional Past Surgical History / Comment(s): Thyroid, R and L knee surgery, cataracts. Past Anesthesia/Blood Transfusion Reactions: Previous Problems w/ Anesthesia Additional Past Anesthesia/Blood Transfusion Reaction / Comment(s): States whole body feels like it is burning up when getting what she believes is called propof ol. Past Psychological History: No Psychological Hx Reported Smoking Status: Never smoker - Past Family History Father Family Medical History: Diabetes Mellitus Additional Family Medical History / Comment(s): Father in his 60s from coronary artery disease. Mother Family Medical History: Cancer Additional Family Medical History / Comment(s): Mother in her 50s from asthma. Brother(s) Additional Family Medical History / Comment(s): Patient has 6 brothers and sisters. One has from MS. One is alive with MS. 2 have asthma. Daughter(s) Additional Family Medical History / Comment(s): Patient has a total of 5 children. One is from diabetes complication. One living has diabetes. Medications and Allergies Home Medications Medication Instructions Recorded Confirmed Type Levothyroxine Sodium [Synthroid] 75 mcg PO QAM 12/26/17 03/15/23 History Budesonide 1 mg INHALATION RT-BID 03/14/18 03/15/23 History Budesonide/Formoterol Fumarate 1 puff INHALATION BID 05/02/19 03/15/23 History [Symbicort 160-4.5 Mcg Inhaler] Ergocalciferol [Vitamin D2 50,000 unit PO Q7D 05/02/19 03/15/23 History (MASOUD)] Aspirin [Adult Low Dose Aspirin EC] 81 mg PO BID #60 tablet. 05/12/19 03/15/23 Rx Docusate [Colace] 100 mg PO DAILY #30 capsule 05/12/19 03/15/23 Rx HYDROcodone/APAP 7.5-325MG [[place] 1 - 2 each PO Q6HR PRN #56 tab 05/12/19 03/15/23 Rx 7.5-325] traMADol HCL [Ultram] 50 mg PO Q6HR PRN 7 Days #28 tab 05/12/19 03/15/23 Rx Ipratropium-Albuterol Nebulize 3 ml INHALATION Q6HR PRN #90 ml 01/25/22 03/15/23 Rx [Duoneb 0.5 mg-3 mg/3 ml Soln] Lidocaine 5% Patch [Lidoderm] 1 each TP QAM 30 Days #30 patch 03/15/23 Rx Allergies Allergy/AdvReac Type Severity Reaction Status Date / Time Iodinated Contrast Media Allergy Anaphylaxis Verified 08/26/23 17:11 [Iodinated Contrast Media - IV Dye] montelukast sodium Allergy Cough Verified 08/26/23 17:11 [From Singulair] Penicillins Allergy Rash/Hives Verified 08/26/23 17:11 prednisone Allergy muscle Verified 08/26/23 17:11 cramping propofol Allergy burning Verified 08/26/23 17:11 sensation in her body. azithromycin AdvReac abdominal Verified 08/26/23 17:11 cramps Physical Exam Vitals: Vital Signs Temp Pulse Resp BP Pulse Ox 08/27/23 05:30 62 18 118/72 100 08/27/23 04:30 60 18 123/69 96 08/27/23 03:30 56 L 16 132/74 99 08/27/23 02:30 58 L 16 119/86 99 08/27/23 01:30 60 15 160/81 99 08/27/23 00:30 62 16 146/74 100 08/26/23 23:53 59 L 08/26/23 23:38 58 L 08/26/23 23:03 63 25 H 151/80 96 08/26/23 23:01 25 H 08/26/23 17:05 98.3 F 63 20 149/81 97 Intake and Output 08/26/23 08/26/23 08/27/23 14:59 22:59 06:59 Other: Weight 76.204 kg GENERAL EXAM: Alert, 82-year-old -[place] female, comfortable in no ap parent distress. HEAD: Normocephalic and atraumatic EYES: Normal reaction of pupils, equal size. NOSE: Clear with pink turbinates. THROAT: No erythema or exudates. NECK: No masses, no JVD. CHEST: No chest wall deformity. LUNGS: Equal air entry with expiratory wheezes heard throughout. No crackles. No focal dullness. On 2 L/m nasal cannula. SpO2 is reading 98%. No conversational dyspnea or accessory muscle use.. CVS: S1 and S2 normal with no audible murmur, regular rhythm. No extra heart so unds ABDOMEN: No hepatosplenomegaly, active bowel sounds, no guarding or rigidity. SPINE: No scoliosis or deformity SKIN: No rashes CENTRAL NERVOUS SYSTEM: No focal deficits, tone is normal in all 4 extremities. EXTREMITIES: There is mild bilateral ankle edema. No clubbing, or cyanosis. Peripheral pulses are intact. Results - Laboratory Findings CBC and BMP: 08/26/23 20:55 08/26/23 20:55 Abnormal lab findings: Abnormal Labs 08/26/23 08/26/23 20:55 20:55 Chloride 108 H Creatinine 1.05 H Glucose 139 H Urine Blood Trace H Urine Mucus Rare H - Diagnostic Findings Chest x-ray: image reviewed Assessment and Plan Assessment: Exacerbation of severe persistent asthma, chest x-ray does not show any focal consolidation or evidence of pneumonia. Negative for influenza, RSV, COVID-19.clinically improved with IV Solu-Medrol and the patient's overall respiratory status is stabilized and she is feeling much improved she feels that she is about close to her baseline. Acute hypoxemic respiratory failure, secondary to above Hyperlipidemia History of CVA/TIA History of PFO, with closure device Hypothyroidism Chronic lower back pain and left knee pain with prior total knee replacement. Plan: I evaluated the patient. Her asthma is under better control for now The patient should be able to get discharged home on a prednisone burst taper She will continue her Breztri inhaler as maintenance and use the albuterol neb blotchiness up to 4 times a day She will be continuing her Fasenra shots every 2 months for a component of eosinophilic asthma He was reassured Follow-up with me in the office. Past Medical History Past Medical History: Asthma, CVA/TIA, Hyperlipidemia, Osteoarthritis (OA), Thyroid Disorder Additional Past Medical History / Comment(s): States irreg h/r, ? leaky valve History of Any Multi-Drug Resistant Organisms: None Reported Past Surgical History: Hysterectomy, Orthopedic Surgery, Tonsillectomy, Tubal Ligation Additional Past Surgical History / Comment(s): Thyroid, R and L knee surgery, cataracts. Past Anesthesia/Blood Transfusion Reactions: Previous Problems w/ Anesthesia Additional Past Anesthesia/Blood Transfusion Reaction / Comment(s): States whole body feels like it is burning up when getting what she believes is called propofol. Past Psychological History: No Psychological Hx Reported Smoking Status: Never smoker - Past Family History Father Family Medical History: Diabetes Mellitus Additional Family Medical History / Comment(s): Father in his 60s from coronary artery disease. Mother Family Medical History: Cancer Additional Family Medical History / Comment(s): Mother in her 50s from asthma. Brother(s) Additional Family Medical History / Comment(s): Patient has 6 brothers and sisters. One has from MS. One is alive with MS. 2 have asthma. Daughter(s) Additional Family Medical History / Comment(s): Patient has a total of 5 children. One is from diabetes complication. One living has diabetes. Medications and Allergies Home Medications Medication Instructions Recorded Confirmed Type Levothyroxine Sodium [Synthroid] 75 mcg PO QAM 12/26/17 08/27/23 History Acetaminophen Tab [Tylenol] 650 mg PO Q4HR PRN tab 08/27/23 Rx Albuterol Sulfate [Ventolin HFA] 2 puff INHALATION RT-Q6H PRN 08/27/23 08/27/23 History Baclofen 10 mg PO BID PRN 08/27/23 08/27/23 History Budesonide [Pulmicort] 0.5 mg INHALATION RT-BID 08/27/23 08/27/23 History Budesonide/Glycopyr/Formoterol 2 puff INHALATION RT-BID 08/27/23 08/27/23 History [Breztri Aerosphere Inhaler] Furosemide [Lasix] 20 mg PO DAILY PRN 08/27/23 08/27/23 History Naproxen Sodium [Aleve] 220 mg PO BID PRN 08/27/23 08/27/23 History Pantoprazole Sodium [Protonix] 40 mg PO DAILY PRN 08/27/23 08/27/23 History Allergies Allergy/AdvReac Type Severity Reaction Status Date / Time Iodinated Contrast Media Allergy Anaphylaxis Verified 08/27/23 07:33 [Iodinated Contrast Media - IV Dye] Penicillins Allergy Rash/Hives Verified 08/27/23 07:33 azithromycin AdvReac abdominal Verified 08/27/23 07:33 cramps montelukast sodium AdvReac Cough Verified 08/27/23 07:33 [From Singulair] prednisone AdvReac muscle Verified 08/27/23 07:33 cramping propofol AdvReac burning Verified 08/27/23 07:33 sensation in her body. Physical Exam Vitals: Vital Signs Temp Pulse Pulse Pulse Pulse Pulse Pulse 08/27/23 15:00 97.1 F L 117 H 08/27/23 14:24 130 H 120 H 98 130 H 08/27/23 12:36 62 08/27/23 12:17 64 08/27/23 08:00 97.3 F L 65 08/27/23 06:00 60 08/27/23 05:30 62 08/27/23 04:30 60 08/27/23 03:30 56 L 08/27/23 02:30 58 L 08/27/23 01:30 60 08/27/23 00:30 62 08/26/23 23:53 59 L 08/26/23 23:38 58 L 08/26/23 23:03 63 08/26/23 23:01 Resp BP BP Pulse Ox Pulse Ox Pulse Ox Pulse Ox 08/27/23 15:00 20 125/78 99 08/27/23 14:24 98 100 96 08/27/23 12:36 08/27/23 12:17 08/27/23 08:00 19 134/77 100 08/27/23 06:00 18 118/72 98 08/27/23 05:30 18 118/72 100 08/27/23 04:30 18 123/69 96 08/27/23 03:30 16 132/74 99 08/27/23 02:30 16 119/86 99 08/27/23 01:30 15 160/81 99 08/27/23 00:30 16 146/74 100 08/26/23 23:53 08/26/23 23:38 08/26/23 23:03 25 H 151/80 96 08/26/23 23:01 25 H Pulse Ox 08/27/23 15:00 08/27/23 14:24 98 08/27/23 12:36 08/27/23 12:17 08/27/23 08:00 08/27/23 06:00 08/27/23 05:30 08/27/23 04:30 08/27/23 03:30 08/27/23 02:30 08/27/23 01:30 08/27/23 00:30 08/26/23 23:53 08/26/23 23:38 08/26/23 23:03 08/26/23 23:01 Intake and Output 08/27/23 08/27/23 08/27/23 06:59 14:59 22:59 Intake Total 118 Balance 118 Intake: Oral 118 Other: # Voids 2 Weight 76.204 kg Results - Laboratory Findings CBC and BMP: 08/26/23 20:55 08/26/23 20:55 Abnormal lab findings: Abnormal Labs 08/26/23 08/26/23 08/27/23 20:55 20:55 12:55 Chloride 108 H Creatinine 1.05 H Glucose 139 H POC Glucose (mg/dL) 161 H Urine Blood Trace H Urine Mucus Rare H
--- NOTE | 2023-08-29 12:15 | P.HPIM ---
History of Present Illness H&P Date: 08/27/23 This is a 82-year-old female who presented to the emergency department with increasing shortness of breath with a past medical history of severe persistent asthma and follows with Dr. Yee outpatient. Patient's family primary care provider is Dr. Valles and patient has a past medical history of asthma, CVA/TIA, hyperlipidemia, osteoarthritis, hypothyroid. Patient has never been a smoker and denies any other drinking or illicit drug use. Patient has been reporting significant shortness of breath with increased wheezing over the last few days with some coughing. Patient felt further shortness of breath and was brought to the emergency department and placed on supplemental oxygen and reports to feeling improved. Patient does use inhalers in the outpatient setting and was started on DuoNeb treatments along with IV steroids. Patient continues on 2 L via nasal cannula and will evaluated for home O2 assessment. Patient had RSV/Colace/influenza testing which were all negative and chest x-ray with no acute process noted. Review Of Systems: Constitutional: No fever, no chills, no night sweats. No weight change. No weakness, fatigue or lethargy. No daytime sleepiness. EENT: No headache. No blurred vision or double vision, no loss of vision. No loss of Hearing, no ringing in the ears, no dizziness. No nasal drainage or congestion. No epistaxis. No sore throat. Lungs: Reports of increased shortness of breath, reports of cough, no sputum production. Reports of wheezing. Cardiovascular: No chest pain, no lower extremity edema. No palpitations. No paroxysmal nocturnal dyspnea. No orthopnea. No lightheadedness or dizziness. No syncopal episodes. Abdominal: No abdominal pain. No nausea, vomiting. No diarrhea. No constipation. No bloody or tarry stools.. No loss of appetite. Genitourinary: No dysuria, increased frequency, urgency. No urinary retention. Musculoskeletal: No myalgias. No muscle weakness, no gait dysfunction, no frequent falls. No back pain. No neck pain. Integumentary: No wounds, no lesions. No rash or pruritus. No unusual bruising . No change in hair or nails. Neurologic: No aphasia. No facial droop. No change in mentation. No head injury. No headache. No paralysis. No paresthesia. Psychiatric: No depression. No anxiety. No mood swings. Endocrine: No abnormal blood sugars. No weight change. No excessive sweating or thirst. No cold intolerance. PHYSICAL EXAMINATION: GENERAL: The patient is alert and oriented x4, Well developed, well nourished. Elderly-appearing -[place] female HEENT: Pupils are round and equally reacting to light. EOMI. no scleral icterus. No conjunctival pallor. Normocephalic, atraumatic. No pharyngeal erythema. No thyromegaly. CARDIOVASCULAR: S1 and S2 muffled PULMONARY: diminished breath sounds bilaterally with some expiratory wheezing and coarse rhonchi noted. ABDOMEN: soft. Nontender on exam. obese. non-distended, normoactive bowel sounds. No palpable organomegaly. MUSCULOSKELETAL: No joint swelling or deformity. EXTREMITIES: No cyanosis, clubbing, or pedal edema. NEUROLOGICAL: Gross neurological examination did not reveal any focal deficits. SKIN: No rashes. Assessment: Shortness of breath with acute hypoxic respiratory failure secondary to severe persistent asthma, acute exacerbation History of CVA/TIA Hyperlipidemia history History of hypothyroidism History of chronic low back pain GI prophylaxis DVT prophylaxis Full code Plan: Recommend to continue with current medications and management with pulmonary following. Patient was started on breathing inhalational treatments along with IV steroids and will add sliding scale with [facility] Pulmonary following an recommend continue current regimen and close outpatient follow-up Home medications reviewed and resumed Patient to be tested for home oxygen although is maintaining oxygen saturations above 95% on 2 L and may not qualify. Encouraged increased activity as tolerated and up and walking with possible discharge later today The impression and plan of care has been dictated by Elisha Grubbs, nurse practitioner as directed. Dr. Melissa MD I have performed a history and examination and MDM of this patient, discussed the same with the dictator, and agree with the dictator's assessment and plan as written ,documented as a scribe. Based on total visit time, I have performed more than 50% of the visit. Any additional findings or plans will be noted. Past Medical History Past Medical History: Asthma, CVA/TIA, Hyperlipidemia, Osteoarthritis (OA), Thyroid Disorder Additional Past Medical History / Comment(s): States irreg h/r, ? leaky valve History of Any Multi-Drug Resistant Organisms: None Reported Past Surgical History: Hysterectomy, Orthopedic Surgery, Tonsillectomy, Tubal Ligation Additional Past Surgical History / Comment(s): Thyroid, R and L knee surgery, cataracts. Past Anesthesia/Blood Transfusion Reactions: Previous Problems w/ Anesthesia Additional Past Anesthesia/Blood Transfusion Reaction / Comment(s): States whole body feels like it is burning up when getting what she believes is called propofol. Past Psychological History: No Psychological Hx Reported Smoking Status: Never smoker - Past Family History Father Family Medical History: Diabetes Mellitus Additional Family Medical History / Comment(s): Father in his 60s from coronary artery disease. Mother Family Medical History: Cancer Additional Family Medical History / Comment(s): Mother in her 50s from asthma. Brother(s) Additional Family Medical History / Comment(s): Patient has 6 brothers and sisters. One has from MS. One is alive with MS. 2 have asthma. Daughter(s) Additional Family Medical History / Comment(s): Patient has a total of 5 children. One is from diabetes complication. One living has diabetes. Medications and Allergies Home Medications Medication Instructions Recorded Confirmed Type Levothyroxine Sodium [Synthroid] 75 mcg PO QAM 12/26/17 08/27/23 History Acetaminophen Tab [Tylenol] 650 mg PO Q4HR PRN tab 08/27/23 Rx Albuterol Sulfate [Ventolin HFA] 2 puff INHALATION RT-Q6H PRN 08/27/23 08/27/23 History Baclofen 10 mg PO BID PRN 08/27/23 08/27/23 History Budesonide [Pulmicort] 0.5 mg INHALATION RT-BID 08/27/23 08/27/23 History Budesonide/Glycopyr/Formoterol 2 puff INHALATION RT-BID 08/27/23 08/27/23 History [Breztri Aerosphere Inhaler] Furosemide [Lasix] 20 mg PO DAILY PRN 08/27/23 08/27/23 History Naproxen Sodium [Aleve] 220 mg PO BID PRN 08/27/23 08/27/23 History Pantoprazole Sodium [Protonix] 40 mg PO DAILY PRN 08/27/23 08/27/23 History predniSONE 10 mg PO DIRECTED #30 tab 08/29/23 Rx Allergies Allergy/AdvReac Type Severity Reaction Status Date / Time Iodinated Contrast Media Allergy Anaphylaxis Verified 08/27/23 07:33 [Iodinated Contrast Media - IV Dye] Penicillins Allergy Rash/Hives Verified 08/27/23 07:33 azithromycin AdvReac abdominal Verified 08/27/23 07:33 cramps montelukast sodium AdvReac Cough Verified 08/27/23 07:33 [From Singulair] prednisone AdvReac muscle Verified 08/27/23 07:33 cramping propofol AdvReac burning Verified 08/27/23 07:33 sensation in her body. Physical Exam Vitals: Vital Signs Temp Pulse Pulse Resp BP BP Pulse Ox 08/27/23 08:00 97.3 F L 65 19 134/77 100 08/27/23 06:00 60 18 118/72 98 08/27/23 05:30 62 18 118/72 100 08/27/23 04:30 60 18 123/69 96 08/27/23 03:30 56 L 16 132/74 99 08/27/23 02:30 58 L 16 119/86 99 08/27/23 01:30 60 15 160/81 99 08/27/23 00:30 62 16 146/74 100 08/26/23 23:53 59 L 08/26/23 23:38 58 L 08/26/23 23:03 63 25 H 151/80 96 08/26/23 23:01 25 H 08/26/23 17:05 98.3 F 63 20 149/81 97 Intake and Output 08/26/23 08/27/23 08/27/23 22:59 06:59 14:59 Intake Total 118 Balance 118 Intake: Oral 118 Other: Weight 76.204 kg 76.204 kg Results CBC & Chem 7: 08/26/23 20:55 08/26/23 20:55 Labs: Abnormal Lab Results - Last 24 Hours (Table) 08/26/23 08/26/23 Range/Units 20:55 20:55 Chloride 108 H (98-107) mmol/L Creatinine 1.05 H (0.52-1.04) mg/dL Glucose 139 H (74-99) mg/dL Urine Blood Trace H (Negative) Urine Mucus Rare H (None) /hpf Thrombosis Risk Factor Assmnt - DVT/VTE Prophylaxis DVT/VTE Prophylaxis: Mechanical Prophylaxis ordered Assessment and Plan Time with Patient: Greater than 30
--- NOTE | 2023-08-29 12:24 | P.DS ---
Providers Date of admission: 08/27/23 12:41 Expected date of discharge: 08/27/23 Attending physician: Alex Chan Consults: 08/27/23 11:54 Consult Physician Urgent Consulting Provider: Pamela Yee Consult Reason/Comments: asthma exac Do you want consulting provider notified?: Yes Primary care physician: Fernandez [facility] Course: Final diagnosis Shortness of breath with acute hypoxic respiratory failure secondary to severe persistent asthma, acute exacerbation History of CVA/TIA Hyperlipidemia history History of hypothyroidism History of chronic low back pain GI prophylaxis DVT prophylaxis Full code Discharge disposition Patient is being discharged in a stable condition with guarded prognosis to home. Patient will follow-up with Dr. Valles in the outpatient setting upon discharge. Patient is to continue with current medications as prescribed below on close outpatient follow-up with pulmonary as scheduled. Total time taken is greater than 35 minutes. Hospital course This is a 82-year-old female who was recently admitted for increasing shortness of breath due to persistent asthma exacerbation. Patient had significant wheezing and was started on DuoNeb treatments along with IV steroids. Patient was seen and evaluated by pulmonary who follows with Dr. Yee outpatient and has been encouraged to follow-up in 1-2 weeks continue prednisone taper and continue with inhalers. Patient with concerns of feeling more short of breath with coughing spells was evaluated for home oxygen although did not qualify patient's oxygen saturations maintained above 95% on room air with exertion. Patient has been instructed to follow-up with primary care provider this week. Please refer to pulmonary no for further HPI. Currently no reports of chest arnold n, no worsening shortness of breath, or palpitations. Patient is afebrile. No reports of nausea or vomiting and patient is tolerating diet. Patient will be discharged home today. Physical exam: Gen: This is a 82-year-old female who is awake, alert and oriented 3, well- developed, well-nourished, elderly-appearing HEENT: Head is atraumatic, normocephalic. Pupils equal, round. Sclerae is anict daren. NECK: Supple. No JVD. No lymphadenopathy. No thyromegaly. LUNGS: Diminished breath sounds bilaterally with some scattered expiratory wheezes and rhonchi. No intercostal retractions. HEART: Regular rate and rhythm. No murmur. ABDOMEN: Soft. Bowel sounds are present. No masses. No tenderness. EXTREMITIES: No pedal edema. No calf tenderness. NEUROLOGICAL: Patient is awake, alert and oriented x3. Cranial nerves 2 through 12 are grossly intact. Please refer to medication reconciliation sheet for a list of medications. The impression and plan of care has been dictated by Elisha Grubbs, Nurse Practitioner as directed. Dr. Melissa MD I have performed a history and examination and MDM of this patient, discussed the same with the dictator, and agree with the dictator's assessment and plan as written ,documented as a scribe. Based on total visit time, I have performed more than 50% of the visit. Patient Condition at Discharge: Fair Plan - Discharge Summary New Discharge Prescriptions: New predniSONE 10 mg PO DIRECTED #30 tab Acetaminophen Tab [Tylenol] 650 mg PO Q4HR PRN tab PRN Reason: Mild Pain Or Fever > 100.5 Continue Levothyroxine Sodium [Synthroid] 75 mcg PO QAM Albuterol Sulfate [Ventolin HFA] 2 puff INHALATION RT-Q6H PRN PRN Reason: Shortness Of Breath Naproxen Sodium [Aleve] 220 mg PO BID PRN PRN Reason: Pain Pantoprazole Sodium [Protonix] 40 mg PO DAILY PRN PRN Reason: gerd Furosemide [Lasix] 20 mg PO DAILY PRN PRN Reason: Edema Budesonide [Pulmicort] 0.5 mg INHALATION RT-BID Baclofen 10 mg PO BID PRN PRN Reason: Muscle Pain Budesonide/Glycopyr/Formoterol [Breztri Aerosphere Inhaler] 2 puff INHALATION RT-BID Discharge Medication List Levothyroxine Sodium [Synthroid] 75 mcg PO QAM 12/26/17 [History] Acetaminophen Tab [Tylenol] 650 mg PO Q4HR PRN tab 08/27/23 [Rx] Albuterol Sulfate [Ventolin HFA] 2 puff INHALATION RT-Q6H PRN 08/27/23 [History] Baclofen 10 mg PO BID PRN 08/27/23 [History] Budesonide [Pulmicort] 0.5 mg INHALATION RT-BID 08/27/23 [History] Budesonide/Glycopyr/Formoterol [Breztri Aerosphere Inhaler] 2 puff INHALATION RT-BID 08/27/23 [History] Furosemide [Lasix] 20 mg PO DAILY PRN 08/27/23 [History] Naproxen Sodium [Aleve] 220 mg PO BID PRN 08/27/23 [History] Pantoprazole Sodium [Protonix] 40 mg PO DAILY PRN 08/27/23 [History] predniSONE 10 mg PO DIRECTED #30 tab 08/29/23 [Rx] Follow up Appointment(s)/Referral(s): Fernandez Valles MD [Primary Care Provider] - 1-2 days Pamela Yee MD [STAFF PHYSICIAN] - 09/10/23 10:15 am Activity/Diet/Wound Care/Special Instructions: Activity Limited until follow-up Follow-up with primary care provider on discharge Follow-up with pulmonary outpatient next week Continue taking medications as prescribed Continue with inhalers Discharge Disposition: HOME SELF-CARE
== END 2023-08-27 16:20 | disposition home or self-care (01) | DRG 189 ==
LOC: EC 14:03 → 6NMEDSUR 08-27 00:35 → OBSVTOIN 08-27 12:41
PROVIDERS: ADMIT Hospitalist; ATTEND Hospitalist
DX: J96.01 Acute respiratory failure with hypoxia (principal); J45.51 Severe persistent asthma with (acute) exacerbation; E03.9 Hypothyroidism, unspecified; E78.5 Hyperlipidemia, unspecified; G89.29 Other chronic pain; M19.90 Unspecified osteoarthritis, unspecified site; M54.50 Low back pain, unspecified; I25.10 Atherosclerotic heart disease of native coronary artery without angina pectoris; Z79.82 Long term (current) use of aspirin; Z79.51 Long term (current) use of inhaled steroids; Z79.890 Hormone replacement therapy; Z79.899 Other long term (current) drug therapy; Z82.49 Family history of ischemic heart disease and other diseases of the circulatory system; Z82.5 Family history of asthma and other chronic lower respiratory diseases; Z86.73 Personal history of transient ischemic attack (TIA), and cerebral infarction without residual deficits; Z96.652 Presence of left artificial knee joint; Z11.52 Encounter for screening for COVID-19; Z88.0 Allergy status to penicillin; Z88.8 Allergy status to other drugs, medicaments and biological substances; Z88.1 Allergy status to other antibiotic agents; Z91.041 Radiographic dye allergy status; Z86.79 Personal history of other diseases of the circulatory system
CPT/HCPCS: 36415; 71046; 80053; 81001; 85025; 87636; 94640; 99291

== ENCOUNTER 2023-08-30 17:58 | Inpatient (IN) | payer MEDICARE, BC ==
[2023-08-30] MEDS ORDERED: IPRATROPIUM-ALBUTEROL 3 ML NEB INHALATION STA (18:45)
--- NOTE | 2023-08-30 18:45 | XR ---
EXAMINATION TYPE: XR chest 2V DATE OF EXAM: 08/30/2023 6:38 PM CLINICAL INDICATION:Female, 82 years old with history of r/o pna; COMPARISON: Chest radiographs from 08/26/2023. TECHNIQUE: XR chest 2V Frontal and lateral views of the chest. FINDINGS: Lungs/Pleura: Prominent interstitial lung markings are seen scattered throughout the lungs with lisa ening of the diaphragm and increased lucency of the lung apices. No evidence of focal consolidation, pneumothorax or pleural effusion. Pulmonary vascularity: Unremarkable. Heart/mediastinum: Cardiomediastinal silhouette is unremarkable. Musculoskeletal: No acute osseous pathology. IMPRESSION: 1. No significant change from prior, No acute cardiopulmonary disease process. 2. COPD changes.
[2023-08-30] MEDS ORDERED: methylPREDNISolone SOD SUCCI 125 MG/2 ML VIAL IV STA (18:46)
--- NOTE | 2023-08-30 18:48 | ED ---
General Adult HPI - General Chief complaint: Shortness of Breath Stated complaint: asthmatic difficulty breathing Time Seen by Provider: 08/30/23 18:17 Source: patient Mode of arrival: ambulatory Limitations: no limitations - History of Present Illness Initial comments: 82-year-old female with a past medical history significant for asthma presenting to the ED with a chief complaint of dyspnea. Patient reports for the past 2 weeks has had cough, congestion. Secondary to symptoms reports exacerbation of asthma symptoms. States was seen by her PCP for this a week ago and was instructed to continue using breathing treatments as needed for her symptoms. Despite using breathing treatments over the past week shortness of breath has been worsening prompting presentation to the ED for further evaluation. No chest pain. Denies fevers however notes some chills. No other complaints. - Related Data Home Medications Medication Instructions Recorded Confirmed Levothyroxine Sodium [Synthroid] 75 mcg PO QAM 12/26/17 08/27/23 Albuterol Sulfate [Ventolin HFA] 2 puff INHALATION RT-Q6H PRN 08/27/23 08/27/23 Baclofen 10 mg PO BID PRN 08/27/23 08/27/23 Budesonide [Pulmicort] 0.5 mg INHALATION RT-BID 08/27/23 08/27/23 Budesonide/Glycopyr/Formoterol 2 puff INHALATION RT-BID 08/27/23 08/27/23 [Breztri Aerosphere Inhaler] Furosemide [Lasix] 20 mg PO DAILY PRN 08/27/23 08/27/23 Naproxen Sodium [Aleve] 220 mg PO BID PRN 08/27/23 08/27/23 Pantoprazole Sodium [Protonix] 40 mg PO DAILY PRN 08/27/23 08/27/23 Previous Rx's Medication Instructions Recorded Acetaminophen Tab [Tylenol] 650 mg PO Q4HR PRN tab 08/27/23 predniSONE 10 mg PO DIRECTED #30 tab 08/29/23 Allergies Allergy/AdvReac Type Severity Reaction Status Date / Time Iodinated Contrast Media Allergy Anaphylaxis Verified 08/30/23 18:14 [Iodinated Contrast Media - IV Dye] Penicillins Allergy Rash/Hives Verified 08/30/23 18:14 azithromycin AdvReac abdominal Verified 08/30/23 18:14 cramps montelukast sodium AdvReac Cough Verified 08/30/23 18:14 [From Singulair] prednisone AdvReac muscle Verified 08/30/23 18:14 cramping propofol AdvReac burning Verified 08/30/23 18:14 sensation in her body. Review of Systems ROS Statement: Those systems with pertinent positive or pertinent negative responses have been documented in the HPI. ROS Other: All systems not noted in ROS Statement are negative. Past Medical History Past Medical History: Asthma, CVA/TIA, Hyperlipidemia, Osteoarthritis (OA), Thyroid Disorder Additional Past Medical History / Comment(s): States irreg h/r, ? leaky valve History of Any Multi-Drug Resistant Organisms: None Reported Past Surgical History: Hysterectomy, Orthopedic Surgery, Tonsillectomy, Tubal Ligation Additional Past Surgical History / Comment(s): Thyroid, R and L knee surgery, cataracts. Past Anesthesia/Blood Transfusion Reactions: Previous Problems w/ Anesthesia Additional Past Anesthesia/Blood Transfusion Reaction / Comment(s): States whole body feels like it is burning up when getting what she believes is called propofol. Past Psychological History: No Psychological Hx Reported Smoking Status: Never smoker Past Alcohol Use History: None Reported Past Drug Use History: None Reported - Past Family History Father Family Medical History: Diabetes Mellitus Additional Family Medical History / Comment(s): Father in his 60s from coronary artery disease. Mother Family Medical History: Cancer Additional Family Medical History / Comment(s): Mother in her 50s from asthma. Brother(s) Additional Family Medical History / Comment(s): Patient has 6 brothers and sisters. One has from MS. One is alive with MS. 2 have asthma. Daughter(s) Additional Family Medical History / Comment(s): Patient has a total of 5 children. One is from diabetes complication. One living has diabetes. General Exam Limitations: no limitations General appearance: alert Respiratory exam: Present: other (Coarse some breath sounds bilaterally. No evidence of accessory muscle use.) Cardiovascular Exam: Present: regular rate Neurological exam: Present: alert, oriented X3 Skin exam: Present: warm, dry Course Vital Signs 08/30/23 18:11 Temperature 98 F Pulse Rate 99 Respiratory 18 Rate Blood Pressure 139/76 O2 Sat by Pulse 94 L Oximetry Medical Decision Making - Medical Decision Making Was pt. sent in by a medical professional or institution (Dr., PA, PHP WEB DEVELOPER, urgent care, hospital, or group home...) When possible be specific @ -No Did you speak to anyone other than the patient for history (EMS, parent, family, police, friend...)? What history was obtained from this source @ -No Did you review nursing and triage notes (agree or disagree)? Why? @ -I reviewed and agree with nursing and triage notes Were old charts reviewed (outside hosp., previous admission, EMS record, old EKG, old radiological studies, urgent care reports/EKG's, group home records)? Report findings @ -No old charts were reviewed Differential Diagnosis (chest pain, altered mental status, abdominal pain women, abdominal pain men, vaginal bleeding, weakness, fever, dyspnea, syncope, headache, dizziness, GI bleed, back pain, seizure, CVA, palpatations, mental health, musculoskeletal)? @ -Differential Dyspnea: Coronary syndrome, arrhythmia, tamponade, asthma, COPD, pulmonary embolism, pneumonia, pneumothorax, pulmonary effusion, anaphylaxis, diabetic ketoacidosis, flailed chest, pulmonary contusion, diaphragmatic rupture, anemia, neuromuscular, this is not meant to be an all-inclusive list. EKG interpreted by me (3pts min.). @ -None X-rays interpreted by me (1pt min.). @ -X-ray interpreted by me showing no evidence of acute process. CT interpreted by me (1pt min.). @ -None done U/S interpreted by me (1pt. min.). @ -None done What testing was considered but not performed or refused? (CT, X-rays, U/S, labs)? Why? @ -None What meds were considered but not given or refused? Why? @ -None Did you discuss the management of the patient with other professionals (professionals i.e. , PA, PHP WEB DEVELOPER, lab, RT, psych nurse, social media assistant, marketing operations manager, teacher, probation officer, child support case officer)? Give summary @ -Case discussed with Estefanía Escobedo, who accepts admission for [facility]. Was smoking cessation discussed for >3mins.? @ -No Was critical care preformed (if so, how long)? @ -No Were there social determinants of health that impacted care today? How? (Homelessness, low income, unemployed, alcoholism, drug addiction, transportation, low edu. Level, literacy, decrease access to med. care, penitentiary, rehab)? @ -No Was there de-escalation of care discussed even if they declined (Discuss DNR or withdrawal of care, Hospice)? DNR status @ -No What co-morbidities impacted this encounter? (DM, HTN, Smoking, COPD, CAD, Cancer, CVA, ARF, Chemo, Hep., AIDS, mental health diagnosis, sleep apnea, morbid obesity)? @ -Asthma Was patient admitted / discharged? Hospital course, mention meds given and route, prescriptions, significant lab abnormalities, going to OR and other pertinent info. @ -Admission 82-year-old female presented to the ED with 2 weeks of cough, congestion, and recently notes her breathing treatments have not been providing relief. Chest x- ray revealed no acute process. Laboratory studies at this time currently pending. Secondary to continued hypoxia and dyspnea after breathing treatment here and at home, patient will be admitted. Discussed plan of care with patient who is in agreement. Undiagnosed new problem with uncertain prognosis? @ -No Drug Therapy requiring intensive monitoring for toxicity (Heparin, Nitro, Insulin, Cardizem)? @ -No Were any procedures done? @ -No Diagnosis/symptom? @ -COVID, Hypoxia Acute, or Chronic, or Acute on Chronic? @ -Acute Uncomplicated (without systemic symptoms) or Complicated (systemic symptoms)? @ -Complicated Side effects of treatment? @ -No Exacerbation, Progression, or Severe Exacerbation? @ -No Poses a threat to life or bodily function? How? (Chest pain, [place], [place], pneumonia, PE, COPD, DKA, ARF, appy, cholecystitis, CVA, Diverticulitis, Homicidal, Suicidal, threat to staff... and all critical care pts) @ -Possibly - Lab Data Result diagrams: 08/30/23 22:31 Lab Results 08/30/23 08/30/23 Range/Units 18:29 22:31 Sodium 139 (137-145) mmol/L Potassium 3.5 (3.5-5.1) mmol/L Chloride 112 H (98-107) mmol/L Carbon Dioxide 18 L (22-30) mmol/L Anion Gap 9 mmol/L BUN 10 (7-17) mg/dL Creatinine 0.68 (0.52-1.04) mg/dL Est GFR (CKD-EPI)AfAm >90 (>60 ml/min/1.73 sqM) Est GFR (CKD-EPI)NonAf 82 (>60 ml/min/1.73 sqM) Glucose 111 H (74-99) mg/dL Calcium 7.5 L (8.4-10.2) mg/dL Total Bilirubin 0.5 (0.2-1.3) mg/dL AST 29 (14-36) U/L ALT 20 (4-34) U/L Alkaline Phosphatase 51 (38-126) U/L Total Protein 5.8 L (6.3-8.2) g/dL Albumin 3.1 L (3.5-5.0) g/dL Influenza Type A (PCR) Not Detected (Not Detectd) Influenza Type B (PCR) Not Detected (Not Detectd) RSV (PCR) Not Detected (Not Detectd) SARS-CoV-2 (PCR) Detected A (Not Detectd) Disposition Clinical Impression: Asthma exacerbation, COVID-19 Disposition: ADMITTED IP TO THIS HOSP Condition: Fair Referrals: Fernandez Valles MD [Primary Care Provider] - 1-2 days
[2023-08-30] MEDS ORDERED: methylPREDNISolone SOD SUCCI 40 MG/ML 1 ML VIAL IV STA (18:50)
[2023-08-30] MEDS: ALBUTEROL HFA INHALER INHALATION STA ×2 (20:27→20:28)
[2023-08-30 22:55] LABS: ALT 20 U/L (4-34); AST 29 U/L (14-36); African American GFR (CKD) >90 (>60 ml/min/1.73 sqM); Albumin 3.1 g/dL (3.5-5.0); Alkaline Phosphatase 51 U/L (38-126); Anion Gap 9 mmol/L; Blood Urea Nitrogen 10 mg/dL (7-17); Calcium 7.5 mg/dL (8.4-10.2); Carbon Dioxide 18 mmol/L (22-30); Chloride 112 mmol/L (98-107); Glucose 111 mg/dL (74-99); Non-African American GFR(CKD) 82 (>60 ml/min/1.73 sqM); Potassium 3.5 mmol/L (3.5-5.1); Sodium 139 mmol/L (137-145); Total Bilirubin 0.5 mg/dL (0.2-1.3); Total Protein 5.8 g/dL (6.3-8.2)
[2023-08-30] MEDS ORDERED: ALBUTEROL NEBULIZED 2.5 MG/3 ML INHALATION PRN (22:59)
[2023-08-31] MEDS: SODIUM CHLORIDE 0.9% 1,000 ML IV SCH ×3 (00:52→23:43)
[2023-08-31 01:05] LABS: Basophils % (A) 0 %; Eosinophils # (A) 0.1 k/uL (0-0.7); Eosinophils % (A) 2 %; HCT 42.3 % (34.0-46.0); HGB 13.9 gm/dL (11.4-16.0); Lymphocytes # (A) 0.5 k/uL (1.0-4.8); Lymphocytes % (A) 5 %; MCH 31.2 pg (25.0-35.0); MCHC 32.8 g/dL (31.0-37.0); MCV 95.1 fL (80.0-100.0); Mean Platelet Volume 8.3; Monocytes # (A) 0.2 k/uL (0-1.0); Monocytes % (A) 2 %; Neutrophils # (A) 7.7 k/uL (1.3-7.7); Neutrophils % (A) 91 %; Platelet Count 256 k/uL (150-450); RBC 4.45 m/uL (3.80-5.40); RDW 14.4 % (11.5-15.5); WBC 8.5 k/uL (3.8-10.6)
[2023-08-31 04:24] LABS: Appearance,Urine Clear (Clear); Bilirubin,Urine Negative (Negative); Blood,Urine Negative (Negative); Color,Urine Colorless; Glucose,Urine (UA) Negative (Negative); Ketones,Urine Negative (Negative); Leukocyte Esterase,Urine Negative (Negative); Nitrite,Urine Negative (Negative); PH, Urine 7.5 (5.0-8.0); Protein,Urine Negative (Negative); Specific Gravity,Urine 1.014 (1.001-1.035); Urobilinogen,Urine <2.0 mg/dL (<2.0)
[2023-08-31] MEDS: ACETAMINOPHEN TAB 325 MG TAB PO PRN ×3 (06:55→23:42)
[2023-08-31] MEDS ORDERED: PANTOPRAZOLE 40 MG TABLET PO PRN (07:28)
[2023-08-31] MEDS: FLUTICASONE 110 MCG INHALER INHALATION SCH ×2 (09:27→20:25)
[2023-08-31] MEDS: ALBUTEROL HFA INHALER INHALATION PRN ×4 (09:27→20:25)
[2023-08-31] MEDS: methylPREDNISolone SOD SUCCI 40 MG/ML 1 ML VIAL IV SCH ×2 (09:32→20:11)
[2023-08-31] MEDS: LEVOTHYROXINE 75 MCG TAB PO SCH (11:47)
[2023-08-31] MEDS: guaiFENesin SYRUP 100MG/5ML 200 MG/10 ML CUP PO PRN (14:50)
[2023-08-31] MEDS: HEPARIN SODIUM,PORCINE 5,000 UNIT/ML 1 ML VIAL SQ SCH ×2 (16:32→23:43)
[2023-08-31] MEDS: BACLOFEN 10 MG TAB PO PRN (23:42)
--- NOTE | 2023-09-01 00:56 | P.HPIM ---
History of Present Illness H&P Date: 08/31/23 Chief Complaint: Shortness of breath Patient is a 82-year-old female with a known history of asthma, hyperlipidemia, history of CVA/TIA with no residual weakness, hypothyroidism presents to ER with complaints of worsening shortness of breath.. Patient has been having symptoms for the past 2 weeks. She is also having cough without any sputum production and chest congestion. She has been using breathing treatments at home without much improvement. Patient presented to ER for further evaluation. Otherwise patient denies any fever. No chills. No complaints of nausea or vomiting. Patient did have some abdominal discomfort and diarrhea but not currently. No leg swelling. No headache or dizziness. Chest x-ray showed no significant changes from prior. No acute cardiopulmonary process. COPD changes. Laboratory data showed WBC 8.5 hemoglobin 13.9 and platelets 256 Sodium 139 potassium 3.5 chloride 112 bicarb 18, BUN 10 and creatinine 0.68 Blood sugar 111 calcium 7.5 and albumin 3.1 urinalysis is negative for infection. Patient is tested positive for COVID-19 Review of Systems Constitutional: Patient denies any fever or chills . Patient does have generalized weakness and fatigue. Abdomen: Patient denied any nausea or vomiting or abd. pain Cardiovascular: Patient denies any chest pain or short of breath no palpitations. Respiratory: patient does have cough congestion and no sputum production. Does have shortness of breath Neurologic: Patient denied any numbness or tingling or headache. Musculoskeletal: Patient denies any complaints of joint swelling or deformity. Skin: Negative Psychiatric: Negative Endocrine: No heat or cold intolerance. No recent weight gain. Genitourinary: No dysuria or hematuria. All other 14 point ROS negative except the above Past Medical History Past Medical History: Asthma, CVA/TIA, Hyperlipidemia, Osteoarthritis (OA), Thyroid Disorder Additional Past Medical History / Comment(s): States irreg h/r, ? leaky valve History of Any Multi-Drug Resistant Organisms: None Reported Past Surgical History: Appendectomy, Cholecystectomy, Heart Catheterization, Hysterectomy, Orthopedic Surgery, Tonsillectomy, Tubal Ligation Additional Past Surgical History / Comment(s): Thyroid, R and L knee surgery, cataracts. Past Anesthesia/Blood Transfusion Reactions: Previous Problems w/ Anesthesia Additional Past Anesthesia/Blood Transfusion Reaction / Comment(s): States whole body feels like it is burning up when getting what she believes is called propofol. Past Psychological History: No Psychological Hx Reported Smoking Status: Never smoker Past Alcohol Use History: None Reported Additional Past Alcohol Use History / Comment(s): Patient is a lifelong nonsmoker. No alcohol use. No illicit drug use. Past Drug Use History: None Reported - Past Family History Father Family Medical History: Diabetes Mellitus Additional Family Medical History / Comment(s): Father in his 60s from coronary artery disease. Mother Family Medical History: Cancer Additional Family Medical History / Comment(s): Mother in her 50s from asthma. Brother(s) Additional Family Medical History / Comment(s): Patient has 6 brothers and sisters. One has from MS. One is alive with MS. 2 have asthma. Daughter(s) Additional Family Medical History / Comment(s): Patient has a total of 5 child dolores. One is from diabetes complication. One living has diabetes. Medications and Allergies Home Medications Medication Instructions Recorded Confirmed Type Levothyroxine Sodium [Synthroid] 75 mcg PO QAM 12/26/17 08/31/23 History Acetaminophen Tab [Tylenol] 650 mg PO Q4HR PRN tab 08/27/23 08/31/23 Rx Albuterol Sulfate [Ventolin HFA] 2 puff INHALATION RT-Q6H PRN 08/27/23 08/31/23 History Baclofen 10 mg PO BID PRN 08/27/23 08/31/23 History Budesonide [Pulmicort] 0.5 mg INHALATION RT-BID 08/27/23 08/31/23 History Budesonide/Glycopyr/Formoterol 2 puff INHALATION RT-BID 08/27/23 08/31/23 History [Breztri Aerosphere Inhaler] Furosemide [Lasix] 20 mg PO DAILY PRN 08/27/23 08/31/23 History Naproxen Sodium [Aleve] 220 mg PO BID PRN 08/27/23 08/31/23 History Pantoprazole Sodium [Protonix] 40 mg PO DAILY PRN 08/27/23 08/31/23 History predniSONE See Taper PO DIRECTED 08/31/23 08/31/23 History Allergies Allergy/AdvReac Type Severity Reaction Status Date / Time Iodinated Contrast Media Allergy Anaphylaxis Verified 08/31/23 06:41 [Iodinated Contrast Media - IV Dye] Penicillins Allergy Rash/Hives Verified 08/31/23 06:41 azithromycin AdvReac abdominal Verified 08/31/23 06:41 cramps montelukast sodium AdvReac Cough Verified 08/31/23 06:41 [From Singulair] prednisone AdvReac muscle Verified 08/31/23 06:41 cramping propofol AdvReac burning Verified 08/31/23 06:41 sensation in her body. Physical Exam Vitals: Vital Signs Temp Pulse Pulse Resp BP BP Pulse Ox 08/31/23 07:00 98.0 F 69 16 127/69 94 L 08/31/23 01:41 98.7 F 77 18 120/71 93 L 08/31/23 01:28 98.8 F 77 18 134/75 96 08/31/23 00:00 98.4 F 94 17 134/75 96 08/30/23 18:11 98 F 99 18 139/76 94 L Intake and Output 08/30/23 08/31/23 08/31/23 22:59 06:59 14:59 Intake Total 118 Balance 118 Intake: Oral 118 Other: Voiding Method Toilet # Voids 1 Weight 76.204 kg 76.204 kg PHYSICAL EXAMINATION: Patient is lying in the bed comfortably, no acute distress, awake alert and oriented.. HEENT: Normocephalic. Neck is supple. Pupils reactive. Nostrils clear. Oral cavity is moist. Neck reveals no JVD, carotid bruits, or thyromegaly. CHEST EXAMINATION: Trachea is central. Symmetrical expansion. Bilateral diffuse wheezing. Nonlabored breathing. CARDIAC: Normal S1, S2 with no gallops. No murmurs ABDOMEN: Soft. Bowel sounds present. Nontender. No organomegaly. No abdominal bruits. Extremities: reveal no edema. No clubbing or cyanosis Neurologically awake, alert, oriented x3 with well-coordinated movements. No focal deficits noted Skin: No rash or skin lesions. Psychiatric: Coperative. Nonsuicidal, Musculoskeletal: No joint swelling or deformity. Normal range of motion. Results CBC & Chem 7: 08/31/23 00:48 08/30/23 22:31 Labs: Abnormal Lab Results - Last 24 Hours (Table) 08/30/23 08/30/23 08/31/23 Range/Units 18:29 22:31 00:48 Lymphocytes # 0.5 L (1.0-4.8) k/uL Chloride 112 H (98-107) mmol/L Carbon Dioxide 18 L (22-30) mmol/L Glucose 111 H (74-99) mg/dL Calcium 7.5 L (8.4-10.2) mg/dL Total Protein 5.8 L (6.3-8.2) g/dL Albumin 3.1 L (3.5-5.0) g/dL SARS-CoV-2 (PCR) Detected A (Not Detectd) Microbiology - Last 24 Hours (Table) 08/31/23 04:16 Gram Stain - Preliminary Sputum Thrombosis Risk Factor Assmnt - DVT/VTE Prophylaxis DVT/VTE Prophylaxis: Pharmacologic Prophylaxis ordered - Choose All That Apply Any of the Below Risk Factors Present?: Yes Each Factor Represents 1 point: Abnormal pulmonary function (COPD), Obesity (BMI >25) Other Risk Factors: Yes Each Risk Factor Represents 3 Points: Age 75 years or older Other congenital or acquired thrombophilia - If yes, enter type in comment: No Thrombosis Risk Factor Assessment Total Risk Factor Score: 5 Thrombosis Risk Factor Assessment Level: High Risk Assessment and Plan Assessment: Acute COVID-19 infection Acute asthma exacerbation Generalized weakness, fatigue cough, congestion secondary to infection Hyperlipidemia Osteoarthritis Hypothyroidism DVT and GI prophylaxis with PPI and Lovenox subcu Plan: Patient will be continued on IV hydration with normal saline. Continue with IV Solu-Medrol and albuterol inhalation. Oxygen supplementation as needed. Replace electrolytes. Continue with home medications and symptomatic management for cough. Follow-up closely. Time with Patient: Greater than 30
[2023-09-01] MEDS: guaiFENesin SYRUP 100MG/5ML 200 MG/10 ML CUP PO PRN ×4 (04:14→23:37)
[2023-09-01] MEDS: PANTOPRAZOLE 40 MG TABLET PO SCH (05:38)
[2023-09-01] MEDS: LEVOTHYROXINE 75 MCG TAB PO SCH (05:38)
[2023-09-01] MEDS: ALBUTEROL HFA INHALER INHALATION PRN ×4 (08:20→19:30)
[2023-09-01] MEDS: FLUTICASONE 110 MCG INHALER INHALATION SCH ×2 (08:20→19:30)
[2023-09-01] MEDS: HEPARIN SODIUM,PORCINE 5,000 UNIT/ML 1 ML VIAL SQ SCH ×3 (09:10→23:38)
[2023-09-01] MEDS: LIDOCAINE 4% PATCH TOPICAL SCH (09:11)
[2023-09-01] MEDS: methylPREDNISolone SOD SUCCI 40 MG/ML 1 ML VIAL IV SCH ×3 (09:11→23:38)
[2023-09-01 11:10] LABS: Basophils # (A) 0.03 X 10*3/uL (0.00-0.10); Basophils % (A) 0.3 %; Eosinophils # (A) 0 X 10*3/uL (0.04-0.35); Eosinophils % (A) 0 %; HCT 43.1 % (37.2-46.3); HGB 13.7 g/dL (12.0-15.0); Lymphocytes # (A) 0.93 X 10*3/uL (0.90-5.00); MCH 30.4 pg (27.0-32.0); MCHC 31.8 g/dL (32.0-37.0); MCV 95.8 FL (80.0-97.0); Mean Platelet Volume 10.3 FL (9.5-12.2); Monocytes # (A) 0.61 X 10*3/uL (0.20-1.00); Monocytes % (A) 5.9 %; NRBC Per 100 WBC 0 X 10*3/uL (0.00-0.01); Neutrophils # (A) 8.69 X 10*3/uL (1.80-7.70); Neutrophils % (A) 84.4 %; Platelet Count 320 X 10*3/uL (140-440); RDW 15.7 % (11.5-14.5)
[2023-09-01 11:19] LABS: ALT 22 U/L (8-44); AST 19 U/L (13-35); Albumin 3.9 g/dL (3.8-4.9); Albumin/Globulin Ratio 1.62 Ratio (1.60-3.17); Alkaline Phosphatase 56 U/L (41-126); Blood Urea Nitrogen 16.2 mg/dL (9.0-27.0); Calcium 9.5 mg/dL (8.7-10.3); Carbon Dioxide 24.9 mmol/L (21.6-31.8); Chloride 106 mmol/L (96-109); Globulin 2.4 g/dL (1.6-3.3); Glucose 119 mg/dL (70-110); LDH 314 U/L (120-246); Potassium 4.8 mmol/L (3.5-5.5); Sodium 141 mmol/L (135-145); Total Bilirubin 0.3 mg/dL (0.3-1.2); Total Protein 6.3 g/dL (6.2-8.2)
--- NOTE | 2023-09-01 14:50 | P.PN ---
Subjective Progress Note Date: 09/01/23 Patient is a 82-year-old female with a known history of asthma, hyperlipidemia, history of CVA/TIA with no residual weakness, hypothyroidism presents to ER with complaints of worsening shortness of breath.. Patient has been having symptoms for the past 2 weeks. She is also having cough without any sputum production and chest congestion. She has been using breathing treatments at home without much improvement. Patient presented to ER for further evaluation. Otherwise patient denies any fever. No chills. No complaints of nausea or vomiting. Patient did have some abdominal discomfort and diarrhea but not currently. No leg swelling. No headache or dizziness. Chest x-ray showed no significant changes from prior. No acute cardiopulmonary process. COPD changes. Laboratory data showed WBC 8.5 hemoglobin 13.9 and platelets 256 Sodium 139 potassium 3.5 chloride 112 bicarb 18, BUN 10 and creatinine 0.68 Blood sugar 111 calcium 7.5 and albumin 3.1 urinalysis is negative for infection. Patient is tested positive for COVID-19 09/01/2023 Patient is seen in follow-up today being continued on IV steroids showing some improvement in wheezing although continues to be bronchospastic and wheezing on exam. Patient reports feeling short of breath with exertion and will evaluated for home O2. Case management following and awaiting home O2 assessment to see if patient qualifies for oxygen secondary to Covid as well as asthma acute exacerbation. Patient is currently afebrile with no reports of chest pain or palpitations. Patient reports the tolerating diet with no reported nausea or v omiting. Encourage the patient increase activity as tolerated and up and frequently walking around the room. Review of systems: Constitutional: No reports of fatigue, fever, or chills Cardiovascular: No reports of chest pain or palpitations Respiratory: reports of shortness of breath with exertion and continued cough GI: No reports of nausea, vomiting, or diarrhea : No reports of dysuria or retention Neurovascular: No reports of weakness or numbness All medications have been reviewed PHYSICAL EXAMINATION: Patient is sitting up in bed, awake alert and oriented.. Well-developed, well-nourished, elderly-appearing HEENT: Normocephalic. Neck is supple. Pupils reactive. Nostrils clear. Oral cavity is moist. Neck reveals no JVD, carotid bruits, or thyromegaly. CHEST EXAMINATION: Trachea is central. Symmetrical expansion. Bilateral diffuse wheezing. Nonlabored breathing. CARDIAC: Normal S1, S2 with no gallops. No murmurs ABDOMEN: Soft. Bowel sounds present. Nontender. No organomegaly. No abdominal bruits. Extremities: reveal no edema. No clubbing or cyanosis Neurologically awake, alert, oriented x3 with well-coordinated movements. No focal deficits noted Skin: No rash or skin lesions. Psychiatric: Cooperative. Non-suicidal, Musculoskeletal: No joint swelling or deformity. Normal range of motion. Assessment: Acute COVID-19 infection Acute asthma exacerbation Generalized weakness, fatigue cough, congestion secondary to infection Hyperlipidemia Osteoarthritis Hypothyroidism DVT and GI prophylaxis with PPI and Lovenox subcu Plan: Patient will be continued on IV steroids 40 mg every 8 hours and continued inhaled use Encouraged increased activity as tolerated Patient reports to being short of breath with exertion will evaluated for home O2. Case management notified and was provided a prescription in the event patient qualifies. This was discussed with nursing staff as well Patient is concerned about going home she lives alone and is elderly and feels unsafe with her continued shortness of breath and wheezing. We'll monitor overnight with possible discharge planning in the next 24 hours Continue with home medications and symptomatic management for cough. Follow-up closely. The impression and plan of care has been dictated by Elisha Grubbs, Nurse Practitioner as directed. Dr. Carlton MD I have performed a history and examination and MDM of this patient, discussed the same with the dictator, and agree with the dictator's assessment and plan as written ,documented as a scribe. Based on total visit time, I have performed more than 50% of the visit. Objective - Vital Signs Vital signs: Vital Signs Temp 97.6 F 09/01/23 07:00 Pulse 67 09/01/23 07:00 Resp 16 09/01/23 07:00 BP 145/81 09/01/23 07:00 Pulse Ox 97 09/01/23 07:00 FiO2 Intake & Output 08/31/23 09/01/23 09/01/23 18:59 06:59 18:59 Intake Total 1076 240 Balance 1076 240 Intake: Oral 1076 240 Other: Voiding Method Toilet # Voids 2 2 - Labs CBC & Chem 7: 09/01/23 05:51 09/01/23 05:51 Labs: Microbiology - Last 24 Hours (Table) 08/31/23 04:16 Gram Stain - Preliminary Sputum
[2023-09-02] MEDS: BACLOFEN 10 MG TAB PO PRN (04:19)
[2023-09-02] MEDS: LEVOTHYROXINE 75 MCG TAB PO SCH (06:01)
[2023-09-02] MEDS: PANTOPRAZOLE 40 MG TABLET PO SCH (06:01)
[2023-09-02] MEDS: guaiFENesin SYRUP 100MG/5ML 200 MG/10 ML CUP PO PRN ×2 (06:02→20:41)
[2023-09-02] MEDS: HEPARIN SODIUM,PORCINE 5,000 UNIT/ML 1 ML VIAL SQ SCH ×3 (08:51→23:32)
[2023-09-02] MEDS: LIDOCAINE 4% PATCH TOPICAL SCH (08:58)
[2023-09-02] MEDS: methylPREDNISolone SOD SUCCI 40 MG/ML 1 ML VIAL IV SCH ×3 (08:58→23:29)
[2023-09-02] MEDS: ALBUTEROL HFA INHALER INHALATION PRN ×4 (09:13→18:55)
[2023-09-02] MEDS: FLUTICASONE 110 MCG INHALER INHALATION SCH ×2 (09:13→18:55)
[2023-09-02] MEDS ORDERED: IOPAMIDOL CONTRAST (ORAL USE) VIAL PO PRN (09:36)
[2023-09-02] MEDS ORDERED: BARIUM SULFATE 2% - 450 ML ORAL.SUSP BOTTLE PO ONE ×2 (10:20→13:00)
[2023-09-02 14:06] LABS: African American GFR (CKD) 64 (>60 ml/min/1.73 sqM); Anion Gap 9 mmol/L; Blood Urea Nitrogen 20 mg/dL (7-17); Calcium 9.5 mg/dL (8.4-10.2); Carbon Dioxide 26 mmol/L (22-30); Chloride 104 mmol/L (98-107); Glucose 111 mg/dL (74-99); Non-African American GFR(CKD) 55 (>60 ml/min/1.73 sqM); Potassium 4.5 mmol/L (3.5-5.1); Sodium 139 mmol/L (137-145)
--- NOTE | 2023-09-02 16:07 | CT ---
EXAMINATION TYPE: CT abdomen pelvis wo con DATE OF EXAM: 09/02/2023 HISTORY: right side abdominal pain CT DLP: 852.0 mGycm. Automated Exposure Control for Dose Reduction was Utilized. TECHNIQUE: CT scan of the abdomen and pelvis is performed with oral but without IV contrast. COMPARISON: Prior CT August 02, 2015 FINDINGS: Within the limitations of a non-contrast study, the following observations are made. LUNG BASES: Suspect atrial septal closure device axial image 3 is partially imaged. LIVER/GB: No significant abnormality is appreciated. PANCREAS: There is new 2.6 cm low dense lesion in the distal pancreatic body/tail axial image 19. SPLEEN: No significant abnormality is seen. ADRENALS: No significant abnormality is seen. KIDNEYS: No renal stones or hydronephrosis is seen bilaterally. BOWEL: Diverticula in the left and sigmoid colon. No CT evidence for acute diverticulitis. No abnorma l small or large bowel dilatation. Mild to moderate diffuse colonic fecal prominence GENITAL ORGANS: Uterus is surgically absent. LYMPH NODES: No greater than 1cm abdominal or pelvic lymph nodes are appreciated. OSSEOUS STRUCTURES: There is scoliosis with multilevel spurring and disc space narrowing throughout t he thoracolumbar spine. Multilevel vacuum disc phenomenon and endplate sclerosis is more prominent in the lumbar spine on current study. OTHER: Stable small fat-containing umbilical hernia. IMPRESSION: 1. No renal stones or hydronephrosis is seen bilaterally. [id number] diffuse colonic fecal sienna is or constipation. No bowel obstruction. No acute finding identified to account for patient's sympto ms of right-sided pain. 2. There is 2.6 cm low dense probable cystic lesion in the distal pancreatic body on current study. A dvise nonemergent imaging and lab correlation follow-up to further evaluate and characterize. Cystic neoplasm is in the differential.
[2023-09-02 16:08] VITALS: RESP 16
[2023-09-02] MEDS: KETOROLAC 15 MG/ML 1 ML VIAL IVP SCH ×2 (16:50→20:41)
[2023-09-02] MEDS ORDERED: SENNOSIDES 8.6 MG TAB PO PRN (19:58)
[2023-09-03] MEDS: PANTOPRAZOLE 40 MG TABLET PO SCH (05:37)
[2023-09-03] MEDS: KETOROLAC 15 MG/ML 1 ML VIAL IVP SCH ×3 (05:37→16:19)
[2023-09-03] MEDS: LEVOTHYROXINE 75 MCG TAB PO SCH (05:39)
--- NOTE | 2023-09-03 07:09 | P.PN ---
Subjective Progress Note Date: 09/02/23 Patient is a 82-year-old female with a known history of asthma, hyperlipidemia, history of CVA/TIA with no residual weakness, hypothyroidism presents to ER with complaints of worsening shortness of breath.. Patient has been having symptoms for the past 2 weeks. She is also having cough without any sputum production and chest congestion. She has been using breathing treatments at home without much improvement. Patient presented to ER for further evaluation. Otherwise patient denies any fever. No chills. No complaints of nausea or vomiting. Patient did have some abdominal discomfort and diarrhea but not currently. No leg swelling. No headache or dizziness. Chest x-ray showed no significant changes from prior. No acute cardiopulmonary process. COPD changes. Laboratory data showed WBC 8.5 hemoglobin 13.9 and platelets 256 Sodium 139 potassium 3.5 chloride 112 bicarb 18, BUN 10 and creatinine 0.68 Blood sugar 111 calcium 7.5 and albumin 3.1 urinalysis is negative for infection. Patient is tested positive for COVID-19 09/01/2023 Patient is seen in follow-up today being continued on IV steroids showing some improvement in wheezing although continues to be bronchospastic and wheezing on exam. Patient reports feeling short of breath with exertion and will evaluated for home O2. Case management following and awaiting home O2 assessment to see if patient qualifies for oxygen secondary to Covid as well as asthma acute exacerbation. Patient is currently afebrile with no reports of chest pain or palpitations. Patient reports the tolerating diet with no reported nausea or v omiting. Encourage the patient increase activity as tolerated and up and frequently walking around the room. 09/02/2023 Patient is seen in follow up today and reports she has had diffuse abdominal pain of the right that radiates down her abdomen. Patient continues to report wheezing and cough and does not feel ready to go home. Patient was evaluated for home 02 and did not qualify. Will order ct abdomen to evaluate for this abdominal pain. Patient is afebrile and continues to be on room air. Encouraged increased activity as tolerated and oral intake. Review of systems: Constitutional: No reports of fatigue, fever, or chills Cardiovascular: No reports of chest pain or palpitations Respiratory: reports of shortness of breath with exertion and continued cough GI: No reports of nausea, vomiting, or diarrhea, reports having bowel movements and continued abdominal pain. : No reports of dysuria or retention Neurovascular: No reports of weakness or numbness All medications have been reviewed PHYSICAL EXAMINATION: Patient is lying in bed, awake alert and oriented.. Well-developed, well- nourished, elderly-appearing HEENT: Normocephalic. Neck is supple. Pupils reactive. Nostrils clear. Oral cavity is moist. Neck reveals no JVD, carotid bruits, or thyromegaly. CHEST EXAMINATION: Trachea is central. Symmetrical expansion. Bilateral diffuse wheezing. Nonlabored breathing. CARDIAC: Normal S1, S2 with no gallops. No murmurs ABDOMEN: Soft. Bowel sounds present. Nontender on deep palpation. No organomegaly. No abdominal bruits. Extremities: reveal no edema. No clubbing or cyanosis Neurologically awake, alert, oriented x3 with well-coordinated movements. No focal deficits noted Skin: No rash or skin lesions. Psychiatric: Cooperative. Non-suicidal, Musculoskeletal: No joint swelling or deformity. Normal range of motion. Assessment: Acute COVID-19 infection Acute asthma exacerbation Generalized weakness, fatigue cough, congestion secondary to infection diffuse abdominal pain likely secondary to constipation Hyperlipidemia Osteoarthritis Hypothyroidism DVT and GI prophylaxis with PPI and Lovenox subcu Plan: Patient will be continued on IV steroids 40 mg every 8 hours and continued inhaled use Encouraged increased activity as tolerated Patient reports to having continued wheezing and cough. Tested for home 02 and did not qualify Patient is concerned about going home she lives alone and is elderly and feels unsafe with her continued shortness of breath and wheezing. Patient reports pain all last night in the lower and mid right abdomen and had ct done which is suggestive of constipation. Added miralax and softeners. We'll monitor overnight with possible discharge planning in the next 24 hours Continue with home medications and symptomatic management for cough. The impression and plan of care has been dictated by Elisha Grubbs, Nurse Practitioner as directed. Dr. Carlton MD I have performed a history and examination and MDM of this patient, discussed the same with the dictator, and agree with the dictator's assessment and plan as written ,documented as a scribe. Based on total visit time, I have performed more than 50% of the visit. Objective - Vital Signs Vital signs: Vital Signs Temp 97.4 F L 09/03/23 01:33 Pulse 53 L 09/03/23 01:33 Resp 16 09/03/23 01:33 BP 147/76 09/03/23 01:33 Pulse Ox 97 09/03/23 01:33 FiO2 Intake & Output 09/02/23 09/03/23 09/03/23 18:59 06:59 18:59 Intake Total 118 Balance 118 Intake: Oral 118 Other: Voiding Method Toilet Toilet # Voids 3 2 # Bowel Movements 1 - Labs CBC & Chem 7: 09/01/23 05:51 09/02/23 13:32 Labs: Abnormal Lab Results - Last 24 Hours (Table) 09/02/23 Range/Units 13:32 BUN 20 H (7-17) mg/dL Glucose 111 H (74-99) mg/dL Microbiology - Last 24 Hours (Table) 08/31/23 04:16 Gram Stain - Final Sputum Sputum Culture - Final
[2023-09-03 08:41] LABS: HCT 43.3 % (37.2-46.3); HGB 13.5 g/dL (12.0-15.0); MCH 29.9 pg (27.0-32.0); MCHC 31.2 g/dL (32.0-37.0); Mean Platelet Volume 9.9 FL (9.5-12.2); NRBC Per 100 WBC 0 X 10*3/uL (0.00-0.01); Platelet Count 325 X 10*3/uL (140-440); RBC 4.51 X 10*6/uL (4.10-5.20); RDW 15.4 % (11.5-14.5); WBC 10.83 X 10*3/uL (4.50-10.00)
[2023-09-03 08:42] VITALS: BP 127/78; PULSE 56; TEMP 97.9
[2023-09-03 08:42] LABS: Basophils # (A) 0.03 X 10*3/uL (0.00-0.10); Basophils % (A) 0.3 %; Eosinophils # (A) 0 X 10*3/uL (0.04-0.35); Eosinophils % (A) 0 %; Lymphocytes # (A) 1.13 X 10*3/uL (0.90-5.00); Lymphocytes % (A) 10.4 %; Monocytes # (A) 0.62 X 10*3/uL (0.20-1.00); Monocytes % (A) 5.7 %; Neutrophils # (A) 8.97 X 10*3/uL (1.80-7.70); Neutrophils % (A) 82.9 %
[2023-09-03 08:49] LABS: BUN/Creat Ratio 20.08 Ratio (12.00-20.00); Blood Urea Nitrogen 24.1 mg/dL (9.0-27.0); Carbon Dioxide 26.6 mmol/L (21.6-31.8); Chloride 106 mmol/L (96-109); Glucose 117 mg/dL (70-110); Potassium 4.7 mmol/L (3.5-5.5); Sodium 142 mmol/L (135-145)
[2023-09-03 08:50] LABS: Calcium 9.5 mg/dL (8.7-10.3)
[2023-09-03] MEDS ORDERED: polyethylene glycoL 3350 17 GM POWD.PACK PO SCH (09:00)
[2023-09-03] MEDS: ALBUTEROL HFA INHALER INHALATION PRN (09:18)
[2023-09-03] MEDS: FLUTICASONE 110 MCG INHALER INHALATION SCH (09:18)
[2023-09-03] MEDS: HEPARIN SODIUM,PORCINE 5,000 UNIT/ML 1 ML VIAL SQ SCH ×2 (10:06→16:18)
[2023-09-03] MEDS: methylPREDNISolone SOD SUCCI 40 MG/ML 1 ML VIAL IV SCH ×2 (10:49→16:19)
[2023-09-03] MEDS: LIDOCAINE 4% PATCH TOPICAL SCH (10:49)
--- NOTE | 2023-09-03 12:37 | US ---
EXAMINATION TYPE: US venous doppler duplex LE LT DATE OF EXAM: 09/03/2023 12:28 PM COMPARISON: US CLINICAL INDICATION: Female, 82 years old with history of swelling, left leg pain; Left leg tendernes s, Covid SIDE PERFORMED: Left TECHNIQUE: The lower extremity deep venous system is examined utilizing real time linear array sonog fanny with graded compression, doppler sonography and color-flow sonography. VESSELS IMAGED: Common Femoral Vein Deep Femoral Vein Greater Saphenous Vein * Femoral Vein Popliteal Vein Small Saphenous Vein * Proximal Calf Veins (* superficial vessels) Left Leg: Negative for DVT IMPRESSION: Grayscale, color doppler, spectral doppler imaging performed of the deep veins of the lo wer extremities. There is normal flow, compressibility, vascular waveforms.
--- NOTE | 2023-09-05 10:58 | P.DS ---
Providers Date of admission: 08/30/23 23:01 Expected date of discharge: 09/03/23 Attending physician: Alex Chan Primary care physician: Fernandez Valles [place] [facility] Course: Final diagnosis Acute COVID-19 infection Acute asthma exacerbation left leg pain, negative for DVT Generalized weakness, fatigue cough, congestion secondary to infection diffuse abdominal pain likely secondary to constipation Hyperlipidemia Osteoarthritis Hypothyroidism DVT and GI prophylaxis Discharge disposition Patient is being discharged in a stable condition with guarded prognosis to home. Patient will follow-up with Dr. Valles in the outpatient setting upon discharge. Patient is to continue with quick prednisone taper and close outpatient follow-up with pulmonary as scheduled. Total time taken is greater than 35 minutes. Hospital course This is a 82-year-old female who was recently admitted with increased shortness of breath with history of asthma and also found to be COVID-19 infection positive. Patient was not requiring oxygen during this hospitalization and was maintained on IV steroids along with albuterol inhaler. Patient was evaluated for home oxygen and did not qualify. Patient also reporting some right side quadrant and abdominal pain underwent CT imaging which was suggestive of constipation and was given bowel regimen having bowel movements. Patient instructed to follow-up with primary care provider along with GI in the outp atient setting as there was also a cyst noted on the pancreatic head and patient have further outpatient testing. patient reported some left leg pain and swelling and underwent venous Doppler which was negative for DVT. Currently no reports of chest pain, shortness of breath, or palpitations. Patient is afebrile. No reports of nausea or vomiting and patient is tolerating diet. Patient will be discharged home today. High risk for readmission given patient's fear of going home living alone at her age and has had multiple ER visits and hospitalizations most recently. Patient has been instructed to follow-up with primary care provider this week. Physical exam: Gen: This is a 82-year-old female who is awake, alert and oriented 3, well- developed, well-nourished HEENT: Head is atraumatic, normocephalic. Pupils equal, round. Sclerae is anicteric. NECK: Supple. No JVD. No lymphadenopathy. No thyromegaly. LUNGS: Clear to auscultation. forced scattered expiratory wheezes noted on occas ion. No intercostal retractions. HEART: Regular rate and rhythm. No murmur. ABDOMEN: Soft. Bowel sounds are present. No masses. No tenderness. EXTREMITIES: No pedal edema. No calf tenderness. NEUROLOGICAL: Patient is awake, alert and oriented x3. Cranial nerves 2 through 12 are grossly intact. Please refer to medication reconciliation sheet for a list of medications. The impression and plan of care has been dictated by Elisha Grubbs, Nurse Practitioner as directed. Dr. Melissa MD I have performed a history and examination and MDM of this patient, discussed the same with the dictator, and agree with the dictator's assessment and plan as written ,documented as a scribe. Based on total visit time, I have performed more than 50% of the visit. Patient Condition at Discharge: Fair Plan - Discharge Summary New Discharge Prescriptions: New predniSONE 10 mg PO DIRECTED #16 tab Lidocaine 4% Patch 1 patch TOPICAL DAILY #30 patch polyethylene glycoL 3350 [Miralax] 17 gm PO DAILY #30 packet guaiFENesin [Mucinex] 600 mg PO Q12H 10 Days #20 tab Sennosides [Senokot] 8.6 mg PO HS PRN #20 tab PRN Reason: Constipation Continue Levothyroxine Sodium [Synthroid] 75 mcg PO QAM Albuterol Sulfate [Ventolin HFA] 2 puff INHALATION RT-Q6H PRN PRN Reason: Shortness Of Breath Naproxen Sodium [Aleve] 220 mg PO BID PRN PRN Reason: Pain Pantoprazole Sodium [Protonix] 40 mg PO DAILY PRN PRN Reason: gerd Furosemide [Lasix] 20 mg PO DAILY PRN PRN Reason: Edema Budesonide [Pulmicort] 0.5 mg INHALATION RT-BID Budesonide/Glycopyr/Formoterol [Breztri Aerosphere Inhaler] 2 puff INHALATION RT-BID Acetaminophen Tab [Tylenol] 650 mg PO Q4HR PRN tab PRN Reason: Mild Pain Or Fever > 100.5 Changed Baclofen 10 mg PO DAILY PRN #0 PRN Reason: Muscle Pain Discontinued predniSONE See Taper PO DIRECTED Discharge Medication List Levothyroxine Sodium [Synthroid] 75 mcg PO QAM 12/26/17 [History] Acetaminophen Tab [Tylenol] 650 mg PO Q4HR PRN tab 08/27/23 [Rx] Albuterol Sulfate [Ventolin HFA] 2 puff INHALATION RT-Q6H PRN 08/27/23 [History] Budesonide [Pulmicort] 0.5 mg INHALATION RT-BID 08/27/23 [History] Budesonide/Glycopyr/Formoterol [Breztri Aerosphere Inhaler] 2 puff INHALATION RT-BID 08/27/23 [History] Furosemide [Lasix] 20 mg PO DAILY PRN 08/27/23 [History] Naproxen Sodium [Aleve] 220 mg PO BID PRN 08/27/23 [History] Pantoprazole Sodium [Protonix] 40 mg PO DAILY PRN 08/27/23 [History] Baclofen 10 mg PO DAILY PRN #0 09/03/23 [Rx] Lidocaine 4% Patch 1 patch TOPICAL DAILY #30 patch 09/03/23 [Rx] Sennosides [Senokot] 8.6 mg PO HS PRN #20 tab 09/03/23 [Rx] guaiFENesin [Mucinex] 600 mg PO Q12H 10 Days #20 tab 09/03/23 [Rx] polyethylene glycoL 3350 [Miralax] 17 gm PO DAILY #30 packet 09/03/23 [Rx] predniSONE 10 mg PO DIRECTED #16 tab 09/03/23 [Rx] Follow up Appointment(s)/Referral(s): Devonte Sheldon MD [STAFF PHYSICIAN] - 1 Week Fernandez Valles MD [Primary Care Provider] - 1-2 days Patient Instructions/Handouts: Asthma (DC), COVID-19 (Coronavirus Disease 2019) (DC) Activity/Diet/Wound Care/Special Instructions: Activity Limited until follow-up Continue with medications as prescribed Follow-up with pulmonary outpatient Follow-up primary care provider on discharge Continue to elevate lower extremity swelling rest Continue bowel regimen medications and hold if having loose stools Discharge Disposition: HOME SELF-CARE
== END 2023-09-03 16:25 | disposition home or self-care (01) | DRG 178 ==
LOC: EC 17:58 → 6NMEDSUR 23:01 → OBSVTOIN 09-02 11:25
PROVIDERS: ADMIT Hospitalist; ATTEND Hospitalist
DX: U07.1 COVID-19 (principal); J45.901 Unspecified asthma with (acute) exacerbation; E78.5 Hyperlipidemia, unspecified; E03.9 Hypothyroidism, unspecified; K59.00 Constipation, unspecified; M19.90 Unspecified osteoarthritis, unspecified site; R09.02 Hypoxemia; M79.605 Pain in left leg; Z79.890 Hormone replacement therapy; Z79.51 Long term (current) use of inhaled steroids; Z79.899 Other long term (current) drug therapy; Z86.73 Personal history of transient ischemic attack (TIA), and cerebral infarction without residual deficits; Z88.0 Allergy status to penicillin; Z88.8 Allergy status to other drugs, medicaments and biological substances; Z88.1 Allergy status to other antibiotic agents; Z91.041 Radiographic dye allergy status
CPT/HCPCS: 36415; 71046; 74176; 80048; 80053; 81003; 83615; 85025; 86140; 87070; 87205; 87449; 87636; 94640; 96361; 96374; 99285

== ENCOUNTER → 2023-10-25 | Outpatient (CLI) | payer MEDICARE, BC ==
--- NOTE | 2023-10-27 09:40 | MR ---
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 TECHNIQUE: Multiplanar multi-sequence imaging was performed without contrast. Post contrast imaging was performed. Post IV contrast subtraction images were also submitted for review. IV Contrast: 8 cc Gadobutrol FINDINGS: LOWER CHEST: Right posterior fat-containing Bochdalek hernia. ABDOMEN Liver: No evidence for hepatic steatosis or cirrhosis. Gallbladder and Bile ducts: No evidence for ductal dilation, or biliary stricture or evidence of chol edocholithiasis. The gallbladder is within normal limits. Pancreas: Mildly complex pancreatic tail mass is predominantly higher T2 signal with low curvilinear T2 signal within measuring up to 28 x 25 mm and demonstrates heterogenous postcontrast enhancement. Spleen: Normal for size. Adrenal glands: Unremarkable. Kidneys: No evidence for obstructive uropathy. No suspicious renal masses. Stomach and Bowel: Scattered colonic diverticula. No evidence for bowel wall thickening or evidence f or obstruction. Peritoneum: No evidence of pneumoperitoneum or free fluid. Vasculature: No aortic aneurysm. Musculoskeletal: The osseous structures appear intact. Scoliosis changes in the spine. Lymph Nodes: No gross evidence for lymphadenopathy. Abdominal wall: Unremarkable. IMPRESSION: 1. Pancreatic tail mass concerning for pancreatic cystic neoplasm such as serous cyst adenoma/adenoc arcinoma versus mucinous cystic neoplasm versus other. She sampling recommended. 2. Colonic diverticulosis
== END | disposition home or self-care (01) ==
LOC: RADMRIMAIN 13:50
PROVIDERS: ATTEND Internal Medicine Gastroenterology
DX: K57.30 Diverticulosis of large intestine without perforation or abscess without bleeding (principal); K86.2 Cyst of pancreas; K86.89 Other specified diseases of pancreas
CPT/HCPCS: 74183; A9585

== ENCOUNTER → 2023-12-27 | Outpatient (CLI) | payer MEDICARE, BC ==
[2023-12-27 11:35] VITALS: BP 125/76; PULSE 149; RESP 16; TEMP 96.6
--- NOTE | 2023-12-27 14:11 | P.PAINPG ---
PQRS Measure Charge Sheet Comment: HISTORY OF PRESENT ILLNESS: An 83 yr old female presents today w severe and chronic L knee pain secondary to OA for evaluation. Pt states pain level is provoked at 7 /10 in intensity, constant, localized in the L knee , sharp in character w/o shooting pain. Pain is provoked by walking. Pain is alleviated by PT x 1 visit which she is currently in, medications, topical, reclining and rest. Interventional procedures include Medications include Tyl, Ibu, Lidoderm 5% REVIEW OF ORGAN SYSTEMS: CONSTITUTIONAL: No fevers or chills. No recent weight loss. NEUROLOGICAL: + numbness and tingling along the distal extremities. No seizure disorders or headaches. MUSCULOSKELETAL: + pain PSYCHIATRIC: Denies current depression or suicidal thoughts. Physical Examinations : Constitutional : Cooperative , not in acute distress . Neurologic : Cranial nerve II to XII intact. No focal neurological deficits. Psychiatric : alert & oriented x 3. Matching mood & appropriate affect. Judgment & insight intact. Musculoskeletal : Cervical Spine Motor strength in the deltoid and biceps: Normal right side. Normal Left side Motor strength biceps and the wrist extensors: Normal right side . Normal left side Motor strength in the triceps muscle: Normal right side. Normal left side Deep tendon reflexes: Normal at the biceps. Normal at Brachioradialis. Normal at triceps Vertebral body tenderness to deep palpation over Cervical facet loading test: positive bilaterally Spurling test: positive bilaterally Neck distraction test: positive bilaterally Deanna sign: positive bilaterally Lumbar spine Diffuse L knee TTP Motor strength lower extremities ,thigh and legs 5/5 Right side , 5/5 Left side Deep tendon reflexes : Normal Knee Jerk. Normal Ankle Jerk Vertebral body tenderness over Mejia Test positive Lumbar facet Loading Test: positive Right / positive Left Range of motion of the lumbar spine Flexion 30 degrees, extension 10 degrees Straight Leg Raise test: Left/ Right positive at degree Frank test: positive right / positive left. Severe tenderness over the Sacroiliac joint on the Right / Left sides Gaenslen test: positive bilaterally Seated flexion test: positive bilaterally. Sacral spine : Severe tenderness over the Sacroiliac joint: right side / left side Range of motion: Flexion of the lumbar spine <60 degrees Range of motion: Extension of the lumbar spine <20 degrees Gaenslen's Test positive Marvin's Test positive Frank test: positive right side / left side Thigh Thrust Test Sacral Thrust Test Imaging: None on file Assessment/ Plan : L knee OA s/p Knee Replacement Recommendation of follow up after completion of PT in 6 wks. Previously not interested in narcotic medication mgmt, but currently not interested in medications that cause ulcers. Avoids steroids due to adverse reactions from steroids administered fr history of asthma exacerbation. I have spent greater than 30 minutes on patient care today. Dr Correa was available by phone for the evaluation of this patient. The time was used to review the medical records including relevant urine studies and Prescription history (MAPs), review of the available imaging, evaluation and examination of the patient, coordination of care with the medical staff and if applicable referring physicians, as well as creation of the medical record PQRS Narrative: Smoking Status Never smoker Hx Alcohol Use (MH) Yes: OCCASIONAL Home Medications: Ambulatory Orders Levothyroxine Sodium [Synthroid] 75 mcg PO QAM 12/26/17 Acetaminophen Tab [Tylenol] 650 mg PO Q4HR PRN tab 08/27/23 Albuterol Sulfate [Ventolin HFA] 2 puff INHALATION RT-Q6H PRN 08/27/23 Budesonide [Pulmicort] 0.5 mg INHALATION RT-BID 08/27/23 Budesonide/Glycopyr/Formoterol [Breztri Aerosphere Inhaler] 2 puff INHALATION RT-BID 08/27/23 Furosemide [Lasix] 20 mg PO DAILY PRN 08/27/23 Naproxen Sodium [Aleve] 220 mg PO BID PRN 08/27/23 Pantoprazole Sodium [Protonix] 40 mg PO DAILY PRN 08/27/23 Baclofen 10 mg PO DAILY PRN #0 09/03/23 Lidocaine 4% Patch 1 patch TOPICAL DAILY #30 patch 09/03/23 Sennosides [Senokot] 8.6 mg PO HS PRN #20 tab 09/03/23 guaiFENesin [Mucinex] 600 mg PO Q12H 10 Days #20 tab 09/03/23 polyethylene glycoL 3350 [Miralax] 17 gm PO DAILY #30 packet 09/03/23 predniSONE 10 mg PO DIRECTED #16 tab 09/03/23 Controlled Substance Measures - Controlled Substance Measures Is patient prescribed a controlled substance at discharge?: No
== END ==
LOC: PNWHC3 10:39
PROVIDERS: ATTEND Specialist
DX: M17.12 Unilateral primary osteoarthritis, left knee (principal); G89.29 Other chronic pain; Z96.652 Presence of left artificial knee joint; Z91.041 Radiographic dye allergy status; Z88.0 Allergy status to penicillin; Z88.1 Allergy status to other antibiotic agents; Z88.8 Allergy status to other drugs, medicaments and biological substances
CPT/HCPCS: 99211

== ENCOUNTER 2024-04-20 10:42 | Emergency (ER) | payer MEDICARE, BC ==
[2024-04-20] MEDS ORDERED: ACET/COD 300 MG/30 MG STARTER PACK 6 TAB BTL PO ONE (12:30)
--- NOTE | 2024-05-17 08:31 | XR ---
Mary CraneraCarolin ID: [id number] : 1940 EXAMINATION TYPE: XR tibia fibula 2 views LT DATE OF EXAM: 04/20/2024 Comparison: None Clinical History: 82-year-old female fall 3 weeks ago Findings: Small knee joint effusion. The patient's left total knee arthroplasty appears well seated without rep resenting fracture. Vascular calcifications. No acute fracture identified. Small posterior plantar he el spurs. Impression: 1. Small knee joint effusion but otherwise, uncomplicated left total knee arthroplasty. 2. Vascular calcifications suggesting underlying chronic kidney disease or diabetes. Clinically corre late. 3. No acute osseous abnormality seen. Small heel spurs.
--- NOTE | 2024-05-17 08:31 | XR ---
Rhoda Crane L ID: [id number] : 1940 EXAMINATION TYPE: XR elbow complete 3 views LT DATE OF EXAM: 04/20/2024 Comparison: None Clinical History: 83-year-old female pain after fall 3 weeks ago Findings: No elbow joint effusion. 4 mm calcific focus at the medial and distal triceps insertion, possible fra gmented spur or enthesopathy. Given suggestion of some mild overlying soft tissue swelling, correlate to exclude calcific tendinitis. No acute fracture, subluxation, dislocation. Impression: Either sequela of old injury versus possible calcific tendinitis of the medial distal triceps inserti on. Clinically correlate. No acute osseous abnormality seen.
== END 2024-04-20 12:40 | disposition home or self-care (01) ==
LOC: EC 10:42
CPT/HCPCS: 99283

== ENCOUNTER → 2024-04-25 | Outpatient (CLI) | payer MEDICARE, BC ==
--- NOTE | 2024-04-25 14:53 | MR ---
EXAMINATION TYPE: MR pancreas wo/w con DATE OF EXAM: 04/25/2024 12:04 PM INDICATION: Patient age:Female; 83 years old; Reason for study: K86.2 CYST OF PANCREAS; PHH. COMPARISON: MR pancreas 10/25/2023, CT scan pelvis 09/02/2023 TECHNIQUE: Multiplanar multi-sequence imaging was performed without and with IV contrast. The patien t was given 7 ccs of Gadavist intravenously and dynamic imaging was performed. Post IV contrast subtr action images were also submitted for review. FINDINGS: LOWER CHEST: Fat filled right posterior Bochdalek hernia redemonstrated. ABDOMEN Liver: Unremarkable. Gallbladder and Bile ducts: Unremarkable. Pancreas: Redemonstration of complex pancreatic tail mass which is predominantly high T2 signal with low curvilinear T2 signal within. It measures 3.0 x 2.8 x 3.3 cm, previously 2.8 x 2.5 x 3.1 cm (seri es 601, image 41). This demonstrates heterogenous postcontrast enhancement again. No pancreatic duct dilatation. No new hepatic lesions identified. Spleen: Unremarkable. Adrenal glands: Unremarkable. Kidneys: Unremarkable. Stomach and Bowel: Distal colonic diverticulosis. No evidence for obstruction. Peritoneum: No evidence of pneumoperitoneum, free fluid, or adenopathy. Vasculature: Unremarkable. No aortic aneurysm. Abdominal wall: Unremarkable. Musculoskeletal: The osseous structures appear intact. Scoliosis changes in the spine. IMPRESSION: Marginal increase in size of 3.3 cm of enhancing pancreatic tail cystic mass. Etiology is again inclu ded serous cystadenoma/adenocarcinoma versus mucinous cystic neoplasm versus other. Tissue sampling i s again recommended if not already performed.
== END | disposition home or self-care (01) ==
LOC: RADMRIMAIN 09:53
PROVIDERS: ATTEND Internal Medicine Gastroenterology
DX: K86.2 Cyst of pancreas
CPT/HCPCS: 74183

== ENCOUNTER → 2024-05-15 | Outpatient (CLI) | payer MEDICARE, BC ==
[2024-05-15 11:36] VITALS: BP 133/80; PULSE 70; RESP 16; TEMP 97.8
--- NOTE | 2024-05-15 15:12 | P.PAINPG ---
PQRS Measure Charge Sheet Comment: A 83 yr old female with a history of severe and chronic LBP secondary to radiculopathy, spondylosis with facet arthropathy without myelopathy presents today for evaluation. Pain level is provoked at 10 /10 in intensity, constant, predominantly axial, localized in the L lumbar spine, sharp in character w occ asional shooting towards the L knee and toes. Pain is provoked by over activity. Pain is alleviated with PT x 6 wks from Jan - Mar 2024, physician guided HEP stretches daily since Mar 2024, medications, topical, heat, ice, repositioning and rest. Interventional pain procedures completed include DENIES Patient is currently on Aleve, Icy-Hot, Lidocaine Patient denies any side effects of the medication(s), denies excessive drowsiness or sleepiness, denies suicidal ideation and reports that the current pain medication is helping to control the pain and improve activities of daily living. Patient denies any motor or sensory deficits. Patient denies any fever or night sweats, denies any change in the bowel movements or urination. Physical Examination: -Constitutional: Cooperative. Not in acute distress . - Neurologic: Cranial nerve II to XII intact. No focal neurological deficits. - Psychatric: Alert & oriented x 3. Matching mood & appropriate affect. Judgment and insight intact. - Musculoskeletal: Cervical spine: Muscle bulk/ tone/ strength in the bilateral upper extremities normal Vertebral body tenderness to palpation over Spurling test positive Distraction test positive Facet loading test positive TTP Thoracic spine Muscle bulk / tone/ strength in the bilateral paraspinal muscles normal Vertebral body tender to palpation over Facet loading test positive TTP Lumbar spine: Motor bulk/ tone/ strength lower extremities , thigh and legs : 5/5 Deep tendon reflexes : Normal Knee Jerk. Normal Ankle Jerk . Vertebral body tenderness to palpation over L5 Mejia Test positive Lumbar Facet Loading Test positive Straight Leg Raise: positive at 30 degrees right side/ left side Gaenslen's Test positive Sacral spine : Severe tenderness over the Sacroiliac joint: right side / left side Range of motion: Flexion of the lumbar spine <60 degrees Range of motion: Extension of the lumbar spine <20 degrees Gaenslen's Test positive right side / left side Frank test: positive right side / left side Thigh Thrust Test positive right side / left side Sacral Thrust Test positive right side / left side Assessment and plan: Chronic LBP secondary to lumbar radiculopathy, spondylosis with facet arthropathy without myelopathy Recommendation of MRI non contrast lumbar spine M54.16. All questions answered. I have spent less than 30 minutes on patient care today. Dr Correa was available by phone for the evaluation of this patient. The time was used to review the medical records including relevant urine studies and Prescription history (MAPs), review of the available imaging, evaluation and examination of the patient, coordination of care with the medical staff and if applicable referring physicians, as well as creation of the medical record PQRS Narrative: Smoking Status Never smoker Hx Alcohol Use (MH) Yes: OCCASIONAL Home Medications: Ambulatory Orders Levothyroxine Sodium [Synthroid] 75 mcg PO QAM 12/26/17 Acetaminophen Tab [Tylenol] 650 mg PO Q4HR PRN tab 08/27/23 Albuterol Sulfate [Ventolin HFA] 2 puff INHALATION RT-Q6H PRN 08/27/23 Budesonide [Pulmicort] 0.5 mg INHALATION RT-BID 08/27/23 Budesonide/Glycopyr/Formoterol [Breztri Aerosphere Inhaler] 2 puff INHALATION RT-BID 08/27/23 Furosemide [Lasix] 20 mg PO DAILY PRN 08/27/23 Naproxen Sodium [Aleve] 220 mg PO BID PRN 08/27/23 Pantoprazole Sodium [Protonix] 40 mg PO DAILY PRN 08/27/23 Baclofen 10 mg PO DAILY PRN #0 09/03/23 Lidocaine 4% Patch 1 patch TOPICAL DAILY #30 patch 09/03/23 Sennosides [Senokot] 8.6 mg PO HS PRN #20 tab 09/03/23 guaiFENesin [Mucinex] 600 mg PO Q12H 10 Days #20 tab 09/03/23 polyethylene glycoL 3350 [Miralax] 17 gm PO DAILY #30 packet 09/03/23 predniSONE 10 mg PO DIRECTED #16 tab 09/03/23 Controlled Substance Measures - Controlled Substance Measures Is patient prescribed a controlled substance at discharge?: No
== END ==
LOC: PNWHC3 11:12
PROVIDERS: ATTEND Specialist
DX: M51.36 Other intervertebral disc degeneration, lumbar region (principal); M51.26 Other intervertebral disc displacement, lumbar region; M54.16 Radiculopathy, lumbar region; M47.816 Spondylosis without myelopathy or radiculopathy, lumbar region; Z88.1 Allergy status to other antibiotic agents; Z88.0 Allergy status to penicillin; Z91.018 Allergy to other foods; Z88.8 Allergy status to other drugs, medicaments and biological substances
CPT/HCPCS: 99211

== ENCOUNTER → 2024-05-18 | Outpatient (CLI) | payer MEDICARE, BC ==
--- NOTE | 2024-05-18 20:43 | MR ---
EXAMINATION TYPE: MR lumbar spine wo con DATE OF EXAM: 05/18/2024 COMPARISON: HISTORY: Abnormal MRI ABD, left leg pain CONTRAST: 0 mL intravenous . TECHNIQUE: Multiplanar, multisequence images of the lumbar spine were acquired. FINDINGS: Degenerative disc change present L3-4 through L5-S1. Cord terminates at L1. L5-S1: Broad-based disc bulge is present with mild anterior thecal sac compression. Facet hypertrophy is present. No spinal canal stenosis is present. Moderate to severe bilateral foraminal narrowing gr eater on the right is present at this level. L4-L5: A based disc bulge is present with moderate anterior thecal sac compression. Facet hypertrophy is moderate posterior lateral thecal sac compression. Severe spinal canal stenosis from spectrums ar e present. Severe right and very severe left foraminal stenosis present. L3-L4: There is loss of disc height normal. Mild anterior thecal sac compression. Facet hypertrophy p rominent posterior lateral thecal sac compression. Spinal canal stenosis is present. Moderate right a nd severe left foraminal stenosis is present. L2-L3: Left paracentral disc bulge is present with anterior thecal sac compression. Facet hypertrophy is posterior lateral thecal sac compression. No AP spinal canal stenosis present. There appears to b e bilateral severe foraminal narrowing. L1-L2: No significant disc bulge or disc herniation. No spinal canal stenosis. No foraminal stenosi s. Mild facet hypertrophy is present. T12-L1: No significant disc bulge or disc herniation. No spinal canal stenosis. No foraminal stenos is. . Disc hydration is preserved T12-L1, L1-2. Remaining disc levels redislocated narrowing. IMPRESSION: 1. Spinal canal stenosis due to facet hypertrophy and ligamentum flavum laxity disc bulging present L 4-5 and to a lesser degree L3-4. 2. Very severe foraminal narrowing left L4-5. Additional Severe foraminal stenosis present bilaterall y L2-3, on the left at L3-4 and on the right at L4-5 and L5-S1. 3. Degenerative disc changes L2-3 through L5-S1. [facility], , 05/18/2024 8:41 PM
== END | disposition home or self-care (01) ==
LOC: RADMRIMAIN 11:11
PROVIDERS: ATTEND Specialist
DX: M54.16 Radiculopathy, lumbar region
CPT/HCPCS: 72148

== ENCOUNTER → 2024-06-05 | Outpatient (CLI) | payer MEDICARE, BC ==
[2024-06-05 12:36] VITALS: BP 109/67; PULSE 82; RESP 16
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
== END | disposition home or self-care (01) ==
LOC: PNWHC3 09:25
PROVIDERS: ATTEND Specialist
DX: M47.26 Other spondylosis with radiculopathy, lumbar region (principal); M48.061 Spinal stenosis, lumbar region without neurogenic claudication; Z91.041 Radiographic dye allergy status; Z88.0 Allergy status to penicillin; Z88.1 Allergy status to other antibiotic agents; Z88.8 Allergy status to other drugs, medicaments and biological substances
CPT/HCPCS: 99211

== ENCOUNTER → 2024-10-02 | Outpatient (CLI) | payer MEDICARE, BC ==
[2024-10-02 16:52] LABS: Basophils # (A) 0.02 X 10*3/uL (0.00-0.10); Basophils % (A) 0.4 %; Eosinophils # (A) 0 X 10*3/uL (0.04-0.35); Eosinophils % (A) 0 %; HCT 45.8 % (37.2-46.3); HGB 14.5 g/dL (12.0-15.0); Lymphocytes # (A) 1.62 X 10*3/uL (0.90-5.00); Lymphocytes % (A) 35.7 %; MCHC 31.7 g/dL (32.0-37.0); MCV 94.8 FL (80.0-97.0); Mean Platelet Volume 10.1 FL (9.5-12.2); Monocytes # (A) 0.41 X 10*3/uL (0.20-1.00); NRBC Per 100 WBC 0 X 10*3/uL (0.00-0.01); Neutrophils # (A) 2.48 X 10*3/uL (1.80-7.70); Neutrophils % (A) 54.7 %; Platelet Count 372 X 10*3/uL (140-440); RBC 4.83 X 10*6/uL (4.10-5.20); RDW 14.2 % (11.5-14.5); WBC 4.54 X 10*3/uL (4.50-10.00)
[2024-10-02 18:34] LABS: ALT 21 U/L (8-44); AST 27 U/L (13-35); Albumin 4.1 g/dL (3.8-4.9); Albumin/Globulin Ratio 1.78 Ratio (1.60-3.17); Alkaline Phosphatase 65 U/L (41-126); BUN/Creat Ratio 11.09 Ratio (12.00-20.00); Blood Urea Nitrogen 12.2 mg/dL (9.0-27.0); Calcium 9.6 mg/dL (8.7-10.3); Carbon Dioxide 26.5 mmol/L (21.6-31.8); Chloride 106 mmol/L (96-109); Globulin 2.3 g/dL (1.6-3.3); Glucose 89 mg/dL (70-110); Potassium 4.3 mmol/L (3.5-5.5); Sodium 142 mmol/L (135-145); Total Bilirubin 0.4 mg/dL (0.3-1.2); Total Protein 6.4 g/dL (6.2-8.2)
== END | disposition home or self-care (01) ==
LOC: LABWHC1 10:29
PROVIDERS: ATTEND Internal Medicine Critical Care Medicine
DX: J45.901 Unspecified asthma with (acute) exacerbation (principal)
CPT/HCPCS: 36415; 80053; 85025

== ENCOUNTER → 2024-11-24 | Outpatient (CLI) | payer MEDICARE, BC ==
--- NOTE | 2024-11-24 19:31 | MR ---
EXAMINATION TYPE: MR pancreas wo/w con DATE OF EXAM: 11/24/2024 4:32 PM COMPARISON: MR 04/25/2024, 10/25/2023 CLINICAL INDICATION: Female, 84 years old with history of K86.2 CYST OF PANCREAS; PHH, F/U, Pancreati c cyst, left side abdominal pain. TECHNIQUE: Multiplanar multi-sequence imaging was performed without contrast. Post contrast imaging was performed. Post IV contrast subtraction images were also submitted for review. IV Contrast: 7 mL Gadobutrol FINDINGS: LOWER CHEST: Fat filled right posterior Bochdalek hernia redemonstrated. ABDOMEN Liver: Unremarkable. Gallbladder and Bile ducts: Unremarkable. Pancreas: Redemonstration of complex pancreatic tail mass which is predominantly high T2 signal with low curvilinear T2 signal within. It measures 32 x 29 x 26 mm previously 28 x 27 x 25 cm. This demons trates heterogenous postcontrast enhancement again. No pancreatic duct dilatation. No new hepatic les ions identified. Spleen: Unremarkable. Adrenal glands: Unremarkable. Kidneys: Unremarkable. Stomach and Bowel: Distal colonic diverticulosis. No evidence for obstruction. Peritoneum: No evidence of pneumoperitoneum, free fluid, or adenopathy. Vasculature: Unremarkable. No aortic aneurysm. Abdominal wall: Unremarkable. Musculoskeletal: The osseous structures appear intact. Scoliosis changes in the spine. Mild degenerat ion changes of the spine with osteophyte formation and joint space narrowing. IMPRESSION: Again, fractional increase in size of 3.3 cm of enhancing pancreatic tail cystic mass. Etiology is ag ain included serous cystadenoma/adenocarcinoma versus mucinous cystic neoplasm versus other. Tissue s ampling is again recommended if not already performed. The gastric wall immediately abuts this lesion possibly making it amenable to transgastric biopsy. [facility], , 11/24/2024 7:28 PM
== END | disposition home or self-care (01) ==
LOC: RADMRIMAIN 15:33
PROVIDERS: ATTEND Internal Medicine Gastroenterology
DX: K86.2 Cyst of pancreas (principal)
CPT/HCPCS: 74183; A9585

== ENCOUNTER → 2025-03-05 | Outpatient (CLI) | payer MEDICARE, BC ==
--- NOTE | 2025-03-05 09:28 | US ---
EXAMINATION TYPE: US venous doppler duplex LE LT DATE OF EXAM: 03/05/2025 8:58 AM COMPARISON: US 2023 CLINICAL INDICATION: Female, 84 years old with history of R60.9 EDEMA, UNSPECIFIED; No hx of DVT. Pat ient takes aspirin. Edema x a couple months, worse x 3 weeks. TECHNIQUE: The lower extremity deep venous system is examined utilizing real time linear array sonog fanny with graded compression, color doppler sonography, and spectral doppler. SIDE PERFORMED: Left FINDINGS: VESSELS IMAGED: Common Femoral Vein Deep Femoral Vein Greater Saphenous Vein * Femoral Vein Popliteal Vein Small Saphenous Vein * Proximal Calf Veins (* superficial vessels) Left Leg: No evidence of DVT. Exam is limited - patient could not tolerate compression of distal f emoral vein. Color flow seen. IMPRESSION: No visualized deep venous thrombosis of the left lower extremity. Patient could not tolerate compress ion of the distal femoral vein however there is color flow seen. [facility], , 03/05/2025 9:25 AM
== END | disposition home or self-care (01) ==
LOC: RADUSWWP 08:39
PROVIDERS: ATTEND Internal Medicine Geriatric Medicine
DX: R60.0 Localized edema (principal); Z79.82 Long term (current) use of aspirin